=== PATIENT | male | born 1935 | race Caucasian/White ===

== ENCOUNTER → 2017-10-31 10:21 | Outpatient (CLI) | payer MEDICARE, OTHER | END | disposition home or self-care (01) | LOC: D.US 10-24 11:00 | DX: I87.2 Venous insufficiency (chronic) (peripheral) (principal) ==

== ENCOUNTER 2018-08-18 14:02 | Observation (INO) | payer MEDICARE, OTHER ==
[~2018-08-18] VITALS: Ht 177.8 cm; Wt 108.9 kg
[2018-08-18] MEDS ORDERED: ZOCOR20 MG PO (14:31)
[2018-08-18] MEDS ORDERED: ELAVIL25 MG PO (14:31)
[2018-08-18] MEDS ORDERED: PIOGLITAZONE15 MG PO (14:33)
[2018-08-18] MEDS ORDERED: METOPROLOL TART50 MG PO (14:34)
[2018-08-18] MEDS ORDERED: GLIPIZIDE10 MG PO (14:34)
[2018-08-18 14:56] LABS: BASOPHILS 0.2 % (0-2); EOSINOPHILS 0.5 % (0-7); HEMATOCRIT 41.9 % (42.0-54.0); HEMOGLOBIN 13.7 g/dL (13.5-17.5); IMMATURE GRANULOCYTES 0.6 % (0-5); MCH 31.8 pg (26.0-34.0); MCHC 32.7 g/dL (31.0-37.0); MCV 97.2 fL (80.0-100.0); MEAN PLATELET VOLUME 10.7 fL (7.4-10.4); NEUTROPHILS 87.7 % (40-80); PLATELET COUNT 133 10x3/uL (130-400); RBC 4.31 10x6/uL (4.20-6.10); RDW 13.8 % (11.5-14.5); WBC 9.3 10x3/uL (4.8-10.8)
[2018-08-18 15:05] LABS: APTT 26.8 SECONDS (22.8-39.4); INR 1.09 (0.85-1.17); PROTIME 13.6 SECONDS (11.6-15.0)
[2018-08-18 15:12] LABS: ALBUMIN 2.8 g/dL (3.4-5.0); ALKALINE PHOSPHATASE 41 U/L (46-116); ALT (SGPT) 17 U/L (10-68); BILIRUBIN - TOTAL 0.47 mg/dL (0.2-1.3); CALC OSMOLALITY 288 mosm/kg (275-300); CALCIUM 8.5 mg/dL (8.5-10.1); CARBON DIOXIDE 25.9 mmol/L (21.0-32.0); CHLORIDE - SERUM 105 mmol/L (98-107); CREATININE - SERUM 1.3 mg/dL (0.6-1.3); GLUCOSE 204 mg/dL (74-106); POTASSIUM - SERUM 4.2 mmol/L (3.5-5.1); PROTEIN - SERUM 6.5 g/dL (6.4-8.2); SODIUM 138 mmol/L (136-145); UREA NITROGEN 31 mg/dL (7-18); eGFR NON AFRICAN AMERICAN 56 mL/min (90-120)
[2018-08-18 15:23] LABS: CREATINE KINASE 186 UL (21-232); MAGNESIUM - SERUM 1.9 mg/dL (1.8-2.4); THYROID STIMULATING HORMONE 4.05 uIU/mL (0.36-3.74)
[2018-08-18 15:25] LABS: TROPONIN-I < 0.017 ng/mL (0.000-0.060)
[2018-08-18 17:01] VITALS: BP 160/84
[2018-08-18 17:58] VITALS: BP 152/94
[2018-08-18 22:39] VITALS: BP 161/77; BMI 34.5
[2018-08-18 23:48] LABS: CREATINE KINASE 437 UL (21-232); TROPONIN-I 0.017 ng/mL (0.000-0.060)
[2018-08-18 23:49] LABS: CKMB 2.5 U/L (0.0-3.6)
[2018-08-19 00:19] VITALS: BP 144/74
[2018-08-19 06:06] LABS: BASOPHILS 0.2 % (0-2); EOSINOPHILS 0.6 % (0-7); HEMOGLOBIN 13.3 g/dL (13.5-17.5); IMMATURE GRANULOCYTES 0.2 % (0-5); LYMPHOCYTES 13.5 % (15-50); MCHC 33.3 g/dL (31.0-37.0); MCV 96.4 fL (80.0-100.0); MEAN PLATELET VOLUME 10.7 fL (7.4-10.4); MONOCYTES 6.8 % (2-11); NEUTROPHILS 78.7 % (40-80); PLATELET COUNT 149 10x3/uL (130-400); RBC 4.15 10x6/uL (4.20-6.10); WBC 8.1 10x3/uL (4.8-10.8)
[2018-08-19 06:30] LABS: ANION GAP 11.8 mmol/L (8-16); CALCIUM 8.4 mg/dL (8.5-10.1); CARBON DIOXIDE 26.5 mmol/L (21.0-32.0); CREATININE - SERUM 1.2 mg/dL (0.6-1.3); POTASSIUM - SERUM 4.3 mmol/L (3.5-5.1)
[2018-08-19 08:47] VITALS: BP 128/60
[2018-08-19 13:02] VITALS: BP 144/68
[2018-08-19 13:11] VITALS: Ht 177.8 cm; Wt 108.9 kg
[2018-08-19 15:50] VITALS: BP 124/58
[2018-08-19 20:00] VITALS: BP 115/61
[2018-08-20] VITALS: BP 139/76
[2018-08-20 04:00] VITALS: BP 149/63
[2018-08-20 06:37] LABS: BASOPHILS 0.3 % (0-2); HEMATOCRIT 38.8 % (42.0-54.0); HEMOGLOBIN 12.8 g/dL (13.5-17.5); IMMATURE GRANULOCYTES 0.4 % (0-5); LYMPHOCYTES 12.4 % (15-50); MCH 31.8 pg (26.0-34.0); MCV 96.5 fL (80.0-100.0); MEAN PLATELET VOLUME 11.3 fL (7.4-10.4); MONOCYTES 9.3 % (2-11); NEUTROPHILS 76.6 % (40-80); PLATELET COUNT 153 10x3/uL (130-400); RBC 4.02 10x6/uL (4.20-6.10); RDW 14.2 % (11.5-14.5); WBC 7.1 10x3/uL (4.8-10.8)
[2018-08-20 06:53] LABS: ANION GAP 11.5 mmol/L (8-16); CALCIUM 8.6 mg/dL (8.5-10.1); CARBON DIOXIDE 25.3 mmol/L (21.0-32.0); CREATININE - SERUM 1.3 mg/dL (0.6-1.3); POTASSIUM - SERUM 3.8 mmol/L (3.5-5.1)
[2018-08-20 08:00] VITALS: BP 131/82
[2018-08-20 12:00] VITALS: BP 126/65
[2018-08-20 14:27] LABS: APPEARANCE CLEAR (CLEAR); BILIRUBIN NEGATIVE (NEGATIVE); COLOR YELLOW (YELLOW); GLUCOSE 500 mg/dL (NEGATIVE); KETONE SMALL mg/dL (NEGATIVE); NITRITE NEGATIVE (NEGATIVE); PROTEIN NEGATIVE (NEGATIVE); SPECIFIC GRAVITY 1.025 (1.005-1.020); UROBILINOGEN NORMAL (NORMAL)
--- NOTE | 2018-08-20 15:21 | MORECARE ---
CASE MANAGEMENT DISCHARGE SUMMARY PATIENT: CHRISTIAN GRAF UNIT: [id number] ADM DATE: 08/18/18 AGE: 82 : 33 SEX: M ROOM/BED: D.6248 AUTHOR: ASHELY MARIE PHYSICIAN: REFERRING PHYSICIAN: ROSEANNE BALDERAS MD DATE OF SERVICE: 08/20/18 Discharge Plan Patient Name: CHRISTIAN GRAF [facility] [facility] 1935 Planned Disposition: Inpatient Rehab Anticipated Discharge Date: 08/20/18 Discharge Date: Expected LOS: 2 Initial Reviewer: [email or web address] Initial Review Date: 08/20/2018 Generated: 08/20/18 4:21 pm Comments DCP- Discharge Planning Updated by [email or web address]: Monty Fried on 08/20/18 2:[address] Patient Name: CHRISTIAN GRAF Admission Status: ER Accout number: [id number] Admission Date: 08-18-2018 : 1935 Admission Diagnosis: Attending: ROSEANNE BALDERAS Current LOS: 2 Anticipated DC Date: 08-20-2018 Planned Disposition: Inpatient Rehab Primary Insurance: MEDICARE A & B PLANNED EXTERNAL PROVIDER: [facility] INPATIENT REHAB Discharge Planning Comments: CM RECEIVED ORDER FOR INPATIENT REHAB PRESCREENING. CM MET WITH PT AND SON IN ROOM TO DISCUSS DISCHARGE PLANNING AND NEEDS. CHRISTIAN GRAF provided verbal consent to discuss current and ongoing needs with/in the presence of: HIS SON. PT REPORTS LIVING AT HOME DEPENDENTLY WITH SPOUSE WHO ASSISTS PT WITH DRESSING. PT HAS SEVERAL OLD WALKER WITH NO MEDICAL EQUIPMENT PROVIDER PREFERENCE. PT HAS NO OUTSIDE SERVICES ASSISTING IN THE HOME. CM DISCUSSED AVAILABILITY OF HOME HEALTH, REHAB SERVICES AND MEDICAL EQUIPMENT. CM DISCUSSED INPATIENT REHAB PROVIDERS, LOCATIONS, PROVIDERS AND SERVICES. PT INITIALLY STATES HE WOULD RATHER GO HOME. PT'S SON DISCUSSED REHAB WITH PT AND EXPLAINED THAT PT IS NOT ABLE TO CURRENTLY GET OUT OF BED INDEPENDENTLY NOR IS HE ABLE TO STAND FROM A CHAIR WITHOUT ASSITANCE. CM DISCUSSED SAFE DISCHARGE PLAN. PT AGREES TO CONSIDER INPATIENT REHAB AT [place] RECOMMENDED BY DR. BALDERAS. PT REPORTS HIS SON WILL PICK HIM UP FOR DISCHARGE HOME FROM REHAB. CM NOTIFIED ROSELINE OF INPATIENT REHAB WHO INFORMED CM THAT THERE IS STILL PENDING CONSULT FOR DR. HERNANDEZ. CM WAITING CONSULT FROM DR. HERNANDEZ AND ADMISSION DETERMINATION FROM [facility] RE[facility]. Pediatrics Physician: Monty Fried DCPIA - Discharge Planning Initial Assessment Updated by [email or web address]: Monty Fried on 08/20/18 3:10 pm * Is the patient Alert and Oriented? Yes * How many steps to enter\exit or inside your home? * PCP DR. BALDERAS * Pharmacy [facility]. * Preadmission Environment Home with Family * ADLs Partial Dependent * Partial ADLs (Assistance needed) Dressing * Equipment Walker * Other Equipment NO MEDICAL EQUIPMENT PROVIDER PREFERENCE * List name and contact numbers for known caregivers / representatives who currently or will assist patient after discharge: MARLEY GRAF, SPOUSE, * Verbal permission to speak to the caregivers and representatives has been obtained from the patient. Yes * Community resources currently utilized None * Please name any agencies selected above. NONE * Additional services required to return to the preadmission environment? Yes * Can the patient safely return to the preadmission environment? Yes * Has this patient been hospitalized within the prior 30 days at any hospital? No Patient Name: CHRISTIAN GRAF Page 47546 at 1521 All edits/amendments must be made on the electronic document DICTATION DATE: 08/20/181520 INGOT STRIPPER: SANTY 08/20/181520 RPT#: [id number] DC DATE: STATUS: ADM IN [facility] [address] [place] [address] END OF REPORT
[2018-08-20 16:37] VITALS: BP 130/76
[2018-08-20 20:00] VITALS: BP 141/82
[2018-08-21 00:18] VITALS: BP 144/68
[2018-08-21 04:34] VITALS: BP 145/94
[2018-08-21 06:50] LABS: BASOPHILS 0.1 % (0-2); EOSINOPHILS 0.8 % (0-7); HEMATOCRIT 36.6 % (42.0-54.0); HEMOGLOBIN 12.1 g/dL (13.5-17.5); IMMATURE GRANULOCYTES 0.1 % (0-5); LYMPHOCYTES 8.6 % (15-50); MCH 31.5 pg (26.0-34.0); MCHC 33.1 g/dL (31.0-37.0); MCV 95.3 fL (80.0-100.0); MEAN PLATELET VOLUME 10.4 fL (7.4-10.4); MONOCYTES 7.8 % (2-11); NEUTROPHILS 82.6 % (40-80); PLATELET COUNT 133 10x3/uL (130-400); RBC 3.84 10x6/uL (4.20-6.10); WBC 7.1 10x3/uL (4.8-10.8)
[2018-08-21 07:19] LABS: ANION GAP 12.2 mmol/L (8-16); CALCIUM 8.5 mg/dL (8.5-10.1); CARBON DIOXIDE 23.7 mmol/L (21.0-32.0); CREATININE - SERUM 1.1 mg/dL (0.6-1.3); POTASSIUM - SERUM 3.9 mmol/L (3.5-5.1)
[2018-08-21 07:41] VITALS: BP 165/75
[2018-08-21 11:36] VITALS: BP 135/61
--- NOTE | 2018-08-21 11:56 | MORECARE ---
CASE MANAGEMENT DISCHARGE SUMMARY PATIENT: CHRISTIAN GRAF UNIT: [id number] ADM DATE: 08/18/18 AGE: 82 : 33 SEX: M ROOM/BED: D.[facility]5 AUTHOR: ASHELY MARIE PHYSICIAN: REFERRING PHYSICIAN: ROSEANNE BALDERAS MD DATE OF SERVICE: 08/21/18 Discharge Plan Patient Name: CHRISTIAN GRAF [facility] [facility] 1935 Planned Disposition: Inpatient Rehab Anticipated Discharge Date: 08/21/18 Discharge Date: Expected LOS: 3 Initial Reviewer: [email or web address] Initial Review Date: 08/20/2018 Generated: 08/21/18 12:55 pm Comments DCP- Discharge Planning Updated by [email or web address]: Monty Fried on 08/21/18 10:[address] Patient Name: CHRISTIAN GRAF Encounter No: [id number] : 1935 Primary Insurance: MEDICARE A & B Anticipated DC Date: 08-21-2018 Planned Disposition: Inpatient Rehab External Planned Provider: [facility] INPATIENT REHAB DCP follow-up note: CM RECEIVED MESSAGE FROM MAHNAZ OF INPATIENT REHAB, THEY PLAN TO ACCEPT PT TODAY FOR REHAB; HUAN OF INPATIENT REHAB ADVISED THEY WILL ACCEPT AFTER WOUND CARE LOOKS [facility]. PT NOTIFIED, IN AGREEMENT WITH DISCHARGE TO INPATIENT REHAB. CM NOTIFIED DR. BALDERAS'S NURSE SAADIA. NOTIFY INPATIENT REHAB ONCE DISCAHRGE ORDERS ARE RECEIVED. [facility] INPATIENT REHAB TO CONTACT MED 2 NURSE WITH ROOM NUMBER WHEN READY TO ACCEPT PT AND NURSE REPORT. DARRELL Arguello DCP- Discharge Planning Updated by [id number]: Monty Fried on 08/20/18 2:[address] Patient Name: CHRISTIAN GRAF Admission Status: ER Accout number: [id number] Admission Date: 08-18-2018 : 1935 Admission Diagnosis: Attending: ROSEANNE BALDERAS Current LOS: 2 Anticipated DC Date: 08-20-2018 Planned Disposition: Inpatient Rehab Primary Insurance: MEDICARE A & B PLANNED EXTERNAL PROVIDER: [facility] INPATIENT REHAB Discharge Planning Comments: CM RECEIVED ORDER FOR INPATIENT REHAB PRESCREENING. CM MET WITH PT AND SON IN ROOM TO DISCUSS DISCHARGE PLANNING AND NEEDS. CHRISTIAN GRAF provided verbal consent to discuss current and ongoing needs with/in the presence of: HIS SON. PT REPORTS LIVING AT HOME DEPENDENTLY WITH SPOUSE WHO ASSISTS PT WITH DRESSING. PT HAS SEVERAL OLD WALKER WITH NO MEDICAL EQUIPMENT PROVIDER PREFERENCE. PT HAS NO OUTSIDE SERVICES ASSISTING IN THE HOME. CM DISCUSSED AVAILABILITY OF HOME HEALTH, REHAB SERVICES AND MEDICAL EQUIPMENT. CM DISCUSSED INPATIENT REHAB PROVIDERS, LOCATIONS, PROVIDERS AND SERVICES. PT INITIALLY STATES HE WOULD RATHER GO HOME. PT'S SON DISCUSSED REHAB WITH PT AND EXPLAINED THAT PT IS NOT ABLE TO CURRENTLY GET OUT OF BED INDEPENDENTLY NOR IS HE ABLE TO STAND FROM A CHAIR WITHOUT ASSITANCE. CM DISCUSSED SAFE DISCHARGE PLAN. PT AGREES TO CONSIDER INPATIENT REHAB AT [place] RECOMMEND[place] BY DR. BALDERAS. PT REPORTS HIS SON WILL PICK HIM UP FOR DISCHARGE HOME FROM REHAB. CM NOTIFIED ROSELINE OF INPATIENT REHAB WHO INFORMED CM THAT THERE IS STILL PENDING CONSULT FOR DR. HERNANDEZ. CM WAITING CONSULT FROM DR. HERNANDEZ AND ADMISSION DETERMINATION FROM [facility] INPATIENT RE[facility]. Crushing Machine Operator: Monty Fried DCPIA - Discharge Planning Initial Assessment Updated by [email or web address]: Monty Fried on 08/20/18 3:10 pm * Is the patient Alert and Oriented? Yes * How many steps to enter\exit or inside your home? * PCP DR. BALDERAS * Pharmacy [facility]. * Preadmission Environment Home with Family * ADLs Partial Dependent * Partial ADLs (Assistance needed) Dressing * Equipment Walker * Other Equipment NO MEDICAL EQUIPMENT PROVIDER PREFERENCE * List name and contact numbers for known caregivers / representatives who currently or will assist patient after discharge: MARLEY GRAF, SPOUSE, * Verbal permission to speak to the caregivers and representatives has been obtained from the patient. Yes * Community resources currently utilized None * Please name any agencies selected above. NONE * Additional services required to return to the preadmission environment? Yes * Can the patient safely return to the preadmission environment? Yes * Has this patient been hospitalized within the prior 30 days at any hospital? No Last DP export: 08/20/18 2:21 p Patient Name: CHRISTIAN GRAF Page 74903 at 1156 All edits/amendments must be made on the electronic document DICTATION DATE: 08/21/181154 FURNACE OPERATOR OIL OR GAS: SANTY 08/21/181154 RPT#: [id number] DC DATE: STATUS: ADM IN [facility] [address] [place] [address] END OF REPORT
--- NOTE | 2018-08-21 12:11 | MORECARE ---
CASE MANAGEMENT DISCHARGE SUMMARY PATIENT: CHRISTIAN GRAF UNIT: [id number] ADM DATE: 08/18/18 AGE: 82 : 33 SEX: M ROOM/BED: D.[facility]5 AUTHOR: ASHELY MARIE PHYSICIAN: REFERRING PHYSICIAN: ROSEANNE BALDERAS MD DATE OF SERVICE: 08/21/18 Discharge Plan Patient Name: CHRISTIAN GRAF [facility] [facility] 1935 Planned Disposition: Inpatient Rehab Anticipated Discharge Date: 08/21/18 Discharge Date: Expected LOS: 3 Initial Reviewer: [email or web address] Initial Review Date: 08/20/2018 Generated: 08/21/18 1:11 pm Comments DCP- Discharge Planning Updated by [email or web address]: Monty Fried on 08/21/18 10:[address] Patient Name: CHRISTIAN GRAF Encounter No: [id number] : 1935 Primary Insurance: MEDICARE A & B Anticipated DC Date: 08-21-2018 Planned Disposition: Inpatient Rehab External Planned Provider: [facility] INPATIENT REH[facility] DCP follow-up note: CM RECEIVED MESSAGE FROM MAHNAZ OF INPATIENT REHAB, THEY PLAN TO ACCEPT PT TODAY FOR REHAB; HUAN OF INPATIENT REHAB ADVISED THEY WILL ACCEPT AFTER WOUND CARE LOOKS AT [facility]. PT NOTIFIED, IN AGREEMENT WITH DISCHARGE TO INPATIENT REHAB. CM NOTIFIED DR. BALDERAS'S NURSE SAADIA. NOTIFY INPATIENT REHAB ONCE DISCAHRGE ORDERS ARE RECEIVED. [facility] INPATIENT REHAB TO CONTACT MED 2 NURSE WITH ROOM NUMBER WHEN READY TO ACCEPT PT AND NURSE REPORT. DARRELL Arguello DCP- Discharge Planning Updated by [id number]: Monty Fried on 08/20/18 2:[address] Patient Name: CHRISTIAN GRAF Admission Status: ER Accout number: [id number] Admission Date: 08-18-2018 : 1935 Admission Diagnosis: Attending: ROSEANNE BALDERAS Current LOS: 2 Anticipated DC Date: 08-20-2018 Planned Disposition: Inpatient Rehab Primary Insurance: MEDICARE A & B PLANNED EXTERNAL PROVIDER: [facility] INPATIENT REH[facility] Discharge Planning Comments: CM RECEIVED ORDER FOR INPATIENT REHAB PRESCREENING. CM MET WITH PT AND SON IN ROOM TO DISCUSS DISCHARGE PLANNING AND NEEDS. CHRISTIAN GRAF provided verbal consent to discuss current and ongoing needs with/in the presence of: HIS SON. PT REPORTS LIVING AT HOME DEPENDENTLY WITH SPOUSE WHO ASSISTS PT WITH DRESSING. PT HAS SEVERAL OLD WALKER WITH NO MEDICAL EQUIPMENT PROVIDER PREFERENCE. PT HAS NO OUTSIDE SERVICES ASSISTING IN THE HOME. CM DISCUSSED AVAILABILITY OF HOME HEALTH, REHAB SERVICES AND MEDICAL EQUIPMENT. CM DISCUSSED INPATIENT REHAB PROVIDERS, LOCATIONS, PROVIDERS AND SERVICES. PT INITIALLY STATES HE WOULD RATHER GO HOME. PT'S SON DISCUSSED REHAB WITH PT AND EXPLAINED THAT PT IS NOT ABLE TO CURRENTLY GET OUT OF BED INDEPENDENTLY NOR IS HE ABLE TO STAND FROM A CHAIR WITHOUT ASSITANCE. CM DISCUSSED SAFE DISCHARGE PLAN. PT AGREES TO CONSIDER INPATIENT REHAB AT [place] RECOMMENDED BY DR. BALDERAS. PT REPORTS HIS SON WILL PICK HIM UP FOR DISCHARGE HOME FROM REHAB. CM NOTIFIED ROSELINE OF INPATIENT REHAB WHO INFORMED CM THAT THERE IS STILL PENDING CONSULT FOR DR. HERNANDEZ. CM WAITING CONSULT FROM DR. HERNANDEZ AND ADMISSION DETERMINATION FROM [facility] INPAT[facility] RE[facility]. Animal Keeper: Monty Fried DCPIA - Discharge Planning Initial Assessment Updated by [id number]: Monty Fried on 08/20/18 3:10 pm * Is the patient Alert and Oriented? Yes * How many steps to enter\exit or inside your home? * PCP DR. BALDERAS * Pharmacy [facility]. * Preadmission Environment Home with Family * ADLs Partial Dependent * Partial ADLs (Assistance needed) Dressing * Equipment Walker * Other Equipment NO MEDICAL EQUIPMENT PROVIDER PREFERENCE * List name and contact numbers for known caregivers / representatives who currently or will assist patient after discharge: MARLEY GRAF, SPOUSE, * Verbal permission to speak to the caregivers and representatives has been obtained from the patient. Yes * Community resources currently utilized None * Please name any agencies selected above. NONE * Additional services required to return to the preadmission environment? Yes * Can the patient safely return to the preadmission environment? Yes * Has this patient been hospitalized within the prior 30 days at any hospital? No Last DP export: 08/21/18 10:55 a Patient Name: CHRISTIAN GRAF Page [id number] Electronically Signed by ASHELY [facility] on 08/21/18 at 1211 All edits/amendments must be made on the electronic document DICTATION DATE: 08/21/181210 CLUB LOUNGE ATTENDANT: SANTY 08/21/181210 RPT#: [id number] DC DATE: STATUS: ADM IN [facility] [address] [place] [address] END OF REPORT
[2018-08-21 15:28] VITALS: BP 149/64
[2018-08-21] MEDS ORDERED: ULTRAM50 MG PO (16:34)
== END 2018-08-21 17:45 ==
LOC: D.ER 14:02 → D.EDHOLD 17:51 → D.M2 17:51 → OBSVTIME 17:54 → D.M2 17:58
PROVIDERS: Emergency Medicine; Family Medicine; ADMIT Family Medicine; ATTEND Family Medicine
DX: R55 Syncope and collapse (principal); I44.30 Unspecified atrioventricular block; E11.9 Type 2 diabetes mellitus without complications; M51.36 Other intervertebral disc degeneration, lumbar region; M47.816 Spondylosis without myelopathy or radiculopathy, lumbar region; S32.009A Unspecified fracture of unspecified lumbar vertebra, initial encounter for closed fracture; W18.30XA Fall on same level, unspecified, initial encounter; I10 Essential (primary) hypertension; E78.5 Hyperlipidemia, unspecified

== ENCOUNTER 2018-08-21 18:00 | Inpatient (IN) | payer MEDICARE, OTHER ==
[~2018-08-21] VITALS: Ht 177.8 cm; Wt 106.6 kg
--- NOTE | ~2018-08-21 | RHP ---
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 HISTORY OF PRESENT ILLNESS: The patient is an 82-year-old gentleman who presents secondary to AV block, syncope, and collapse. He presented to ED on 08/18/2018, becoming dizzy, diaphoretic and palpitations. He had a syncopal episode prior to coming in. He says he was at [employer], seated in the social [employer] dining room and it seemed to come out of nowhere. He had no positional changes. No nausea, no chest pain. He was alert and oriented times 3 when he presented. EKG showed a sinus rhythm with first degree AV block and PACs, right bundle branch block, left anterior fascicular block. Labs showed BUN and creatinine ratio, which was elevated and a random blood sugar. The patient did look somewhat dehydrated. CT of his spine showed acute mildly displaced spinous fracture of L5. He was admitted with cardiology consultation for evaluation of his syncope and heart block. Telemetry. Sliding scale for diabetes. Dr. Ken was consulted. No brace or surgical intervention was recommended. Previously, the patient was independent with a rolling walker for ADLs and mobility. He still drives. He is very active. Currently, he is mod to max assist for ADLs and mobility. He had been immobilized, which affects his tolerance to PT. He is weak, especially in his lower extremities. He has got fair balance. He is mod assist for sit to stand and bed to chair. He has ambulated 6 feet with PT using a rolling walker, gait belt, and 35% assistance. He and his are motivated for him to regain his strength and return back home. Barriers to his discharge are continued telemetry for arrhythmia, weakness, only ambulating 6 feet, and back pain of 8/10 requiring a regular dosages of pain medicine. COMORBIDITIES: In this patient include heart block, syncope and collapse, back pain, weakness, falls, dehydration, bifascicular block, hypertension, palpitations, severe spinal stenosis and severe bilateral neural foraminal narrowing in his back. PAST MEDICAL HISTORY: Significant for diabetes, hypertension, hernia, chronic back pain. PAST SURGICAL HISTORY: None. ALLERGIES: No known drug allergies. CURRENT MEDICATIONS: Include Actos 30 mg daily, metoprolol 50 mg daily. He is on Glucotrol 5 mg b.i.d. with meals. He is on tramadol 100 mg q.6 hours p.r.n. pain, simvastatin 20 mg at bedtime, and Elavil 25 mg at bedtime. HABITS: No current alcohol or tobacco use. FAMILY HISTORY: Noncontributory. SOCIAL HISTORY: The patient hopes to return back home and get back to his prior level of functioning. REVIEW OF SYSTEMS: HISTORY AND PHYSICAL [id number] CHRISTIAN GRAF GENERAL: Does complain of little bit of weakness and fatigue. HEENT: Denies cold, cough, or congestion. CARDIOVASCULAR: Denies chest pain. PHYSICAL EXAMINATION: VITAL SIGNS: Stable, afebrile. GENERAL: A somewhat obese gentleman, in no acute distress, alert upon exam. HEENT: Normocephalic and atraumatic. Mucosa moist. NECK: Supple, with no lymphadenopathy. LUNGS: Clear at this time with no wheeze, rhonchi or rales. HEART: Regular rate and rhythm. No murmurs, rubs or gallops. ABDOMEN: Benign. EXTREMITIES: No clubbing, cyanosis or edema. NEUROLOGIC: Does have some noted weakness. LABORATORY DATA: His white count is 6.3, H&H 12 and 37, and platelet count was noted to be 136. His sodium is 137, potassium 4.4, BUN and creatinine of 40 and 1.0 and blood sugar is noted to be 179. ASSESSMENT: This is an 82-year-old gentleman admitted to the rehab with a working diagnosis of AV heart block. The patient has potential to make improvement. We instituted the following multidisciplinary therapies include, but not limited to physical, occupational, respiratory, speech, nutritional services, prosthetics and orthotics. Given his complex medical condition and risk for more complications, rehabilitation services cannot be provided at a low level of care such as skilled nurse facility. PLAN: 1. Admit to [facility] for intensive inpatient therapy to include the following disciplines: A. Physical therapy to improve gait, all transfer skills and bed mobility to a modified independent level. B. Occupational therapy to a modified independent level. C. Case management to assist with discharge planning and placement options. D. Nutrition to assist with nutritional needs. E. Rehabilitation nursing to assist in monitoring the patient's underlying medical conditions and to assist with any type of bowel or bladder management. 2. The patient's current medication and medical care will be continued. 3. We will discuss this patient during care team staff meeting this week. 4. I will see again in the a.m. TRANSINT:[id number] Voice Confirmation ID: [id number] DOCUMENT ID: [id number] JOSE notes whether there has been none or any medical/functional change since admission: - No change since prescreen. JOSE attests patient continues to be appropriate for IRF: - Continues to be appropriate. HISTORY AND PHYSICAL [id number] CHRISTIAN GRAF JOHN SCOTT MD CC: [id number] DICTATION DATE: 08/22/18 1038 ASSOCIATE PRINCIPAL: 08/22/18 1249 ADM IN [place] [id number] [place] [id number]
[~2018-08-21 18:00] MED LIST: ELAVIL25 MG PO; GLIPIZIDE10 MG PO; METOPROLOL TART50 MG PO; PIOGLITAZONE15 MG PO; ULTRAM50 MG PO; ZOCOR20 MG PO
[2018-08-21 19:00] VITALS: BP 166/76
--- NOTE | 2018-08-21 20:20 | NUR ---
GREETED PATIENT AND INTRODUCED MYSELF. HAD PATIENT SIGN ADMISSION PAPERWORK. PATIENT IS LAYING IN SUPINE POSITION. HOB AT 35 DEGREES. DENIES ANY FURTHER NEEDS AT THIS TIME. CALL LIGHT IN REACH.
[2018-08-21 23:03] VITALS: BP 166/76; BMI 33.7
--- NOTE | 2018-08-22 01:06 | NUR ---
PATIENT LAYING IN BED AND VERY CONFUSED OF HIS SURROUNDINGS. KEEPS TRYING TO GET UP. BED ALARM IS ON AN ACTIVE. CALL LIGHT IN REACH.
--- NOTE | 2018-08-22 05:38 | NUR ---
PATIENT AWAKE AND CONFUSED. CLEANED OF INCONTINENT URINE. COMPLETE LINEN CHANGE. PATIENT REPOSITIONED IN BED FOR COMFORT. CALL LIGHT IN REACH.
[2018-08-22 07:14] LABS: BASOPHILS 0.2 % (0-2); EOSINOPHILS 1.9 % (0-7); HEMATOCRIT 37.1 % (42.0-54.0); HEMOGLOBIN 12.1 g/dL (13.5-17.5); IMMATURE GRANULOCYTES 0.5 % (0-5); LYMPHOCYTES 11.4 % (15-50); MCH 31.3 pg (26.0-34.0); MCHC 32.6 g/dL (31.0-37.0); MCV 96.1 fL (80.0-100.0); MEAN PLATELET VOLUME 10.3 fL (7.4-10.4); MONOCYTES 7.6 % (2-11); NEUTROPHILS 78.4 % (40-80); PLATELET COUNT 136 10x3/uL (130-400); RBC 3.86 10x6/uL (4.20-6.10); RDW 14.1 % (11.5-14.5); WBC 6.3 10x3/uL (4.8-10.8)
[2018-08-22 07:22] LABS: CALC OSMOLALITY 287 mosm/kg (275-300); CALCIUM 8.7 mg/dL (8.5-10.1); CARBON DIOXIDE 27.3 mmol/L (21.0-32.0); CHLORIDE - SERUM 103 mmol/L (98-107); GLUCOSE 179 mg/dL (74-106); POTASSIUM - SERUM 4.4 mmol/L (3.5-5.1); SODIUM 137 mmol/L (136-145); UREA NITROGEN 40 mg/dL (7-18); eGFR NON AFRICAN AMERICAN 76 mL/min (90-120)
[2018-08-22 08:00] VITALS: BP 165/78
[2018-08-22 09:33] VITALS: Ht 177.8 cm; Wt 106.6 kg
--- NOTE | 2018-08-22 12:32 | NUR ---
SITTING IN WC IN ROOM EATING LUNCH AND VISITING WITH FAMILY. DENIES NEEDS OR C/O. CALL LIGHT IN REACH
[2018-08-22 19:00] VITALS: BP 144/61
--- NOTE | 2018-08-22 19:30 | NUR ---
GREETED PATIENT AND INTRODUCED MYSELF. PATIENT IS SITTING IN WHEELCHAIR AND DENIES ANY NEEDS AT THIS TIME. CALL LIGHT IN REACH.
--- NOTE | 2018-08-23 01:19 | NUR ---
PATIENT RESTING QUIETLY WITH EYES CLOSED. HOB AT 30 DEGREES. SR UP X 2. BED IN LOWEST POSITION. ALARM ON AND WORKING PROPERLY. RESPIRATIONS EVEN. NO S/S OF DISTRESS. CALL LIGHT IN REACH.
--- NOTE | 2018-08-23 01:45 | NUR ---
PATIENT AWAKE AND SCREAMING. PATIENT IS CONFUSED TO WHERE HE IS AND CANT UNDERSTAND WHY HIS IS NOT LAYING NEXT TO TIME. REORIENTATED PATIENT TO SURROUNDINGS. CALL LIGHT IN REACH.
[2018-08-23 07:55] LABS: BASOPHILS 0.2 % (0-2); EOSINOPHILS 1.7 % (0-7); HEMATOCRIT 36.9 % (42.0-54.0); HEMOGLOBIN 12.2 g/dL (13.5-17.5); IMMATURE GRANULOCYTES 0.3 % (0-5); LYMPHOCYTES 9.4 % (15-50); MCH 31.5 pg (26.0-34.0); MCHC 33.1 g/dL (31.0-37.0); MCV 95.3 fL (80.0-100.0); MEAN PLATELET VOLUME 10.1 fL (7.4-10.4); MONOCYTES 7.1 % (2-11); NEUTROPHILS 81.3 % (40-80); PLATELET COUNT 141 10x3/uL (130-400); RBC 3.87 10x6/uL (4.20-6.10); RDW 13.9 % (11.5-14.5); WBC 6.1 10x3/uL (4.8-10.8)
[2018-08-23 08:02] VITALS: BP 178/96
[2018-08-23 08:08] LABS: CALC OSMOLALITY 281 mosm/kg (275-300); CALCIUM 8.4 mg/dL (8.5-10.1); CARBON DIOXIDE 24.7 mmol/L (21.0-32.0); CHLORIDE - SERUM 102 mmol/L (98-107); CREATININE - SERUM 0.9 mg/dL (0.6-1.3); GLUCOSE 176 mg/dL (74-106); POTASSIUM - SERUM 3.9 mmol/L (3.5-5.1); SODIUM 135 mmol/L (136-145); UREA NITROGEN 36 mg/dL (7-18); eGFR NON AFRICAN AMERICAN 85 mL/min (90-120)
--- NOTE | 2018-08-23 16:00 | NUR ---
SITTING UP IN WC IN ROOM. DENIES NEEDS OR C/O. CALL LIGHT IN REACH
--- NOTE | 2018-08-23 19:45 | NUR ---
PT IS RESTING IN BED WITH EYES OPEN. ALERT AND ORIENTED X 3. VOICED COMPLAINT OF JOSE LEG PAIN LEVEL OF 7. MEDICATED PER MAR. SPOUSE IS AT BEDSIDE. JOSE LEGS ELEVATED UP ON PILLOW. SR'S ARE UP X 3 IN BED. CALL LIGHT AND BEDSIDE TABLE ARE WITHIN EASY REACH.
[2018-08-23 20:06] VITALS: BP 168/96
--- NOTE | 2018-08-23 21:44 | NUR ---
PT RESTING IN BED WATCHING TV. NO NEEDS VOICED.
--- NOTE | 2018-08-24 00:01 | NUR ---
PT RESTING IN BED WITH EYES OPEN. PT IS VERY CONFUSED. STATES HE JUST WRECKED HIS JEEP, AND DOESNT KNOW WHAT TO DO. I ATTEMPTED TO REORIENT PT WITHOUT SUCCESS. HE DID CALM DOWN.
--- NOTE | 2018-08-24 01:29 | NUR ---
RESTING IN BED WITH RESPIRATIONS UNLABORED. CALLS OUT PERIODICALLY FOR ASSISTANCE. NO ACUTE DISTRESS NOTED. CALL LIGHT IN REACH.
--- NOTE | 2018-08-24 05:12 | NUR ---
PT RESTING IN BED WITH EYES CLOSED. NO ACUTE DISTRESS NOTED.
--- NOTE | 2018-08-24 15:38 | NUR ---
LAYING IN BED RESTING QUIETLY WITH EYES CLOSED. HAD PAIN MEDICATION RECENTLY AND VISITED WITH FAMILY WHO CAME TO SEE HIM. LEXII ASST WITH ALL ADL'S. UNABLE TO STAND BY SELF. CALL LIGHT IN REACH
--- NOTE | 2018-08-24 16:28 | NUR ---
PT C/O "SEEING BUGS" ON TV AND SINK. HE THINKS HIS MEDICATION MAY BE THE CAUSE. DR CUNNINGHAM NOTIFIED.
--- NOTE | 2018-08-24 17:57 | NUR ---
STILL CONFUSED. IS STILL SEEING THINGS IN ROOM BUT IS NOW TELLING HIS ROOM MATE "THIS NURSE HAS HER HANDS FULL WITH TWO PATIENTS, ONE IS HAVING TROUBLE WITH HIS BOWELS AND THE OTHER ONE KEEPS SEEING BUGS ON THE TV AND SINK." (TALKING ABOUT HIMSELF AND HIS ROOM MATE). CALL LIGHT IN REACH
[2018-08-24 20:00] VITALS: BP 131/63
--- NOTE | 2018-08-24 21:41 | NUR ---
THE PATIENT APPEARED TO BE SLEEPING BUT EASILY AWOKE WHEN STAFF ENTERED HIS ROOM. BED IS IN THE LOW POSITION WITH SIDERAILS X2 AND CALL LIGHT WITHIN REACH. THE PATIENT DEMONSTRATES APPROPRIATE USE OF A CALL LIGHT. THE PATIENT APPEARS COMFORTABLE WITH NO QUESTIONS OR CONCERNS AT THIS TIME.
--- NOTE | 2018-08-25 02:34 | NUR ---
THE PATIENT APPEARS TO BE SLEEPING COMFORTABLY. BED IS IN THE LOW POSITION WITH SIDERAILS X2 AND CALL LIGHT IN REACH.
--- NOTE | 2018-08-25 10:32 | NUR ---
PATIENT AWAKE AND SLIGHTLY CONFUSED. STATES THAT HIS BACK HURTS BUT DOES NOT WANT TO TAKE ANY PAIN MEDICATION. ATE 50% OF BREAKFAST. SLEEPING OFF AND ON THIS MORNING. WILL CONTINUE TO MONITOR. CALL LIGHT WITHIN REACH.
[2018-08-25 12:19] VITALS: BP 187/96
--- NOTE | 2018-08-25 14:01 | NUR ---
HERE VISITING. THINKS THAT PATIENT COULD HAVE A UTI BECAUSE OF ALL HIS CONFUSION THAT HE IS HAVING. TOLD HER THAT WE WOULD LET THE DOCTOR KNOW AND SEE IF A UA COULD BE ORDERED. EXPLAINED TO THE THAT HIS WBC'S ARE NORMAL AND TEMPERATURE IS ALSO IN A NORMAL RANGE AND THAT CONFUSION COULD BE FROM BEING IN A NEW ENVIRONMENT AND CURRENT ILLNESS BUT WE WOULD STILL LET DR. CUNNINGHAM KNOW. STATED THAT WHAT-EVER WE THOUGHT WAS BEST IS FINE.
--- NOTE | 2018-08-25 19:50 | NUR ---
PT IS RESTING IN WC WITH EYES OPEN. ALERT TO SELF ONLY. CONFUSED TO TIME, PLACE AND SITUATION. UNABLE TO RE ORIENT PT AT THIS TIME. PT ASSISTED WITH INC. CARE WITH TOTAL ASSIST, AND TRANSFERRED INTO BED WITH 2 PERSON MAX ASSIST. BLE NOTED WITH 4= EDEMA. RIGHT LEG IS WEEPING A BIT. SR'S ARE UP X 3 IN BED. CALL LIGHT AND BEDSIDE TABLE ARE WITHIN EASY REACH.
[2018-08-25 20:00] VITALS: BP 140/70
[2018-08-25 21:37] VITALS: BP 140/70
--- NOTE | 2018-08-25 22:47 | NUR ---
PT RESTING IN BED WITH EYES CLOSED.
--- NOTE | 2018-08-26 00:38 | NUR ---
RESTING IN BED WITH EYES CLOSED AND RESPIRATIONS UNLABORED. NO DISTRESS NOTED. CALL LIGHT IN REACH.
--- NOTE | 2018-08-26 06:21 | NUR ---
PT IS RESTING IN BED WITH EYES OPEN. NO NEEDS VOCIED.
[2018-08-26 07:06] LABS: BASOPHILS 0.1 % (0-2); EOSINOPHILS 0.6 % (0-7); HEMOGLOBIN 13.2 g/dL (13.5-17.5); IMMATURE GRANULOCYTES 0.8 % (0-5); LYMPHOCYTES 7.4 % (15-50); MCH 31.7 pg (26.0-34.0); MCHC 33.8 g/dL (31.0-37.0); MCV 93.8 fL (80.0-100.0); MEAN PLATELET VOLUME 10.4 fL (7.4-10.4); MONOCYTES 6.3 % (2-11); NEUTROPHILS 84.8 % (40-80); RBC 4.16 10x6/uL (4.20-6.10); RDW 13.7 % (11.5-14.5); WBC 7.8 10x3/uL (4.8-10.8)
[2018-08-26 07:08] LABS: CALC OSMOLALITY 283 mosm/kg (275-300); CALCIUM 8.8 mg/dL (8.5-10.1); CARBON DIOXIDE 23.4 mmol/L (21.0-32.0); CHLORIDE - SERUM 102 mmol/L (98-107); GLUCOSE 184 mg/dL (74-106); POTASSIUM - SERUM 3.5 mmol/L (3.5-5.1); SODIUM 136 mmol/L (136-145); UREA NITROGEN 31 mg/dL (7-18); eGFR NON AFRICAN AMERICAN 75 mL/min (90-120)
[2018-08-26 07:09] LABS: PLATELET COUNT 197 10x3/uL (130-400)
--- NOTE | 2018-08-26 08:00 | NUR ---
PATIENT VERY CONFUSED THIS MORNING. ASSISTED UP IN WHEELCHAIR TO EAT BRAKFAST BUT DID NOT EAT VERY MUCH BREAKFAST. MESSAGE LEFT FOR DR. CUNNINGHAM ABOUT GETTING A UA FOR POSSIBLE UTI DUE TO CONFUSION AND FOUL SMELLING URINE. WILL CONTINUE TO MONITOR.
[2018-08-26 08:06] VITALS: BP 181/83
--- NOTE | 2018-08-26 11:00 | NUR ---
ASYA RT STATED THAT PATIENT WAS C/O PAIN IN LEFT KNEE. REQUESTED THAT WE GET AN XRAY. XRAY ORDERED.
--- NOTE | 2018-08-26 11:20 | NUR ---
RADIOLOGY HERE TO DO XRAY.
--- NOTE | 2018-08-26 12:15 | NUR ---
XRAY RESULTS FAXED TO DR. CABA OFFICE.
--- NOTE | 2018-08-26 12:30 | NUR ---
DR. CUNNINGHAM HERE. ORDERED CONSULT FOR KNEE WITH DR. RAPHAEL.
--- NOTE | 2018-08-26 12:34 | NUR ---
PATIENT SITTING UP IN WHEELCHAIR EATING LUNCH. WAS UP FOR THERAPY BUT DIDN'T DO MUCH DUE TO PAIN. STILL HAVING SOME CONFUSION BUT NOT BAD IT WAS THIS MORNING.
--- NOTE | 2018-08-26 13:37 | NUR ---
'S OFFICE CALLED AND INFORMED OF CONSULT FOR PATIENT. DR. ESQUEDA IS POLICE RADIO DISPATCHER THIS WEEK. OFFICE STATED THAT THEY WILL LET [facility] KNOW. IS HERE AND INFORMED HER OF XRAY AND RESULTS. DR. CUNNINGHAM ALSO GAVE ORDERS FOR A UA.
--- NOTE | 2018-08-26 13:41 | NUR ---
ASSISTED PATIENT TO THE BATHROOM. VERY HARD FOR PATIENT TO STAND. C/O PAIN TO HIP AND LEG. MEDICATED WITH PRN ULTRAM. WILL CONTINUE TO MONITOR.
--- NOTE | 2018-08-26 16:00 | NUR ---
UA COLLECTED USING ASEPTIC TECHNIQUE. SMALL BLOOD CLOT OBTAINED WITH URINE. URINE SENT TO LAB. DR. ESQUEDA'S NURSE CAME BY TO SEE PATIENT. WILL ORDER A MRI
[2018-08-26 16:52] LABS: APPEARANCE TURBID (CLEAR); BILIRUBIN NEGATIVE (NEGATIVE); COLOR RED (YELLOW); GLUCOSE NEGATIVE (NEGATIVE); KETONE NEGATIVE (NEGATIVE); NITRITE NEGATIVE (NEGATIVE); PROTEIN TRACE mg/dL (NEGATIVE); UROBILINOGEN NORMAL (NORMAL)
[2018-08-26 16:53] LABS: BACTERIA FEW /hpf (NONE SEEN); RED CELLS - URINE >50 /hpf (0-5); WHITE CELLS - URINE 0-5 /hpf (0-5)
[2018-08-26 19:00] VITALS: BP 155/77
--- NOTE | 2018-08-26 19:44 | NUR ---
PT RESTING IN BED WITH EYES OPEN. HE IS SOMNELENT, AND NOT SPEAKING TO ME. VSS. NO ACUTE DISTRESS NOTED. JOSE FEET ELEVATED UP ON 2 PILLOWS TO PROMOTE REDUCTION OF 4+ EDEMA. SR'S ARE UP X 3 IN BED. CALL LIGHT AND BEDSIDE TABLE ARE WITHIN EASY REACH. BED ALARM IS ON.
--- NOTE | 2018-08-26 20:14 | NUR ---
BLADDER SCAN DONE TO CHECK FOR RETAINMENT. ZERO SHOWED FOR RESULTS X 5 SCANS.
--- NOTE | 2018-08-26 20:16 | NUR ---
PT IS STEADILY TALKING TO THE AIR ON HIS LEFT SIDE. HE DID NOT EVER ACKNOWLEDGE THAT I WAS IN THE ROOM DOING THE BLADDER SCAN. HE TALKED THE ENTIRE TIME IF HAVING A CONVERSATION WITH SOMEBODY.
--- NOTE | 2018-08-26 21:17 | NUR ---
PT RESTING IN BED WITH HEAD PULLED OVER INTO THE LEFT SIDE RAIL. HE IS STEADILY LOOKING AT THE WALL TO HIS LEFT AND TALKING. PT REPOSITIONED WITH 2 PERSON MAX ASSIST. HE VOICED COMPLAINT OF BACK PAIN WHILE TURNING, AND VOIDED INC. AT THIS TIME. LINDA CARE DONE. PT WOULD ANSWER QUESTIONS AT THIS TIME, BUT NOT WITH APPROPRIATE ANSWERS. PILLOWS USED TO POSITION PT, AND ELEVATE FEET UP OFF BED. CALL LIGHT AND BEDSIDE TABLE ARE WITHIN EASY REACH.
--- NOTE | 2018-08-27 00:10 | NUR ---
PT INC. OF URINE. LINDA CARE AND PAD CHANGE DONE. PT REPOSITIONED IN BED.
--- NOTE | 2018-08-27 00:25 | NUR ---
IN BED WITH RESPIRATIONS UNLABORED. REMAINS CONFUSED AND SOMEWHAT RESTLESS. INCONTINENCE CARE GIVEN. SAFETY MEASURES IN PLACE. WILL CONTINUE TO MONITOR.
--- NOTE | 2018-08-27 03:00 | NUR ---
PT IS RESTING QUIETLY IN BED WITH EYES CLOSED. RESPS ARE EVEN AND UNLABORED. NO ACUTE DISTRESS NOTED.
--- NOTE | 2018-08-27 05:57 | NUR ---
PT RESTING IN BED WITH EYES CLOSED. AWOKE EASILY TO VERBAL STIMULI. PT STATES HE HAD A GOOD NIGHTS SLEEP, AND IS FEELING MUCH BETTER THIS MORNING.
[2018-08-27 08:00] VITALS: BP 176/78
--- NOTE | 2018-08-27 09:55 | NUR ---
LAYING ON BACK RESTING QUIETLY IN BED. WILL AROUSE TO LIGHT TACTILE STEMULI. IS CONFUSED BUT PLEASANT. CALL LIGHT IN REACH
--- NOTE | 2018-08-27 10:29 | NUR ---
Nutrition follow up: Regular diet ordered with no concentrated sweets Pt has less than optimal po intake past 2 days, however was eating good prior to this. Pt is drinking some Boost to supplement Pt is sleeping now. Spoke with nursing Will continue to monitor and follow up
--- NOTE | 2018-08-27 14:39 | NUR ---
MAX ASST TO TRANSFER TO BED THEN TO COT FOR MRI. WAS HAVING INCREASED PAIN TO LEFT HIP AND KNEE WITH TRANSFER. STILL CONFUSED.
--- NOTE | 2018-08-27 15:23 | NUR ---
PATIENT ADMITTED TO REHAB FROM ACUTE FLOOR. DR. BALDERAS IS HIS PCP. DME AT HOME IS A WALKER. DISCHARGE PLANS ARE FOR PATIENT O RETURN HOME AT [facility]. WILL CONTINUE TO FOLLOW WITH PATIENT.
[2018-08-27 19:01] VITALS: BP 158/68
--- NOTE | 2018-08-27 19:29 | NUR ---
PT IN BED LOW POSITION, FAMILY AT BEDSIDE, EYES CLOSED, AROUSED EASILY TO VOICE, BREATHING EVEN AND UNLABORED, NO IMMEDIATE NEEDS NOTED, ORIENTED X'S 4, FLUIDS AND CALL LIGHT WITHIN REACH
--- NOTE | 2018-08-28 03:51 | NUR ---
PT IN BED LOWEST POSITION, EYES CLOSED AROUSES EASILY TO VOICE, NO NEEDS NOTED, FLUIDS AND CALL LIGHT WITHIN REACH
[2018-08-28 07:45] VITALS: BP 152/65
--- NOTE | 2018-08-28 08:00 | NUR ---
SHIFT ASSMT COMPLETED.CL IN REACH.BREAKFAST GIVEN
--- NOTE | 2018-08-28 12:00 | NUR ---
SITTING UP IN WC.LINCH GIVEN.
--- NOTE | 2018-08-28 13:58 | NUR ---
PATIENT IN REHAB ROOM. WORKING WITH PHYSICAL THERAPIST. DENIES ANY PAIN/DISC
--- NOTE | 2018-08-28 15:31 | NUR ---
CARE TEAM MEETING: PATIENT SPOUSE ATTENDED MEETING. RECOMMENDATION WERE FOR PATIENT TO BE REFERRED TO A SNF . SHE WILL GO VISIT [facility] FOR POSSIBLE ADMISSION. WILL CONTINUE TO FOLLOW WITH PATIENT. TENATIVE DSICHARGE DATE IS 09/03/18.
[2018-08-28 19:00] VITALS: BP 138/66
--- NOTE | 2018-08-28 22:45 | NUR ---
PT IN BED LOWEST POSITION, EYES OPEN, A&O, BREATHING EVEN AND UNLABORED, NO NEEDS NOTED, FLUIDS AND CALL LIGHT WITHIN REACH
--- NOTE | 2018-08-29 08:00 | NUR ---
SHIFT ASSMT COMPLETED
[2018-08-29 08:21] VITALS: BP 125/76
[2018-08-29 19:00] VITALS: BP 170/84
--- NOTE | 2018-08-29 19:40 | NUR ---
PT SITTING UP IN BED, LOWEST POSITION,EYES CLOSED, AROUSES EASILY TO VOICE, BREATING SHALLOW EVEN AND UNLABORED, FLUIDS AND CALL LIGHT WITHIN REACH
[2018-08-30 08:00] VITALS: BP 146/92
--- NOTE | 2018-08-30 08:08 | NUR ---
SITTING UP IN BED FOR BREAKFAST. TENDS TO LEAN TO THE LEFT IN BED AND IN A CHAIR. IS CONFUSED. DOES NOT KNOW WHERE HE IS. HE STATED HE WAS CONFUSED THIS MORNING. CALL LIGHT IN REACH
--- NOTE | 2018-08-30 11:06 | NUR ---
PER PATIENT AND REQUEST A REFERAL TO [facility] HAS BEEN MADE FOR POSSIBLE ADMISSION ON 09/03/18. WILL CONTINUE TO FOLLOW WITH PATIENT.
--- NOTE | 2018-08-30 12:32 | NUR ---
SITTING UP IN WC IN ROOM EATING LUNCH. STATES HE FEELS BETTER AFTER IMPACTION REMOVED. ENCOURAGED HIM TO DRINK MORE WATER. CALL LIGHT IN REACH
--- NOTE | 2018-08-30 14:56 | NUR ---
PT C/O INCREASED PAIN TO LOW BACK AND LEGS. LAWRENCE PAYNE (DR ORTIZ'S NURSE) NOTIFIED AND SHE ADDED NORCO. MED GIVEN TO PT AND HE STATED EVEN IF IT MADE HIM MORE CONFUSED HE WAS OK WITH THAT BECAUSE HE HURT SO BAD. NURSE HAD SPOKEN TO HIS EARLIER ABOUT POSSIBILITY OF BACK BRACE, DIFFERENT PAIN MED AND WARM PACKS TO BACK FOR PAIN RELIEF. SHE WAS WORRIED ABOUT INCREASED CONFUSION WITH MORE OR DIFFERENT PAIN MEDS ASKED TO HOLD OFF FOR NOW ON THAT. HIS CONFUSION IS IMPROVING AT PRESENT. PT HAS CALL LIGHT IN REACH. HE WAS PLACED BACK IN BED BY THERAPY AND MADE COMFORTABLE POSSIBLE.
[2018-08-30 19:00] VITALS: BP 143/69
--- NOTE | 2018-08-30 19:27 | NUR ---
PT RESTING IN BED WITH EYES OPEN. ALERT AND ORIENTED X 3. PT VOICED COMPLAINT OF LEFT KNEE ACHING. HE STATED HE THOUGHT THE WEDGE UNDER HIS FEET WAS CAUSING IT. I REMOVED THE WEDGE, AND ELEVATED FEET OFF BE WITH A PILLOW. PT VOICED TOTAL RELIEF. 3+ EMEMA NOTED IN BOTH FEET. SR'S ARE UP X 3 IN BED. CALL LIGHT AND BEDSIDE TABLE ARE WITHIN EASY REACH. BED ALARM IS ON.
--- NOTE | 2018-08-30 22:53 | NUR ---
RESTING IN BED WITH EYES CLOSED.
--- NOTE | 2018-08-31 00:43 | NUR ---
RESTING IN BED WITH EYES CLOSED.
--- NOTE | 2018-08-31 01:24 | NUR ---
I have reviewed this patient and I concur with the Shift Assessment completed by the Licensed Practical Nurse today this shift.
--- NOTE | 2018-08-31 06:02 | NUR ---
PT RESTING IN BED WITH EYES OPEN. PT STATES HE FEELS MUCH BETTER THIS MORNING, BUT STILL HAS A PAIN LEVEL OF 6 IN HIS BACK. MEDICATED PER JUN. NO FURTHER NEEDS VOICED.
[2018-08-31 07:30] VITALS: BP 169/77
--- NOTE | 2018-08-31 10:11 | NUR ---
RESTING QUIETLY IN BED WITH EYES CLOSED. RESP EFFORT NON LABORED. HEAD OF BED ELEVATED 70 DEGREES. CALL LIGHT IN REACH
--- NOTE | 2018-08-31 16:06 | NUR ---
AWAKE AND WATCHING TV WHILE LAYING IN BED. IN ROOM VISITING WITH PT.
--- NOTE | 2018-08-31 19:04 | NUR ---
PT IS RESTING IN BED WITH EYES OPEN. ALERT TO SELF AND PLACE. CONFUSED TO TIME AND SITUATION. PLEASANT AND COOPERATIVE WITH STAFF. PT STATES HE FEELS BETTER TONIGHT. HE IS AGUA CALIENTE. 2+ EDEMA NOTED IN BLE. FEET ELEVATED UP ON A PILLOW WITH HEELS OFF BED. SR'S ARE UP X 2 IN BED. CALL LIGHT AND BEDSIDE TABLE ARE WITHIN EASY REACH.
[2018-08-31 20:24] VITALS: BP 122/74
--- NOTE | 2018-08-31 21:37 | NUR ---
PT RESTING IN BED WATCHING TV. NO NEEDS VOICED.
--- NOTE | 2018-09-01 00:40 | NUR ---
PT VOICED COMPLAINT OF BACK PAIN LEVEL OF 8. MEDICATED PER JUN.
--- NOTE | 2018-09-01 00:59 | NUR ---
I have reviewed this patient and I concur with the Shift Assessment completed by the Licensed Practical Nurse today this shift.
--- NOTE | 2018-09-01 04:16 | NUR ---
PT INC. OF A VERY LARGE AMOUNT OF URINE WITH A VERY STRONG AMMONIA SMELL. BED PADS CHANGED, AND LINDA CARE GIVEN. PT REPOSITIONED IN BED. URINAL PLACED BETWEEN LEGS.
--- NOTE | 2018-09-01 06:03 | NUR ---
RESTING IN BED WITH EYES OPEN. VOICED COMPLAINT OF BACK PAIN LEVEL OF 8. MEDICATED PER JUN.
[2018-09-01 07:30] VITALS: BP 198/97
--- NOTE | 2018-09-01 07:50 | NUR ---
SITTING UP IN BED RESTING QUIETLY. NO S/S DISTRESS. CALL LIGHT IN REACH
--- NOTE | 2018-09-01 08:10 | NUR ---
I have reviewed this patient and I concur with the Shift Assessment completed by the Licensed Practical Nurse today this shift.
--- NOTE | 2018-09-01 10:54 | NUR ---
RESTING QUIETLY IN BED. VISITED THIS AM AND HAS NOW GONE HOME. HE USES URINAL IN BED SOME STRESS INCONTINENCE NOTED. CALL LIGHT IN REACH
--- NOTE | 2018-09-01 15:51 | NUR ---
LAYING IN BED TALKING TO VISITORS. C/O PAIN TO LOW BACK. PAIN MEDS GIVEN ORDERED. CALL LIGHT IN REACH
--- NOTE | 2018-09-01 19:15 | NUR ---
PT IS RESTING IN BED WITH EYES OPEN. ALERT TO SELF AND PLACE. CONFUSED TO TIME AND SITUATION. PT STATES: "AM I EVER GOING TO GET BETTER AND GET OUT OF THIS PLACE." JOSE FEET ELEVATED UP ON PILLOWS TO REDUCE 2+ EDEMA. NO WEEPING NOTED. PT INC. OF URINE. LINDA CARE AND PAD CHANGE DONE. SR'S ARE UP X 2 IN BED. CALL LIGHT AND BEDSIDE TABLE ARE WITHIN EASY REACH.
[2018-09-01 19:25] VITALS: BP 182/84
--- NOTE | 2018-09-01 21:27 | NUR ---
PATIENT SLEEPING. WILL CONTINUE TO MONITOR. CALL LIGHT WITHIN REACH.
--- NOTE | 2018-09-02 01:22 | NUR ---
INC. CARE GIVEN. AND BED LINENS CHANGED. BED BATH GIVEN. PT ENCOURAGED TO USE URINAL/AND OR CALL THE NURSE WHEN HE VOIDS.
--- NOTE | 2018-09-02 04:53 | NUR ---
PT RESTING IN BED WITH EYES OPEN. INC. CARE GIVEN.
[2018-09-02 07:00] LABS: BASOPHILS 0.1 % (0-2); EOSINOPHILS 0.5 % (0-7); HEMATOCRIT 40.9 % (42.0-54.0); HEMOGLOBIN 13.8 g/dL (13.5-17.5); IMMATURE GRANULOCYTES 1.1 % (0-5); LYMPHOCYTES 8.3 % (15-50); MCH 31.7 pg (26.0-34.0); MCHC 33.7 g/dL (31.0-37.0); MCV 93.8 fL (80.0-100.0); MEAN PLATELET VOLUME 10.2 fL (7.4-10.4); MONOCYTES 8.6 % (2-11); NEUTROPHILS 81.4 % (40-80); PLATELET COUNT 205 10x3/uL (130-400); RBC 4.36 10x6/uL (4.20-6.10); RDW 13.8 % (11.5-14.5); WBC 11.1 10x3/uL (4.8-10.8)
[2018-09-02 07:33] LABS: ANION GAP 13.4 mmol/L (8-16); CALCIUM 8.7 mg/dL (8.5-10.1); CARBON DIOXIDE 25.9 mmol/L (21.0-32.0); CREATININE - SERUM 1.2 mg/dL (0.6-1.3); POTASSIUM - SERUM 4.3 mmol/L (3.5-5.1)
[2018-09-02 08:00] VITALS: BP 163/55
--- NOTE | 2018-09-02 08:00 | NUR ---
PT RESTING IN BED WITH EYES OPEN CALL LIGHT IN REACH NO PROBLEMS WILL MONITER
--- NOTE | 2018-09-02 15:58 | NUR ---
PT RESTING IN BED WITH EYES OPEN CALL LIGHT IN REACH WILL MONITER
--- NOTE | 2018-09-02 16:29 | NUR ---
I have reviewed this patient and I concur with the Shift Assessment completed by the Licensed Practical Nurse today this shift.
[2018-09-02 19:00] VITALS: BP 163/72
--- NOTE | 2018-09-02 19:35 | NUR ---
PT LYING IN BED WATCHING TV. CALL LIGHT IN REACH. DENIES NEEDS AT THIS TIME. BED IN LOW SIDE RAILS X2. RESP EVEN WITH WHEEZES ON EXPIRATORY. PT IS INCONT X2. BED IS CLEAN. A/O X2. TOTAL ASSIST. WILL CONTINUE TO MONITOR.
--- NOTE | 2018-09-02 22:27 | NUR ---
PT RESTING QUIETLY. CALL LIGHT IN REACH. NO SIGNS OF DISTRESS OR PAIN. LUNGS WHEEZES. BOWEL ACTIVE X4. RESP EVEN. PAIN PILL GIVEN EARLIER WITH NIGHT MEDS. NO COMPLAINTS OF PAIN SINCE MED WAS GIVEN. WCTM
--- NOTE | 2018-09-03 02:13 | NUR ---
RESTING IN BED WITH EYES CLOSED AND RESPIRATIONS UNLABORED. HAD SOME CONFUSION EARLIER IN SHIFT. NO DISTRESS NOTED AT THIS TIME. CALL LIGHT IN REACH.
--- NOTE | 2018-09-03 02:15 | NUR ---
RESTING IN BED EYES CLOSED AND WITH RESPIRATIONS UNLABORED. NO DISTRESS NOTED. CALL LIGHT IN REACH.
--- NOTE | 2018-09-03 03:00 | NUR ---
PT RESTING QUIETLY. CALL LIGHT IN REACH. NO SIGNS OF DISTRESS OR PAIN. RESP EVEN AND UNLABORED. [facility] BED ALARM ON.
--- NOTE | 2018-09-03 06:32 | NUR ---
FSBS 156
--- NOTE | 2018-09-03 07:27 | NUR ---
RESTING WO DISTRESS. NO C/O PAIN AT THIS TIME.
--- NOTE | 2018-09-03 07:37 | NUR ---
PT RESTING IN BED WITH EYES OPEN CALL LIGHT IN REACH NO PROBLEMS WILL MONITER
[2018-09-03 08:00] VITALS: BP 164/72
[2018-09-03] MEDS ORDERED: HYDROCODON-ACE1 EAC7 PO (09:26)
--- NOTE | 2018-09-03 10:19 | NUR ---
I have reviewed this patient and I concur with the Shift Assessment completed by the Licensed Practical Nurse today this shift.
--- NOTE | 2018-09-03 10:33 | NUR ---
PATIENT DISCHARGING TO [facility] VIA FACILITY VAN TODAY. NO HOME HEALTH OR DME NEEDED AT THIS TIME. AN APPOINTMENT WITH DR. BALDERAS WILL BE MADE AT TIME OF DISCHARGE FROM FACILTIY. DR. HERNANDEZ OFFICE WILL CALL SPOUSE WITH AN APPOINTMENT. PATIENT CHOICE FORM AND IMFM FORMS SIGNED, COPY GIVEN TO PATIENT AND FILED IN CHART. DISCHARGE INSTRUCTIONS WITH FIM DATA FAXED TO PCP, SNF AND REVIEWED WITH PATIENT.
--- NOTE | 2018-09-03 14:00 | NUR ---
PT DISCHARGED TO [facility]. PT LEFT VIA WHEELCHAIR.REPORT CALLED TO [facility].DISCHARGE SUMMARY AND MEDS SENT WITH SECRETARIAL STENOGRAPHER PT TOLERATED WELL
== END 2018-09-03 16:26 | DRG 310 ==
LOC: D.REHAB 18:00
PROVIDERS: ADMIT Emergency Medicine; ATTEND Emergency Medicine
DX: I44.0 Atrioventricular block, first degree (principal); R55 Syncope and collapse; M54.9 Dorsalgia, unspecified; R53.1 Weakness; E86.0 Dehydration; Z91.81 History of falling; I10 Essential (primary) hypertension; R00.2 Palpitations; M48.00 Spinal stenosis, site unspecified; E11.9 Type 2 diabetes mellitus without complications; S32.059D Unspecified fracture of fifth lumbar vertebra, subsequent encounter for fracture with routine healing; R41.82 Altered mental status, unspecified; M54.5 Low back pain; S83.242D Other tear of medial meniscus, current injury, left knee, subsequent encounter; M70.62 Trochanteric bursitis, left hip

== ENCOUNTER 2018-09-20 07:25 | Inpatient (IN) | payer MEDICARE, OTHER ==
[~2018-09-20] VITALS: Ht 177.8 cm; Wt 107.7 kg
--- NOTE | ~2018-09-20 | HEMODYNAMI ---
PATIENT:CHRISTIAN GRAF MEDICAL RECORD: [id number] : 31 LOCATION:[place] [address] ADMISSION DATE: 09/20/18 Generatedon:09/23/201816:26 Patient name: CHRISTIAN GRAF Patient #: [id number] SSN: DO B: 1935 Date of study: 09/23/2018 Page: Of Hemodynamic Procedure Report Patient Data Patient Demographics Procedure consent was obtained First Name: CHRISTIAN Gender: Male Last Name: LESIA : 1935 Patient #: [id number] Age: 83 year(s) Race: Unknown Additional ID: [id number] Contact details [address]: [address] [place] [address] State: [place] City: [place] Zip code: [address] Past Medical History Allergies: No known allergies Admission Admission Data Admission Date: 09/20/2018 Admission Time: 12:15 Room #: [facility] Height (in.): 70 BSA: 2.24 (m2) Height (cm.): 177.8 BMI: 33.72 (kg/m2) Weight (lbs.): 235 Weight (kg.): 106.59 Procedure Procedure Types Cath Procedure Peripheral Cath Diagnostic Procedure Supervisor Chassis Assembly Peripheral Procedures Venography IVC/SVC Inferior Venacava Filter Procedure Description Procedure Date Procedure Date: 09/23/2018 Procedure Start Time: 16:15 Procedure Staff Name Function Doug De La Cruz MD Performing Physician Bridget Dwyer RT Dry Chain Puller Monik Douglass RN Nurse Julianne Pastor RN Nurse Sahara Tristan RT Scrub Procedure Data Cath Procedure Fluoroscopy Diagnostic fluoroscopy Total fluoroscopy Time: 1.1 time: 1.1 min min Diagnostic fluoroscopy Total fluoroscopy dose: 412 dose: 412 mGy mGy Diagnostic catheters Device Type Used For End Catheter Placement Merit ULTRA BOLUS FLUSH 5Fr 65CM catheter ([id number]) Cook CHG-B 5FR 65CM catheter ([id number]) Procedure Medications Medication Administration Route Dosage Lidocaine 1% added to field 20 Heparin Flush Bag added to field 2 bags (1000units/500ml NS) Fentanyl I.V. 50 mcg Hemodynamics Rest BSA: 2.24 (m2) O2 Consumption: Estimated: 256.63 (ml/min) O2 Consumption indexed : Estimated:114.57 (ml/min/m) Heart Rate: 73 (bpm) Snapshots Pre Cath Intra NCS Post Cath Vital Signs Time Heart Resp SPO2 etCO2 NIBP (mmHg) Rhythm Pain Sedation Rate (ipm) (%) (mmHg) Status Level (bpm) 15:55:21 72 17 95 26.9 142/64(117) NSR 0 (11) 10(A) , No pain 15:59:39 73 22 98 26.1 143/68(111) NSR 0 (11) 10(A) , No pain 16:04:00 70 16 94 21.6 129/61(105) NSR 0 (11) 9(A) , No pain 16:08:59 70 17 97 19.4 Measuring NSR 0 (11) 9(A) , No pain 16:09:11 72 16 96 20.2 130/64(99) NSR 0 (11) 9(A) , No pain 16:12:23 73 23 91 0.7 134/65(102) NSR 0 (11) 10(A) , No pain 16:16:39 76 24 90 29.1 137/64(108) NSR 0 (11) 10(A) , No pain 16:20:49 73 18 89 33.6 145/75(112) NSR 0 (11) 10(A) , No pain 16:25:07 62 17 88 27.6 135/71(106) NSR 0 (11) 10(A) , No pain Medications Time Medication Route Dose Verified Delivered Reason Notes Effec tiveness by by 16:08:55 Lidocaine 1% added 20ml Doug Camacho used for to vial De La Cruz De La Cruz procedure field MD LOGAN 16:09:08 Heparin Flush added 2 Doug Camacho used for Bag to bags De La Cruz De La Cruz procedure (1000units/500ml field MD LOGAN NS) 16:09:25 Fentanyl I.V. 50 Doug Whitaker for back mcg De La Cruz Dawit PERSAUD pain MD Procedure Log Time Note 15:18:46 Patient Height : 70 inches 15:18:50 Patient Weight : 235 lbs 15:25:38 Use device set IR Diagnostic 15:26:17 PERCUTANEOUS ENTRY 19GA needle opened to sterile field. 15:26:18 TUBING Contrast Injection High Pressure ([id number]) opened to sterile field. 15:26:19 SHEATH 5FR [place] ([id number]) opened to sterile field. 15:26:20 Tegaderm 4 x 4 (1626W) opened to sterile field. 15:26:21 Sterile Angiographic Pack opened to sterile field. 15:26:22 Bag Decanter (2002S) opened to sterile field. 15:26:22 ACIST Manifold (89131) opened to sterile field. 15:26:23 ACIST Hand Control (95933) opened to sterile field. 15:26:24 ACIST Syringe (73973) opened to sterile field. 15:43:34 Time tracking: Regular hours (M-F 7:00 - 5:00) 15:43:56 Plan of Care:Hemodynamics will remain stable., Cardiac rhythm will remain stable., Comfort level will be maintained., Respiratory function will remain adequate., Patient/ family verbilizes understanding of procedure., Procedure tolerated without complication., Recovers from procedure without complications.. 15:44:04 Patient received from [employer] to IR Alert and oriented. Tansferred to table in Supine position. 15:44:11 Signed procedure consent form obtained from patient. 15:44:26 H&P Date Dictated: 09/23/2018 Within 30 days and on chart.. 15:44:30 Pre-procedure instructions explained to patient. 15:44:31 Pre-op teaching completed and patient verbalized understanding. 15:44:33 Family in waiting room. 15:44:38 Patient NPO since Lunch. 15:44:56 Patient allergic to No known allergies 15:45:14 Is the patient allergic to Iodine/contrast media? No. 15:45:19 Is patient on blood thinner?Yes 15:45:25 ACC The patient was administered the following blood thiners within the last 24 hours: ACCLovenox 15:45:29 Patient diabetic? Yes. 15:45:31 If diabetic: On Metformin? No 15:45:33 - 15:45:36 ----Pre-sedation anethsthesia assessment.---- 15:45:39 Previous problem with sedation/anesthesia? No ? 15:45:41 Snore? Yes 15:45:44 Sleep apnea? No 15:45:47 Deviated septum? No 15:45:49 Opens mouth fully? Yes 15:45:51 Sticks out tongue? Yes 15:46:05 Airway obstruction? Yes ? 15:46:31 Dentures? No ? 15:46:39 IV patent on arrival in left forearm with D5/.45%NaCl at [facility]. 15:46:50 Right groin area was prepped with chlora-prep and draped in sterile fashion 15:46:53 - 15:54:07 Vital chart was started 15:59:00 - 15:59:04 ECG and BP/O2 sat monitors applied to patient. 15:59:06 Baseline sample Acquired. 15:59:07 Full Disclosure recording started 15:59:09 - 15:59:25 - 16:05:27 A [employer] ULTRA BOLUS FLUSH 5Fr 65CM catheter ([id number]) was advanced over the wire and used for . 16:06:32 --------ALL STOP TIME OUT------ 16:06:33 Final Timeout: patient, procedure, and site verified with staff and physician. All members of the team are in agreement. 16:07:30 Procedure started. 16:08:55 Lidocaine 1% 20ml vial added to field was administered by Doug De La Cruz MD; used for procedure; 16:09:08 Heparin Flush Bag (1000units/500ml NS) 2 bags added to field was administered by Doug De La Cruz MD; used for procedure; 16:09:25 Fentanyl 50 mcg I.V. was administered by Julianne Pastor RN; for back pain; 16:09:54 FILTER Tech LP Vena Cava ([id number]) opened to sterile field. 16:15:20 A [employer] CHG-B 5FR 65CM catheter ([id number]) was advanced over the wire and used for . 16:16:37 Venogram performed 16:19:37 Vena Tech LP IVC filter was placed below renal veins. 16:20:11 Procedure ended.(Physican Out) 16:21:30 Fluoroscopy time 01.10 minutes. 16:21:36 Fluoroscopy dose: 412 mGy 16:21:36 Flurop Dose total: 412 16:22:06 Procedure and supply charges have been captured, reviewed, submitted an d are correct. 16:22:51 Report given to [employer]. 16:26:11 Vital chart was stopped Device Usage Item Name Manufacture Quantity Catalog Number Hospital Part Current [facility] Lot# / Charge Number Stock Stock Serial# Code PERCUTANEOUS Cook Medical 1 [id number] 105587 [id number] 5 [id number] ENTRY 19GA needle TUBING Sky 1 [id number] 993304 570755 383007 5 Contrast Medical Injection High Pressure ([id number]) SHEATH 5FR Terumo 1 [id number] 058360 038099 030249 5 [place] (VCA678) Tegaderm 4 x 4 3M 1 1626W 649498 470892 508510 5 (1626W) Sterile Cardinal 1 [id number] 493724 050340 5 Angiographic Health Pack Bag Decanter Microtek 1 2001S 172001 35122 084627 5 (2001S) Medical Inc. ACIST Manifold Acist 1 88172 248438 341178 792111 5 (39675) Medical Systems Inc ACIST Hand Acist 1 07160 853938 879303 037064 5 Control Medical (94779) Systems Inc ACIST Syringe Acist 1 22496 204009 025040 566391 20 (50944) Medical Systems Inc Merit ULTRA Merit 1 [id number] 509326 628826 5 BOLUS FLUSH Medical 5Fr 65CM catheter ([id number]) FILTER Tech LP B. Sandoval 1 [id number] 992370 691331 988666 5 Vena Cava (0911770) Cook CHG-B 5FR Deline[employer] Medical 1 [id number] 496822 948280 005094 5 65CM catheter (U52199) Signature Audit [facility] Stage Time Signature Unsigned Intra-Procedure 09/23/2018 Bridget Dwyer 4:26:08 PM RT(R) [facility] [address] [place] [address]
[~2018-09-20 07:25] MED LIST changes: +HYDROCODON-ACE1 EAC7 PO
--- NOTE | 2018-09-20 07:51 | NUR ---
BEDSIDE REPORT HANDED OFF TO [facility], VIA SBAR. EDP AT BEDSIDE AT THIS TIME.
[2018-09-20 08:09] LABS: BASOPHILS 0.1 % (0-2); EOSINOPHILS 0.7 % (0-7); HEMATOCRIT 38.3 % (42.0-54.0); HEMOGLOBIN 12.5 g/dL (13.5-17.5); IMMATURE GRANULOCYTES 0.4 % (0-5); LYMPHOCYTES 7.1 % (15-50); MCH 30.9 pg (26.0-34.0); MCHC 32.6 g/dL (31.0-37.0); MCV 94.8 fL (80.0-100.0); MONOCYTES 4.4 % (2-11); NEUTROPHILS 87.3 % (40-80); PLATELET COUNT 198 10x3/uL (130-400); RBC 4.04 10x6/uL (4.20-6.10); RDW 13.7 % (11.5-14.5); WBC 10.7 10x3/uL (4.8-10.8)
--- NOTE | 2018-09-20 08:10 | NUR ---
INCONT OF LARGE AMT HEMATURIA AND SOFT FORMED STOOL. PT TOTAL CARE WITH ASSIST OF 2 NURSES. CLEASNSED AND REPOSITIONED
[2018-09-20 08:16] LABS: APTT 44.7 SECONDS (22.8-39.4); INR 1.63 (0.85-1.17); PROTIME 18.7 SECONDS (11.6-15.0)
[2018-09-20 08:25] LABS: ALBUMIN 2.2 g/dL (3.4-5.0); ANION GAP 9.5 mmol/L (8-16); BILIRUBIN - TOTAL 0.4 mg/dL (0.2-1.3); CALCIUM 8.8 mg/dL (8.5-10.1); CARBON DIOXIDE 28.7 mmol/L (21.0-32.0); CREATININE - SERUM 1.6 mg/dL (0.6-1.3); POTASSIUM - SERUM 4.2 mmol/L (3.5-5.1); PROTEIN - SERUM 5.8 g/dL (6.4-8.2)
[2018-09-20 08:48] LABS: APPEARANCE TURBID (CLEAR); COLOR RED (YELLOW); SPECIFIC GRAVITY 1.015 (1.005-1.020)
[2018-09-20 08:49] LABS: BACTERIA FEW /hpf (NONE SEEN); BILIRUBIN NEGATIVE (NEGATIVE); EPITHELIAL CELLS OCC /hpf (0-5); GLUCOSE 100 mg/dL (NEGATIVE); KETONE NEGATIVE (NEGATIVE); MUCUS <1+ /lpf (NONE SEEN); NITRITE NEGATIVE (NEGATIVE); PROTEIN 2+ mg/dL (NEGATIVE); RED CELLS - URINE >50 /hpf (0-5); UROBILINOGEN NORMAL (NORMAL); WHITE CELLS - URINE 0-5 /hpf (0-5)
[2018-09-20 10:01] VITALS: BP 175/96
[2018-09-20 11:16] VITALS: BP 146/78
--- NOTE | 2018-09-20 11:27 | NUR ---
FC EMPTIED OF 2000ML GROSS HEMATURIA,
--- NOTE | 2018-09-20 12:25 | NUR ---
FSBS= 117 MG/DL
--- NOTE | 2018-09-20 12:30 | NUR ---
ATTEMPTED TO CALL REPORT, RN UNAVAILABLE
--- NOTE | 2018-09-20 12:32 | NUR ---
CONTINUE TO IRRIGATE FC WITH COPIOUS AMTS SALINE SLN CLEARED TO PINK TINGED URINE. PT DOMITILA WELL
[2018-09-20 13:00] VITALS: BP 165/71
--- NOTE | 2018-09-20 13:00 | NUR ---
REPORT CALLED TO [facility] BY SBAR FORMAT
--- NOTE | 2018-09-20 13:04 | NUR ---
TRANSPORTED TO ROOM #[id number] STABLE. FC DRAINING PINK TINGED URINE TO BSB.
[2018-09-20 14:55] VITALS: BP 142/82; BMI 35.2
--- NOTE | 2018-09-20 15:00 | NUR ---
NEW PATIENT ADMIT FROM ER VIA STRATCHER AND HOSPITAL PERSONNEL. PATIENT IS ACCOMPANIED BY . PATIENT IS AWAKE, ALERT AND ORIENTED X 4. ASSESSMENT IS COMPLETED. RIGGINS INTACT DRAINING BLODDY URINE. STAT LOCK IN PLACE. PATIENT IS STABLE AND VSS. PATIENT DENIES ANY NEEDS OR PAIN. WILL CONTINUE WITH PLAN OF CARE. SR UP X 2 BED IN LOW POSITION AND CALL LIGHT IN REACH.
[2018-09-20] MEDS ORDERED: CALCIUM 500 +1 EAC3 (15:52)
[2018-09-20] MEDS ORDERED: TRAZODONE HCL150 MG PO (15:58)
[2018-09-20] MEDS ORDERED: XARELTO15 MG PO (15:59)
[2018-09-20] MEDS ORDERED: XARELTO20 MG PO (16:01)
[2018-09-20] MEDS ORDERED: HUMULIN R100 U/ML SC (16:10)
--- NOTE | 2018-09-20 16:16 | NUR ---
PATIENT COMPLAINS OF ABD AND NAUSEA. MEDICATED PER MAR WITH ZOFRAN 4MG IV. WILL CONTINUE TO MONITOR.
[2018-09-20 16:29] VITALS: BP 118/62
[2018-09-20 20:00] VITALS: BP 123/61
--- NOTE | 2018-09-20 20:00 | NUR ---
PATIENT RECEIVED SITTING UP IN BED WATCHING TV. PATIENT ASSESSMENT & VITAL SIGNS DONE. PATIENT RIGGINS HAS RED COLORED URINE. NO C/O PAIN OR DISTRESS AT THIS TIME. BED LOW. BEDSIDE TABLE & CALL LIGHT WITHIN REACH. WILL CONTINUE TO MONITOR.
--- NOTE | 2018-09-20 22:32 | NUR ---
PATIENT GIVEN NORCO 5/325 MG FOR PAIN LEVEL OF 7 TO PERIAREA. BED LOW. CALL LIGHT WITHIN REACH. WILL CONTINUE TO MONITOR.
--- NOTE | 2018-09-21 02:31 | NUR ---
PATIENT EYES CLOSED. RESPIRATIONS 18 & EVEN. BED LOW. CALL LIGHT WITHIN REACH. WILL CONTINUE TO MONITOR.
[2018-09-21 04:00] VITALS: BP 126/60
--- NOTE | 2018-09-21 04:36 | NUR ---
I have reviewed this patient and I concur with the Shift Assessment completed by the Licensed Practical Nurse today this shift.
--- NOTE | 2018-09-21 07:21 | NUR ---
PT AWAKE AND ORIENTED, LYING IN BED. QUESTIONS ABOUT MEDICATIONS ANSWERED TO THE BEST OF MY ABILITY. NO COMPLAINTS/CONCERNS VOICED AT THIS TIME. PT SHOWS NO SIGNS/SYMPTOMS OF DISTRESS. BREATHS EVEN/REGULAR/UNLABORED. CL IN REACH, SRX2.
[2018-09-21 08:33] VITALS: BP 120/64
--- NOTE | 2018-09-21 10:19 | NUR ---
I have reviewed this patient and I concur with the Shift Assessment completed by the Licensed Practical Nurse today this shift.
[2018-09-21 12:16] VITALS: BP 128/68
[2018-09-21 15:45] VITALS: BP 112/57
--- NOTE | 2018-09-21 19:54 | NUR ---
PT LAYING IN BED ALERT AND ORIENTED X4. RR EVEN AND UNLABORED. PT DENIES ANY PAIN OR NEEDS AT THIS TIME. BED LOW CALL LIGHT WITHIN REACH WILL CONTINUE TO MONITOR.
[2018-09-21 20:22] VITALS: BP 110/56
--- NOTE | 2018-09-21 22:02 | HP ---
PATIENT: CHRISTIAN GRAF MEDICAL RECORD: [id number] ACCOUNT: [id number] LOCATION:[facility] D.2108 : 33 ADMISSION DATE: 09/20/18 PCP: ROSEANNE BALDERAS MD HISTORY AND PHYSICAL EXAMINATION DATE OF ADMISSION: 09/20/2018. CHIEF COMPLAINT: Hematuria. HISTORY OF PRESENT ILLNESS: This is an 83-year-old white male who was admitted into this hospital a little over a month ago after a syncopal episode. He fell backwards. He was seen by cardiology and they recommended outpatient telemetry and adjusted his meds some. He also suffered an L5 transverse process fracture. He was seen by neurosurgery. No brace was recommended. No surgery recommended. It was recommended he go to rehab. He was discharged to rehab and was not able to continue therapy here and he was discharged from rehab to [facility] where he has been for the last couple of weeks. He started to get around a little bit better. He had some swelling to his left lower extremity and had a venous Doppler ultrasound there at [facility] on 09/17/2018. It came back as positive for DVT, left common femoral vein down to the infrapopliteal vein. The patient was started on Xarelto 15 mg twice a day home. On 09/20/2018, the patient woke up that morning and noticed blood in his urine. He was brought to the Emergency Department where his vital signs were stable. His creatinine was a little elevated at 1.6, which is about normal for him. His INR was 1.6. CBC was fine at 10.7, hemoglobin was 12.5. A cath urine showed red turbid urine with 2+ protein, 2+ blood, trace leukocyte esterase, greater than 50 red blood cells, 0-5 white blood cells, occasional epithelial cells, few bacteria were noted. Urine culture is ordered and he was admitted for further evaluation. Also, it should be noted that the patient has been having a cough now for the last 2-3 weeks. PAST MEDICAL AND SURGICAL HISTORY: Osteoarthritis, obesity, diabetes, hypertension, peripheral neuropathy, remote history of myasthenia gravis. He has had elevated PSA in the past. He has had cardiac arrhythmia, followed by Dr. Greenfield, and on 09/17/2018, was diagnosed with left lower extremity DVT. PAST SURGICAL HISTORY: Cholecystectomy. DRUG ALLERGIES: None. CURRENT MEDICATIONS: Actos 30 mg a day, glipizide 10 mg a day, Zocor or simvastatin 20 mg a day, amitriptyline 25 mg at bedtime, metoprolol tartrate 50 mg once a day, and just started on Xarelto 15 mg twice a day a couple of days ago. HABITS: He never smoked. No alcohol or drugs. SOCIAL HISTORY: He is . He is partially retired. 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 FAMILY HISTORY: Father at 83 of renal cell cancer. Mother at 89 of pneumonia. REVIEW OF SYSTEMS: GENERAL: No major weight changes. HISTORY AND PHYSICAL [id number] CHRISTIAN GRAF HEENT: No particular sinus or allergy problems. RESPIRATORY: No history of asthma or emphysema. He has had this cough for the last 2-3 weeks. CARDIAC: Has history of arrhythmias, followed by Dr. Greenfield. GASTROINTESTINAL: Occasional heartburn, but nothing significant. GENITOURINARY: She had elevated PSA. MUSCULOSKELETAL: He has arthritic aches and pains. ENDOCRINE: He has diabetes and peripheral neuropathy. NEUROLOGIC: No seizures. He has a remote history of myasthenia gravis diagnosis, but is not having any problems with it. PSYCHIATRIC: Denies depression or melancholia. PHYSICAL EXAMINATION: VITAL SIGNS: Temperature 97.9, pulse 66, respirations 20, blood pressure 118/62, O2 sat 94%. GENERAL: He is an obese white male in no acute distress, awake, and alert. SKIN: Warm and dry. HEENT: Grossly within normal limits. NECK: Supple. HEART: Regular rate and rhythm without murmur. LUNGS: Clear. ABDOMEN: Obese, soft, nontender. BACK: He has some generalized tenderness in the lower lumbar area in the midline where he has had subacute L5 transverse process fracture. EXTREMITIES: He has generalized swelling throughout the left lower extremity consistent with a recent diagnosis of DVT. LABORATORY DATA: CBC with a white count of 10,700, hemoglobin 12.5, hematocrit 38.3, platelets number 198,000. INR elevated at 1.63. Basic metabolic panel is all okay except BUN 39, creatinine 1.6, and glucose is 127. Liver enzymes were all normal. Albumin low at 2.2. Urinalysis red, turbid, 2+ protein, 2+ blood, trace leukocyte esterase, greater than 50 red blood cells, 0-5 white blood cells, occasional epithelial cells, few bacteria. ASSESSMENT: 1. Hematuria, which could be due to urinary tract infection could also be due to recent start of blood thinner for DVT. 2. Left lower extremity deep venous thrombosis, diagnosed on 09/17/2018 at [facility]. 3. Cough. 4. Diabetes. PLAN: Urine culture has been ordered. He started on antibiotics. We will change to Lovenox. We will get a CT of the chest with PE protocol and monitor sugar. Other tests or procedures as warranted. TRANSINT:[id number] Voice Confirmation ID: [id number] DOCUMENT ID: [id number] HISTORY AND PHYSICAL [id number] CHRISTIAN GRAF WILLIAM MD at 2202 CC: [id number] DICTATION DATE: 09/21/18 1459 HEAVY LINE TECHNICIAN: 09/21/18 1813 ADM IN [facility] [address] [id number]
[2018-09-21 23:57] VITALS: BP 113/55
--- NOTE | 2018-09-22 02:35 | NUR ---
PT RESTING COMFORTABLY IN BED RR EVEN AND UNLABORED. NO S/S OF DISTRESS AT THIS TIME. BED LOW CALL LIGHT WITHIN REACH. WILL CONTINUE TO MONITOR.
--- NOTE | 2018-09-22 03:16 | NUR ---
I have reviewed this patient and I concur with the Shift Assessment completed by the Licensed Practical Nurse today this shift.
--- NOTE | 2018-09-22 04:43 | NUR ---
PT COMPLAINS OF PAIN IN LLE. PRN PAIN MEDICATION GIVEN. RR EVEN AND UNLABORED. VITALS STABLE. WILL CONTINUE TO MONITOR.
[2018-09-22 05:04] LABS: BASOPHILS 0.3 % (0-2); EOSINOPHILS 5.3 % (0-7); HEMATOCRIT 35.3 % (42.0-54.0); HEMOGLOBIN 11.4 g/dL (13.5-17.5); IMMATURE GRANULOCYTES 0.5 % (0-5); LYMPHOCYTES 11.9 % (15-50); MCH 30.5 pg (26.0-34.0); MCHC 32.3 g/dL (31.0-37.0); MCV 94.4 fL (80.0-100.0); MONOCYTES 5.5 % (2-11); NEUTROPHILS 76.5 % (40-80); PLATELET COUNT 176 10x3/uL (130-400); RBC 3.74 10x6/uL (4.20-6.10); RDW 14.1 % (11.5-14.5)
[2018-09-22 05:06] LABS: WBC 7.4 10x3/uL (4.8-10.8)
[2018-09-22 05:27] LABS: ALBUMIN 1.9 g/dL (3.4-5.0); ANION GAP 11.7 mmol/L (8-16); BILIRUBIN - TOTAL 0.31 mg/dL (0.2-1.3); CALCIUM 8.2 mg/dL (8.5-10.1); CARBON DIOXIDE 26.4 mmol/L (21.0-32.0); POTASSIUM - SERUM 4.1 mmol/L (3.5-5.1); PROTEIN - SERUM 5.2 g/dL (6.4-8.2)
[2018-09-22 05:33] LABS: CREATININE - SERUM 1.1 mg/dL (0.6-1.3)
[2018-09-22 05:38] VITALS: BP 134/53
--- NOTE | 2018-09-22 06:14 | NUR ---
PT HAS HAD FREQUENT COUGH ALL NIGHT THAT IS PRODUCTIVE. WILL PASS ON TO ONCOMING SHIFT. WILL CONTINUE TO MONITOR.
--- NOTE | 2018-09-22 07:25 | NUR ---
PT AWAKE AND ORIENTED LYINGI N BED, PT IS CLEAN/DRY AT THIS TIME. STATES HE SLEPT WELL ALST NIGHT AND HAS NO COMPLAINTS THI SMORNING. HIS BACK IS A LITTLE SORE BUT HE UNDERSTANDS THATS TO BE EXPECTED. NO QUESTIONS/CONCERNS/COMMENTS THIS A.M. CL IN REACH, SRX2. CL IN WORKING ORDER
[2018-09-22 08:31] VITALS: BP 110/56
--- NOTE | 2018-09-22 10:38 | NUR ---
I have reviewed this patient and I concur with the Shift Assessment completed by the Licensed Practical Nurse today this shift.
[2018-09-22 12:06] VITALS: BP 115/59
[2018-09-22 15:04] VITALS: BP 106/56
[2018-09-22 20:00] VITALS: BP 117/49
--- NOTE | 2018-09-22 20:00 | NUR ---
PT RESTING IN BED ALERT AND ORIENTED X4. PT HAS A FREQUENT PRODUCTIVE COUGH. LLL SOUNDS DEMINISHED. PT RR EVEN AND UNLABORED. NO FURTHER COMPLAINTS OF PAIN OR NEEDS AT THIS TIME. BED LOW CALL LIGHT WITHIN REACH. WILL CONTINUE TO MONITOR.
--- NOTE | 2018-09-22 23:15 | NUR ---
ROUNDING IN PT'S ROOM PT WAS AWAKE AND CONFUSED. PT DID NOT KNOW WHERE HE WAS, TIME,DATE,OR SITUATION. PT KNEW HIS NAME. EYES PERRLA, DIRECTOR OF RETAIL EQUAL, TONGUE MIDLINE. VITALS ARE STABLE. BP-122/56 P-70 RR-16 T-98.3 O2-97% ROOM AIR. PT CALLED AND I SPOKE WITH HER ON THE PHONE, STATES THAT PT OFTEN GETS CONFUSED AT NIGHT THAT THIS BEHAVIOR WAS NORMAL FOR PT. PT CALMED DOWN ONCE HE SPOKE TO HIS . BED LOW CALL LIGHT WITHIN REACH WILL CONTINUE TO MONITOR.
[2018-09-23] VITALS (7 sets, daily range): BP systolic 118–153; BP diastolic 48–76
--- NOTE | 2018-09-23 00:50 | NUR ---
PT RESTING WITH EYES CLOSED RR EVEN AND UNLABORED. NO S/S OF DISTRESS. BED LOW CALL LIGHT WITHIN REACH. WILL CONTINUE TO MONITOR.
--- NOTE | 2018-09-23 03:22 | NUR ---
PT ALERT AND ORIENTED X4. RR EVEN AND UNLABORED. PT COMPLAINS OF 9/10 PAIN IN LLE. REPOSITIONED AND ELEVATED PT'S LEG. PRN PAIN MEDICATION GIVEN. PT VITALS STABLE NO S/S OF DISTRESS. BED LOW CALL LIGHT WITHIN REACH. WILL CONTINUE TO MONITOR.
--- NOTE | 2018-09-23 03:54 | NUR ---
I have reviewed this patient and I concur with the Shift Assessment completed by the Licensed Practical Nurse today this shift.
[2018-09-23 05:40] LABS: BASOPHILS 0.4 % (0-2); EOSINOPHILS 4.3 % (0-7); HEMATOCRIT 32.1 % (42.0-54.0); HEMOGLOBIN 10.7 g/dL (13.5-17.5); LYMPHOCYTES 10.7 % (15-50); MCH 31.2 pg (26.0-34.0); MCHC 33.3 g/dL (31.0-37.0); MCV 93.6 fL (80.0-100.0); MEAN PLATELET VOLUME 10.4 fL (7.4-10.4); MONOCYTES 6.4 % (2-11); NEUTROPHILS 77.2 % (40-80); PLATELET COUNT 181 10x3/uL (130-400); RBC 3.43 10x6/uL (4.20-6.10); RDW 13.9 % (11.5-14.5)
--- NOTE | 2018-09-23 06:02 | NUR ---
PT PUT OUT 600ML OF BRIGHT RED AND DARK BLOOD IN RIGGINS. PT IS CURRENTLY RESTING WITH EYES CLOSED RR EVEN AND UNLABORED. NO S/S OF DISTRESS. BED LOW CALL LIGHT WITHIN REACH WILL CONTINUE TO MONITOR.
[2018-09-23 06:23] LABS: ALBUMIN 1.8 g/dL (3.4-5.0); BILIRUBIN - TOTAL 0.21 mg/dL (0.2-1.3); CARBON DIOXIDE 25.9 mmol/L (21.0-32.0); CREATININE - SERUM 1.1 mg/dL (0.6-1.3); POTASSIUM - SERUM 3.9 mmol/L (3.5-5.1)
--- NOTE | 2018-09-23 07:37 | NUR ---
PT AWAKE AND ORIENTED LYING IN BED. PT STATES LAST NIGHT HE HAD DIFFICULTY REMEMBERING WHERE HE WAS AND WHAT TIME IT WAS VERY SCARY FOR HIM. NIGHT NURSE ASSISTED HIM IN CALLING HIS TO HELP REASURE AND CALM HIM DOWN. THIS MORNING HE HAS NO CONFUSION. PT IS A/OX4. NO OTHER COMPLAINTS/CONCERNS AT THIS TIME, CALL LIGHT IN REACH.
--- NOTE | 2018-09-23 10:16 | NUR ---
PT UP IN CHIAR BESIDE BED, CURRENTLY SITTING UNRECLINED, TOLD TO RECLINE ON REQUEST FROM PHYSICAL THERAPY, BUT TO LET HIM SIT UP THROUGH LUNCH AND LONG HE CAN TOLERATE.
--- NOTE | 2018-09-23 12:50 | NUR ---
I have reviewed this patient and I concur with the Shift Assessment completed by the Licensed Practical Nurse today this shift.
--- NOTE | 2018-09-23 14:39 | NUR ---
PT STARTED HAVING BLOOD AROUND HIS PENIS FROM THE CATHETER. SPOKE TO PROCESSING ASSOCIATE NURSE FRANCISCO JAVIER ABOUT IT AND SHE ASSISTED ME IN IRRIGATING THE CATHETER PER STERILE NURSING PROTOCOL. THERE IS LESS BLEEDING NOW, AND THE FLOW OF THE CATHETER IS BETTER. NEW STAT LOCK PLACED AND EVAN AREA CLEANED.
[2018-09-23 15:14] LABS: INR 1.23 (0.85-1.17); PROTIME 14.9 SECONDS (11.6-15.0)
[2018-09-23 15:15] LABS: APTT 41.9 SECONDS (22.8-39.4)
--- NOTE | 2018-09-23 15:40 | NUR ---
PT TAKEN TO HAVE FILTER PLACED.
--- NOTE | 2018-09-23 19:10 | NUR ---
awake and alert bed is low and locked and srx2 and call light in reach pt is orientated x4 skin is warm and dry. lcta becoming slightly deminished in lower bases and hernia noted near umbilicus LLE is edemitus and pitted puilses detcted hansen noted with bloody drainage reported to me as normal at this time.
--- NOTE | 2018-09-23 21:20 | NUR ---
UNABLE MTO GIVE PO MEDS PT CLINCHED MOUTH SHUT AND SPIT MULTIPLE TIMES SAYING YEA ILL DO IT OVER AND OVER....THEN SHOUTED NO GIVE THEM TO THE OTHER FELLOW. PT IS NOW TOTALLY DISORIENTED. IT WAS REPORTRD THAT PT GETS CONFUSED AT NIGHT VS WNL SKIN WARM AND DRY
[2018-09-24] VITALS (7 sets, daily range): BP systolic 91–176; BP diastolic 50–67
--- NOTE | 2018-09-24 01:01 | NUR ---
CONTINUES TO BE AWAKE AND CONFUSED PT IS ANGRY THAT I WILL NOT GET HIS SPECAIL PANTS READY FOR SURGERY PT IS UNAWARE OF TIME ...ABLE TO REDIRECT BRIEFLY. SR X2 AND BED LOW AND LOCKED
--- NOTE | 2018-09-24 01:43 | NUR ---
PT IS NOW DENING HE HAS SURGERY SCHEDUALED. STATING HE IS NOT IN THE HOSPITAL.
--- NOTE | 2018-09-24 04:11 | NUR ---
CO HEADACHE AND NARCO GIVEN PT IS UPSET BECAUSE HE "CANT GET UNDER THAT TRUCK"
--- NOTE | 2018-09-24 04:20 | NUR ---
I have reviewed this patient and I concur with the Shift Assessment completed by the Licensed Practical Nurse today this shift.
[2018-09-24 06:06] LABS: BASOPHILS 0.3 % (0-2); EOSINOPHILS 3.4 % (0-7); HEMATOCRIT 33.4 % (42.0-54.0); IMMATURE GRANULOCYTES 1.5 % (0-5); LYMPHOCYTES 9.9 % (15-50); MCH 30.9 pg (26.0-34.0); MCHC 32.9 g/dL (31.0-37.0); MCV 93.8 fL (80.0-100.0); MEAN PLATELET VOLUME 10.3 fL (7.4-10.4); MONOCYTES 7.5 % (2-11); NEUTROPHILS 77.4 % (40-80); PLATELET COUNT 207 10x3/uL (130-400); RBC 3.56 10x6/uL (4.20-6.10); RDW 13.9 % (11.5-14.5); WBC 6.2 10x3/uL (4.8-10.8)
[2018-09-24 06:42] LABS: ALKALINE PHOSPHATASE 47 U/L (46-116); ALT (SGPT) 26 U/L (10-68); BILIRUBIN - TOTAL 0.28 mg/dL (0.2-1.3); CALC OSMOLALITY 278 mosm/kg (275-300); CARBON DIOXIDE 27.7 mmol/L (21.0-32.0); CHLORIDE - SERUM 102 mmol/L (98-107); POTASSIUM - SERUM 3.9 mmol/L (3.5-5.1); PROTEIN - SERUM 5.3 g/dL (6.4-8.2); SODIUM 137 mmol/L (136-145); UREA NITROGEN 24 mg/dL (7-18); eGFR NON AFRICAN AMERICAN 75 mL/min (90-120)
[2018-09-24 06:44] LABS: GLUCOSE 122 mg/dL (74-106)
--- NOTE | 2018-09-24 07:53 | NUR ---
SIGNS CONSENTS FOR CYSTOSCOPY. WILL CONT. PLAN OF CARE.
--- NOTE | 2018-09-24 10:48 | NUR ---
EKG COMPLETED AND ON CHART.
--- NOTE | 2018-09-24 14:27 | NUR ---
UP SOB WITH PT ASSIST. PT ASSISTS WITH LINEN CHANGE. RIGGINS FLUSHED WITH 60CC NS. WILL CONT./ PLAN OF CARE.
[2018-09-24 17:08] LABS: FOLATE (FOLIC ACID) - SERUM 9.4 ng/mL (>3.0)
--- NOTE | 2018-09-24 18:00 | NUR ---
TO OR BY BED.
--- NOTE | 2018-09-24 19:31 | NUR ---
CONTINUES TO BE IN SURGERY AT THIS TIME
--- NOTE | 2018-09-24 20:15 | NUR ---
RETURNS FROM OR RECOVERY ALERT BUT STILL CONFUSED SKIN IS WARM AND DRY PT DENIES PAIN NO INSISION SITES RIGGINS PRESENT TO GRAVITY DRAINAGE CONTINUES TO BE BLOODY LCTA AND BOWEL SOUNDS X4 PT CO THIRSTY AND HUNGRY AND STARTED WITH SIPS OF WATER ABD SOFT PULSES INTACT AND MARKED IN FEET LEFT LEG CONTINUES TO BE EDEMITUS PITTING IV TO LEFT FA SL AT THIS TIME
--- NOTE | 2018-09-24 20:30 | NUR ---
VS STABLE 146/58 95% RA 77 18 979 AT THIS TIME
--- NOTE | 2018-09-24 21:39 | NUR ---
MONITORING VS Q15 HAVE REMAINED STABLE VS AT THIS TIME 98.2 124/52 95% 98 18
--- NOTE | 2018-09-24 22:27 | NUR ---
VS 97.6 130/62 95% 90 18 - VS HAVE REMAINED STABLE PT IS RESTING WITH NO CO OF PAIN
[2018-09-25] VITALS: BP 132/58
--- NOTE | 2018-09-25 02:33 | NUR ---
I have reviewed this patient and I concur with the Shift Assessment completed by the Licensed Practical Nurse today this shift.
[2018-09-25 04:00] VITALS: BP 133/64
[2018-09-25 06:39] LABS: BASOPHILS 0.7 % (0-2); EOSINOPHILS 2.6 % (0-7); HEMATOCRIT 31.7 % (42.0-54.0); HEMOGLOBIN 10.3 g/dL (13.5-17.5); IMMATURE GRANULOCYTES 1.7 % (0-5); LYMPHOCYTES 10.2 % (15-50); MCH 30.9 pg (26.0-34.0); MCHC 32.5 g/dL (31.0-37.0); MCV 95.2 fL (80.0-100.0); MEAN PLATELET VOLUME 10.2 fL (7.4-10.4); MONOCYTES 9.4 % (2-11); NEUTROPHILS 75.4 % (40-80); PLATELET COUNT 180 10x3/uL (130-400); RBC 3.33 10x6/uL (4.20-6.10); RDW 14.2 % (11.5-14.5); WBC 6.1 10x3/uL (4.8-10.8)
[2018-09-25 07:13] LABS: ANION GAP 10.9 mmol/L (8-16); BILIRUBIN - TOTAL 0.21 mg/dL (0.2-1.3); CALCIUM 8.3 mg/dL (8.5-10.1); CREATININE - SERUM 1.1 mg/dL (0.6-1.3); POTASSIUM - SERUM 3.9 mmol/L (3.5-5.1); PROTEIN - SERUM 5.3 g/dL (6.4-8.2)
--- NOTE | 2018-09-25 07:47 | OP ---
PATIENT NAME: CHRISTIAN GRAF MEDICAL RECORD: [id number] :31 LOCATION:D. D.2108 ADMISSION DATE:09/20/18 SURGEON: SYLVESTER SCHAEFER MD DATE OF OPERATION: 09/24/2018 SURGEON: Sylvester Schaefer MD ANESTHESIA: General anesthesia by Gurdeep Adrian CRNA. PREOPERATIVE DIAGNOSES: Gross hematuria, obstructive BPH, bladder stone. PROCEDURE: Cystoscopy, bladder clot evacuation, bladder stone removal SPECIMEN: Bladder stone. FINDINGS: Obstructive prostate with bilateral lateral lobe hyperplasia and a tall bladder neck. No significant median lobe. Prostatic bleeding is seen. Blood clots were seen in the bladder. There is a 1.5 cm long bladder stone seen. The bladder was heavily trabeculated with cellules. No bladder tumors were seen. ESTIMATED BLOOD LOSS: None. CLINICAL HISTORY: This is an 83-year-old male who has recurrent deep venous thrombosis and a previous history of pulmonary embolism. When he was diagnosed with deep venous thrombosis, he was started on Xarelto and immediately developed gross hematuria. He had an IVC filter placed yesterday. He comes today for cystoscopy and bladder clot evacuation to determine the cause of the gross hematuria. I also sent him for a CT scan of the abdomen and pelvis, which showed no renal stones and no renal tumors. There are some renal cysts. Significantly, the CT scan did not identify a stone in the bladder. He is not allergic to Ancef. He was given Ancef financial operations clerk to the OR. DESCRIPTION OF PROCEDURE: The patient was given induction of general anesthesia. He was then placed into lithotomy position. His indwelling Head catheter was removed. He was then prepped and draped. Cystoscopy was performed using a 21-Bermudian cystoscope with 30-degree lens. Blood clots were seen in the prostatic urethra and in the bladder. The Yun Yun evacuator was used to remove all of the blood clots. It then became quite evident that there was a large bladder stone sitting in the bladder. A 4-wire basket was placed around the stone and the stone was entirely removed. Further cystoscopy revealed no bladder tumors. The bladder is heavily trabeculated suggestive of bladder outlet obstruction. A Sensor wire was put into the bladder. A 16-Bermudian [place] tip Head catheter was then inserted over the wire into the bladder. The balloon was inflated with 10 cc of sterile water. The catheter was then put to bag drainage. The patient was awakened and brought back to the recovery room. TRANSINT:[id number] Voice Confirmation ID: [id number] DOCUMENT ID: [id number] OPERATIVE REPORT [id number] CHRISTIAN GRAF ROBERT S MD at 0747 CC: [id number] DICTATION DATE: 09/24/181942 SHELL TRIM TOOL SETTER: 09/24/181955 ADM IN [id number] [place] [id number]
[2018-09-25 09:23] VITALS: BP 135/58
--- NOTE | 2018-09-25 10:31 | NUR ---
PT AT BS. CONFUSION NOTED. RESP UL ON 02 2L NC. RIGGINS INTACT WITH BLOOD TINGED OP NOTED. CALL LIGHT IN REACH. WILL MONITOR NEEDS.
[2018-09-25 13:18] VITALS: BP 103/56
[2018-09-25 14:52] VITALS: Ht 177.8 cm; Wt 107.7 kg
[2018-09-25 18:58] VITALS: BP 108/44
--- NOTE | 2018-09-25 19:33 | NUR ---
ROUNDS COMPLETED VSS, AAOX3, WITH OCCASIONAL INAPPROPRIATE WORDS.BILAT ANTERIOR JOYNER APPEARS REDDENED, AND EDEMATOUS. RIGGINS DRAINING AND INTACT, URINE APPEARS BLODDY. ABD APPEARS DISTENDED. 02 @ 2L. NO S/S OF RESP DISTRESS. PT DENIES ANY FURTHER NEEDS AT THIS TIME. WILL CPOC. CL WITHIN REACH, BED IN LOW, SR UP X2.
[2018-09-25 20:00] VITALS: BP 123/54
[2018-09-26] VITALS (7 sets, daily range): BP systolic 121–153; BP diastolic 56–76
[2018-09-26 05:38] LABS: BASOPHILS 0.2 % (0-2); EOSINOPHILS 4.4 % (0-7); HEMATOCRIT 30.8 % (42.0-54.0); HEMOGLOBIN 10.1 g/dL (13.5-17.5); IMMATURE GRANULOCYTES 1.7 % (0-5); LYMPHOCYTES 11.8 % (15-50); MCH 30.9 pg (26.0-34.0); MCHC 32.8 g/dL (31.0-37.0); MCV 94.2 fL (80.0-100.0); MEAN PLATELET VOLUME 9.8 fL (7.4-10.4); NEUTROPHILS 71.9 % (40-80); PLATELET COUNT 178 10x3/uL (130-400); RBC 3.27 10x6/uL (4.20-6.10); RDW 14.1 % (11.5-14.5); WBC 5.9 10x3/uL (4.8-10.8)
[2018-09-26 05:49] LABS: ALBUMIN 1.9 g/dL (3.4-5.0); ANION GAP 7.4 mmol/L (8-16); BILIRUBIN - TOTAL 0.25 mg/dL (0.2-1.3); CALCIUM 8.1 mg/dL (8.5-10.1); CARBON DIOXIDE 29.6 mmol/L (21.0-32.0); CREATININE - SERUM 1.1 mg/dL (0.6-1.3); PROTEIN - SERUM 5.1 g/dL (6.4-8.2)
--- NOTE | 2018-09-26 15:48 | NUR ---
OT NOTE: PT COMPLETED BED MOB WITH LEXII Moran. PT COMPLETED BUE AROM EXS. THANK YOU, PETER DOS SANTOS
[2018-09-26 19:08] LABS: FACTOR II DNA ANALYSIS Negative (())
[2018-09-27 04:03] VITALS: BP 146/56
--- NOTE | 2018-09-27 07:25 | NUR ---
ROUNDING DONE WITH PATIENT SEEN WITH GLASSES ON, ON HEART MONITOR SHOWING SR, HR 98. ON ROOM AIR AT THIS TIME, DOES NOT WANT TO WEAR 2L PER NC ORDERED. LEFT HAND PIV SEEN WITH SALINE LOCK. RIGGINS CATH PATENT WITH BLOODY URINE SEEN. LEFT LOWER LEG SEEN WITH RED, PEELING SKIN (CELLULITITS ?). WILL MONITOR.
[2018-09-27 08:54] VITALS: BP 139/70
--- NOTE | 2018-09-27 10:10 | NUR ---
P.T. HERE TO PLACE PATIENT IN CHAIR.
--- NOTE | 2018-09-27 10:23 | NUR ---
COMPLAINTS OF PAIN 6/10 TO BUTT, NORCO GIVEN. IN CHAIR WITH QUOC MAT ALARM ON. AT [facility].
--- NOTE | 2018-09-27 10:32 | NUR ---
OT NOTE: PT DOING BETTER TODAY. BED MOB WITH MOD/MAX ASSIST; STATIC SITTING WITH GOOD BALANCE TODAY. YESTERDAY, PT UNABLE TO SIT UNSUPPORTED AND WAS LEANING HEAVY TO L SIDE; NO PROBLEMS TODAY. MOD ASSIST WITH SIT TO STAND ; MAX ASSIST WITH WALKER AND GAIT BELT FOR SEVERAL STEPS TO TRANSFER TO CHAIR. UE AROM ACT; SIMPLE GROOMING TASKS. PT REPORTED THAT HE HAD A BED BATH EARLY THIS AM. PT WANTING TO AMBULATE FURTHER, HOWEVER, HE IS NOT BEARING ANY WT THROUGH LLE, THEREFORE, UNABLE TO AMB GREATER THAN A FEW STEPS RAFIQ CRUZ, OTR/L
[2018-09-27 12:12] VITALS: BP 107/56
--- NOTE | 2018-09-27 12:52 | NUR ---
STILL IN CHAIR, I HAVE CALLED ROXY WITH THERAPHY AND HE DOES NOT COME BACK UNTIL 1300.
--- NOTE | 2018-09-27 13:17 | NUR ---
Nutrition Follow Up: Chart reviewed Diet: Regular PO Intake: 62% meal avg BM: 09/24/18 Meds and labs reviewed Rec continue current diet. RD following.
--- NOTE | 2018-09-27 15:06 | NUR ---
OT NOTE: PT COMPLETED SITTING BALANCE WITH MIN A. PT COMPLETED HYGIENE TASKS WITH MIN A. PT COMPLETED RUE LIMITED AROM AXS. PT COMPLETED LUE AROM EXS. THANK YOU, PETER DOS SANTOS
[2018-09-27 16:15] VITALS: BP 129/67
--- NOTE | 2018-09-27 18:06 | NUR ---
NO NEEDS VOICED, ENCOURAGED TO STILL DRINK PLENTY OF FLUIDS. BED ALARM IS ON AND SET.
--- NOTE | 2018-09-27 19:19 | NUR ---
RECIEVED PT FROM [facility]. PT SITTING UP IN BED ALERT AND ORIENTED X3 WITH SOME CONFUSION TO TIME. PT AT BEDSIDE AT THIS TIME. RR EVEN AND UNLABORED. NO S/S OF DISTRESS. BED LOW CALL LIGHT WITHIN REACH. WILL CONTINUE TO MONITOR.
[2018-09-27 20:21] VITALS: BP 111/53
--- NOTE | 2018-09-27 20:28 | NUR ---
REPOSITIONED PT TO RIGHT SIDE. WILL CONTINUE TO MONITOR.
--- NOTE | 2018-09-27 22:03 | NUR ---
PT RESTING IN BED WITH EYES CLOSED. RR EVEN AND UNLABORED. NO S/S OF DISTRESS. BED LOW CALL LIGHT WITHIN REACH. WILL CONTINUE TO MONITOR.
[2018-09-28 00:09] VITALS: BP 118/51
--- NOTE | 2018-09-28 02:15 | NUR ---
I have reviewed this patient and I concur with the Shift Assessment completed by the Licensed Practical Nurse today this shift.
--- NOTE | 2018-09-28 02:54 | NUR ---
PT RESTING IN BED WITH EYES CLOSED. RR EVEN AND UNLABORED. NO S/S OF DISTRESS. BED LOW CALL LIGHT WITHIN REACH. WILL CONTINUE TO MONITOR.
[2018-09-28 03:45] VITALS: BP 122/57
[2018-09-28 04:07] LABS: BASOPHILS 0.5 % (0-2); EOSINOPHILS 4.7 % (0-7); HEMATOCRIT 31.6 % (42.0-54.0); HEMOGLOBIN 10.5 g/dL (13.5-17.5); IMMATURE GRANULOCYTES 1.6 % (0-5); MCH 31.4 pg (26.0-34.0); MCHC 33.2 g/dL (31.0-37.0); MCV 94.6 fL (80.0-100.0); MONOCYTES 8.3 % (2-11); NEUTROPHILS 71.9 % (40-80); PLATELET COUNT 161 10x3/uL (130-400); RBC 3.34 10x6/uL (4.20-6.10); RDW 14.4 % (11.5-14.5); WBC 6.4 10x3/uL (4.8-10.8)
[2018-09-28 04:20] LABS: CALC OSMOLALITY 275 mosm/kg (275-300); CALCIUM 8.3 mg/dL (8.5-10.1); CARBON DIOXIDE 28.8 mmol/L (21.0-32.0); CHLORIDE - SERUM 103 mmol/L (98-107); CREATININE - SERUM 0.9 mg/dL (0.6-1.3); GLUCOSE 110 mg/dL (74-106); POTASSIUM - SERUM 3.8 mmol/L (3.5-5.1); SODIUM 136 mmol/L (136-145); UREA NITROGEN 21 mg/dL (7-18); eGFR NON AFRICAN AMERICAN 85 mL/min (90-120)
--- NOTE | 2018-09-28 07:30 | NUR ---
A/A/OX4. DENIES ANY PAIN AT PRESENT TIME AND NO REQUESTS VOICED. RIGGINS PATENT AND DRAINING PINK TO LIGHT WENDI COLORED URINE WITH NO BLOOD NOTED. ASSESSMENT COMPLETED AND WILL CONTINUE POC.
[2018-09-28 08:02] VITALS: BP 146/71
[2018-09-28] MEDS ORDERED: PRADAXA75 MG PO (08:51)
--- NOTE | 2018-09-28 10:30 | NUR ---
CATHETER REMOVED PER ORDER OF DR. BALDERAS. PT TOLERATED WELL. URINAL AT BEDSIDE.
[2018-09-28 11:49] VITALS: BP 136/64
--- NOTE | 2018-09-28 12:32 | NUR ---
I have reviewed this patient and I concur with the Shift Assessment completed by the Licensed Practical Nurse today this shift.
--- NOTE | 2018-09-28 15:55 | NUR ---
[facility] TO TRANSPORT PT TO [facility]. DISCHARGE INSTRUCTIONS REVIEWED WITH PT AND HIS WITH UNDERSTANDING VERBALIZED. REPORT CALLED TO NURSE AT [facility]. ALL PERSONAL BELONGINGS WITH PTS .
--- NOTE | 2018-09-30 09:06 | MORECARE ---
CASE MANAGEMENT DISCHARGE SUMMARY PATIENT: CHRISTIAN GRAF UNIT: [id number] ADM DATE: 09/20/18 AGE: 83 : 33 SEX: M ROOM/BED: D.2108 AUTHOR: ASHELY MARIE PHYSICIAN: REFERRING PHYSICIAN: ROSEANNE BALDERAS MD DATE OF SERVICE: 09/30/18 Discharge Plan Patient Name: CHRISTIAN GRAF Facility: [facility]:[place] : 1935 Planned Disposition: Home Anticipated Discharge Date: 09/28/18 Discharge Date: 09/28/2018 Expected LOS: 8 Initial Reviewer: [email or web address] Initial Review Date: 09/30/2018 Generated: 09/30/18 10:06 am Comments DCP- Discharge Planning Updated by ADALI: Kaylan Templeton on 09/28/18 9:[address] Patient Name: CHRISTIAN GRAF Admission Status: ER Accout number: [id number] Admission Date: 09-20-2018 : 1935 Admission Diagnosis:ACUTE EMBOLISM AND THOMBOS UNSP DEEP VEINS OF L LOW EXT Attending: ROSEANNE BALDERAS Current LOS: 8 Anticipated DC Date: Planned Disposition: Primary Insurance: MEDICARE A & B Discharge Planning Comments: pt lives at [facility] will return to ltc bed, facility states they have no transportation on weekend so pt is to be sent by ambulance Toeing Stockings: Kaylan Templeton Coverage Notice Reviewer: [id number] - Kaylan Templeton Notice Issued Date-Time: 09/28/2018 9:00 Notice Type: IM Discharge Notice Notice Delivered To: Patient Relationship to Patient: Self Section Crews Activities Clerk Name: Delivery Method: HAND - Hand Delivered Kary Days: Prior Verbal Notification: Recipient Understood Notice: Yes Recipient Signature: Yes Med Rec Note Co-signed by Attending: Coverage Notice Comment: Patient Name: CHRISTIAN GRAF Page [phone] at 0906 All edits/amendments must be made on the electronic document DICTATION DATE: 09/30/18905 OPTICAL INSTRUMENT ASSEMBLER: DM 09/30/18905 RPT#: [id number] DC DATE:09/28/18 STATUS: DIS IN [id number] [place] [address] END OF REPORT
== END 2018-09-28 16:04 | DRG 253 ==
LOC: D.ER 07:25 → D.M2 12:15
PROVIDERS: Emergency Medicine; Family Medicine; Internal Medicine Hematology & Oncology; Specialist; Urology; ADMIT Family Medicine; ATTEND Family Medicine
PROC: 06H03DZ Insertion of Intraluminal Device into Inferior Vena Cava, Percutaneous Approach (ICD-10-PCS; 2018-09-23)
PROC: 0TCB8ZZ Extirpation of Matter from Bladder, Via Natural or Artificial Opening Endoscopic (ICD-10-PCS; principal; 2018-09-24 12:00)
DX: I82.402 Acute embolism and thrombosis of unspecified deep veins of left lower extremity (principal); I27.82 Chronic pulmonary embolism; N39.0 Urinary tract infection, site not specified; N13.8 Other obstructive and reflux uropathy; E11.9 Type 2 diabetes mellitus without complications; I10 Essential (primary) hypertension; N40.1 Benign prostatic hyperplasia with lower urinary tract symptoms; N21.0 Calculus in bladder

== ENCOUNTER 2018-11-01 02:29 | Inpatient (IN) | payer MEDICARE, OTHER ==
--- NOTE | 2018-10-31 05:15 | NUR ---
DR. LITTLEJOHN CALLED FROM ER, ORDER REC'D TO PLACE NGT FOR POSSIBLE ILEUS, 16FR NGT PLACED TO RIGHT NARE WITHOUT DIFFICULTY, PLACEMENT VERIFIED VIA SM AIR BOLUS AUSCULTATED OVER EPIGASTRIM, 200 CC DARK BROWN RETURN NOTED FROM NGT.
[~2018-11-01] VITALS: Ht 177.8 cm; Wt 112.2 kg
[2018-11-01] VITALS (24 sets, daily range): BP systolic 93–162; BP diastolic 42–769; BMI 32.0; BMI 31.9
[~2018-11-01 02:29] MED LIST changes: +CALCIUM 500 +1 EAC3; +HUMULIN R100 U/ML SC; +PRADAXA75 MG PO; +TRAZODONE HCL150 MG PO; +XARELTO15 MG PO; +XARELTO20 MG PO
[2018-11-01] MEDS ORDERED: FUROSEMIDE20 MG PO (02:36)
[2018-11-01] MEDS ORDERED: PIOGLITAZONE15 MG PO (02:37)
[2018-11-01] MEDS ORDERED: K-DUR20 MEQ PO (02:37)
[2018-11-01] MEDS ORDERED: TRAZODONE HCL150 MG PO (02:37)
[2018-11-01] MEDS ORDERED: GLUCOTROL 5 MG T5 MG PO (02:37)
[2018-11-01] MEDS ORDERED: PRADAXA75 MG PO (02:38)
[2018-11-01 02:59] LABS: BASOPHILS 0 % (0-2); EOSINOPHILS 0 % (0-7); HEMATOCRIT 35.2 % (42.0-54.0); HEMOGLOBIN 11.7 g/dL (13.5-17.5); IMMATURE GRANULOCYTES 0.5 % (0-5); LYMPHOCYTES 2.7 % (15-50); MCH 31.5 pg (26.0-34.0); MCHC 33.2 g/dL (31.0-37.0); MCV 94.9 fL (80.0-100.0); MEAN PLATELET VOLUME 9.5 fL (7.4-10.4); MONOCYTES 0.6 % (2-11); NEUTROPHILS 96.2 % (40-80); PLATELET COUNT 185 10x3/uL (130-400); RBC 3.71 10x6/uL (4.20-6.10); RDW 14.6 % (11.5-14.5); WBC 10.2 10x3/uL (4.8-10.8)
[2018-11-01 03:03] LABS: APTT 38.4 SECONDS (22.8-39.4); INR 1.37 (0.85-1.17); PROTIME 16.3 SECONDS (11.6-15.0)
[2018-11-01 03:09] LABS: ALBUMIN 2.7 g/dL (3.4-5.0); ALKALINE PHOSPHATASE 73 U/L (46-116); ALT (SGPT) 17 U/L (10-68); BILIRUBIN - TOTAL 1.03 mg/dL (0.2-1.3); CALC OSMOLALITY 280 mosm/kg (275-300); CALCIUM 8.7 mg/dL (8.5-10.1); CARBON DIOXIDE 20.1 mmol/L (21.0-32.0); CHLORIDE - SERUM 98 mmol/L (98-107); CREATININE - SERUM 1.7 mg/dL (0.6-1.3); POTASSIUM - SERUM 4.3 mmol/L (3.5-5.1); PROTEIN - SERUM 6.6 g/dL (6.4-8.2); SODIUM 134 mmol/L (136-145); UREA NITROGEN 25 mg/dL (7-18); eGFR NON AFRICAN AMERICAN 41 mL/min (90-120)
[2018-11-01 03:11] LABS: GLUCOSE 261 mg/dL (74-106)
[2018-11-01 03:19] LABS: CREATINE KINASE 129 UL (21-232); TROPONIN-I 0.047 ng/mL (0.000-0.060)
[2018-11-01 03:33] LABS: APPEARANCE TURBID (CLEAR); COLOR RED (YELLOW); GLUCOSE 1000 mg/dL (NEGATIVE); NITRITE NEGATIVE (NEGATIVE); PROTEIN 2+ mg/dL (NEGATIVE)
[2018-11-01 03:34] LABS: BILIRUBIN NEGATIVE (NEGATIVE); KETONE MODERATE mg/dL (NEGATIVE); RED CELLS - URINE >50 /hpf (0-5); UROBILINOGEN NORMAL (NORMAL)
--- NOTE | 2018-11-01 03:40 | NUR ---
DIFFICULTY INSERTING RIGGINS. SMALL AMOUNT OF URINARY RETURN. PALAPABLE BLADDED. BLADDER SCANNED REVEALED 550 MLS OUTPUT. 3 ATTEMPTS EACH ENDING WITH RIGGINS FILLED WITH BLOOD CLOT. ATTEMPTED TO IRRIGATE RIGGINS WITH 30 ML NS. 0 RETURN. BLOOD CLOTS STILL IN RIGGINS
--- NOTE | 2018-11-01 04:30 | NUR ---
PT REC'D TO ROOM 2312 VIA STRETCHER FROM ER, PT CONFUSED TO TIME, PLACE, AND SITUATION, ACCOMPANIED BY ER STAFF AND , RIGHT A/C PIV WITH CARDIZEM @ 10MG/HR, PT WILL FOLLOW COMMANDS BUT AT TIMES SPEAKS WITH GARBLED SPEECH, RIGHT FOREARM PIV SALINE LOCKED, TEMP 100.9, BP 152/87, ABD DISTENDED BS ABSENT, BILAT TEDS FROM SHELTER REMOVED, LOWER EXT'S DISCOLORED WITH RED / PURPLE DISCOLORATION, SR UP X 2, CALL LIGHT IN REACH, VISIBLE TO NURSES STATION.
--- NOTE | 2018-11-01 05:15 | NUR ---
DR. LITTLEJOHN FROM ER CALLED AND ORDERED NGT PLACED, 16FR NGT PLACED TO LEFT NARE WITHOUT DIFFICULTY, PLACEMENT VERIFIED VIA SM AIR BOLUS AUSCULTATED OVER EPIGASTRIM, NGT PLACED TO LIWS WITH 200CC DARK BROWN RETURN.
--- NOTE | 2018-11-01 05:25 | NUR ---
Seth LOWRY APRN CALLED FOR STATUS UPDATE, NEW ORDERS REC'D AT THIS TIME.
--- NOTE | 2018-11-01 06:30 | NUR ---
AM MEDS GIVEN ORDERED, FSBS 223, 4 UNITS REGULAR INSULIN GIVEN SUBQ TO LEFT ARM, PT RESTING IN BED EYES CLOSED, RESP EVEN AND UNLABORED.
[2018-11-01 08:12] LABS: ANION GAP 18.5 mmol/L (8-16); POTASSIUM - SERUM 3.5 mmol/L (3.5-5.1)
--- NOTE | 2018-11-01 09:19 | NUR ---
0700 ASLEEP, AWAKENS EASILY. ASSESSMENT COMPLETE REMAINS AT BEDSIDE PT CONFUSED DOES FOLLOW COMMANDS HAND SQUEEZES AND FOOT PUSHES PRESENT TO RIGHT SIDE ONLY UNABLE TO PERFORM ON LEFT SIDE. LR AT 125 TO RIGHT FOREARM AND CARDIZEM AT 10ML TO RIGHT AC BOTH SITES SATISFACTORY PT ONLY GARBLES AND DOES NOT ANSWER QUESTIONS APPROPRIATELY
--- NOTE | 2018-11-01 09:23 | NUR ---
0920 NGT PLACEDMENT VERIFIED WITH 10CC AIR BOLUS APAP GIVEN FOR BACK PAIN AND TEMP 100.6
--- NOTE | 2018-11-01 09:23 | NUR ---
0900 REPOSITIONED IN BED TO LEFT SIDE ORAL CARE PROVIDED
--- NOTE | 2018-11-01 14:16 | NUR ---
[address] CHG BATH COMPLETE WITH TOTAL LINEN CHANGE
--- NOTE | 2018-11-01 14:17 | NUR ---
1300 PT BECOMING MORE ALERT SPEAKING COHERENTLY WITH DR BALDERAS. SPEECH IS GARBLED BUT APPROPRIATE ANSWERS NOTED
--- NOTE | 2018-11-01 16:52 | NUR ---
8907 DR SCHAEFER ROUNDING ON PATIENT ORDERS FOR CYSTOSCOPY SCHEDULED FOR [place] 11/02
--- NOTE | 2018-11-01 16:54 | NUR ---
1500 CONSENTS SIGNED BY SPOUSE RESTING QUIETLY
--- NOTE | 2018-11-01 17:06 | NUR ---
1700 OR TEAM AND ANESTHESIA ARRIVED TO ROOM TO TAKE PT TO OR FOR CYSTO AND RIGGINS
--- NOTE | 2018-11-01 18:52 | NUR ---
1745 PT RETURNED FROM OR INITIATED FREQUENT VITAL SIGNS
--- NOTE | 2018-11-01 19:29 | MORECARE ---
CASE MANAGEMENT DISCHARGE SUMMARY PATIENT: CHRISTIAN GRAF UNIT: [id number] ADM DATE: 11/01/18 AGE: 83 : 33 SEX: M ROOM/BED: D.2312 AUTHOR: ASHELY MARIE PHYSICIAN: REFERRING PHYSICIAN: ROSEANNE BALDERAS MD DATE OF SERVICE: 11/01/18 Discharge Plan Patient Name: CHRISTIAN GRAF [facility] [facility] 1935 Planned Disposition: Nursing Home Facility Anticipated Discharge Date: Discharge Date: Expected LOS: Initial Reviewer: [email or web address] Initial Review Date: 11/01/2018 Generated: 11/01/18 8:29 pm Patient Name: CHRISTIAN GRAF Page [id number] at 1928 All edits/amendments must be made on the electronic document DICTATION DATE: 11/01/181928 METAL NEUTRALIZER: SANTY 11/01/181928 RPT#: [id number] DC DATE: STATUS: ADM IN [facility] [address] [place] [address] END OF REPORT
--- NOTE | 2018-11-01 19:42 | MORECARE ---
CASE MANAGEMENT DISCHARGE SUMMARY PATIENT: CHRISTIAN GRAF UNIT: [id number] ADM DATE: 11/01/18 AGE: 83 : 33 SEX: M ROOM/BED: D.2312 AUTHOR: ASHELY MARIE PHYSICIAN: REFERRING PHYSICIAN: ROSEANNE BALDERAS MD DATE OF SERVICE: 11/01/18 Discharge Plan Patient Name: CHRISTIAN GRAF [facility] [facility] 1935 Planned Disposition: Halfway Facility Anticipated Discharge Date: Discharge Date: Expected LOS: Initial Reviewer: [email or web address] Initial Review Date: 11/01/2018 Generated: 11/01/18 8:42 pm Comments DCP- Discharge Planning Updated by [email or web address]: Una Wolf on 11/01/18 6:[address] Patient Name: CHRISTIAN GRAF Admission Status: ER Accout number: [id number] Admission Date: 11-01-2018 : 1935 Admission Diagnosis:SEPSIS, UNSPECIFIED ORGANISM Attending: ROSEANNE BALDERAS Current LOS: 1 Anticipated DC Date: Planned Disposition: Halfway Facility Primary Insurance: MEDICARE A & B Discharge Planning Comments: CM met with patient's spouse (MARLEY) at bedside after explaining CM role and obtaining verbal consent. Patient has been at [facility] for Rehab was suppose to discharge from there Nov 11. plans to return there upon discharge. CM discussed availability / needs of home health and medical equipment. Spouse is uncertain of discharge needs at this time. CM will continue to follow and assist as needed with discharge planning / needs. Timing Inspector: Una Wolf Last DP export: 11/01/18 6:29 p Patient Name: CHRISTIAN GRAF Page [id number] at 1942 All edits/amendments must be made on the electronic document DICTATION DATE: 11/01/181940 SEASONAL DELIVERY DRIVER: SANTY 11/01/181940 RPT#: [id number] DC DATE: STATUS: ADM IN [facility] [address] [place] [address] END OF REPORT
--- NOTE | 2018-11-01 20:10 | NUR ---
REPORT REC'D AND CARE ASSUMED, REC'D PT RESTING IN BED EYES CLOSED, O2 @ 2 LITERS, PT AWAKENS TO VERBAL STIMULI, SPEECH GARBLED, FOLLOWS SOME COMMANDS WITH CONTINUOUS STIMULATION, RIGHT A/C PIV WITH CARDIZEM @ 10MG/HR AND RIGHT FOREARM PIV WITH NS @ 125CC/HR, LEFT NARE NGT SECURED WITH DEL RIO, PLACEMENT VERIFIED VIA SM AIR BOLUS AUSCULTATED OVER EPIGASTRIM, NGT TO LIWS WITH BROWN DRAINAGE NOTED, ABD ROUND, SOFTER THAN EARLY THIS AM, RIGGINS PATENT DRAINING BLOOD TINGED URINE, BILAT LOWER EXT'S WITH REDDENED AREAS, SCABS/ SORES AND FLAKING SKIN, AT BS.
--- NOTE | 2018-11-01 21:00 | NUR ---
FSBS 153, 2 UNITS REGULAR INSULIN GIVEN TO RIGHT ARM, BP STABLE, PT RESTING EYES CLOSED, RESP EVEN AND UNLABORED, WILL MONITOR CLOSELY FOR CHANGES.
--- NOTE | 2018-11-01 23:34 | NUR ---
REASSESSMENT COMPLETED, ORAL CARE ATTEMPTED ON PATIENT, PT CLENCHED LIPS SHUT AND REFUSED SPONGE, LIP MOISTURIZER APPLIED TO LIPS, HOLLERS OUT IN WHAT SEEMS LIKE PAIN, BUT UNABLE TO TELL NURSE WHERE PAIN IS. 650MG TYLENOL GIVEN DOWN NGT AND 4MG ZOFRAN GIVEN SLOW IVP ATTEMPTING TO MAKE PT COMFORTABLE, PT REMAINS CONFUSED CALLING FOR PEOPLE NOT IN ROOM, REMAINS IN ROOM.
[2018-11-02] VITALS (24 sets, daily range): BP systolic 121–182; BP diastolic 67–110; Ht 177.8 cm; Wt 112.2 kg
--- NOTE | 2018-11-02 00:30 | NUR ---
RIGHT A/C PIV FOUND OUT IN BED WITH PATIENT, FOREARM PIV SWOLLEN, RED, AND TENDER. IV FLUIDS STOPPED, PIV ATTEMPTED X 5, 2O GAUGE PLACED TO LEFT FOREARM NS AND CARDIZEM RESUMED AT PREVIOUS RATES, PT REPOSITIONED FOR COMFORT, REMAINS AT BS, VSS, WILL CONT TO MONITOR CLOSELY FOR CHANGES.
--- NOTE | 2018-11-02 02:00 | NUR ---
UNABLE TO COMPLETE SUICIDE RISK SCREENING DUE TO CONFUSION
--- NOTE | 2018-11-02 03:30 | NUR ---
REASSESSMENT COMPLETED, PT RESTLESS AND DIAPHORETIC, EXCESS BLANKETS REMOVED, PT REPOSITIONED UP IN BED AND ONTO BACK, FACE WASHED, BP STABLE, CM-CAF, WILL CONT TO MONITOR FOR CHANGES.
[2018-11-02 04:36] LABS: BASOPHILS 0.1 % (0-2); EOSINOPHILS 0 % (0-7); HEMATOCRIT 35.6 % (42.0-54.0); HEMOGLOBIN 11.8 g/dL (13.5-17.5); IMMATURE GRANULOCYTES 0.9 % (0-5); LYMPHOCYTES 2.8 % (15-50); MCH 30.9 pg (26.0-34.0); MCHC 33.1 g/dL (31.0-37.0); MCV 93.2 fL (80.0-100.0); MONOCYTES 3.4 % (2-11); NEUTROPHILS 92.8 % (40-80); PLATELET COUNT 162 10x3/uL (130-400); RBC 3.82 10x6/uL (4.20-6.10); RDW 14.9 % (11.5-14.5)
[2018-11-02 04:40] LABS: WBC 19.9 10x3/uL (4.8-10.8)
[2018-11-02 04:48] LABS: ALBUMIN 2.1 g/dL (3.4-5.0); ANION GAP 15.8 mmol/L (8-16); BILIRUBIN - TOTAL 0.87 mg/dL (0.2-1.3); CALCIUM 8.2 mg/dL (8.5-10.1); CARBON DIOXIDE 23.7 mmol/L (21.0-32.0); POTASSIUM - SERUM 3.5 mmol/L (3.5-5.1)
[2018-11-02 04:50] LABS: CREATININE - SERUM 1.2 mg/dL (0.6-1.3)
--- NOTE | 2018-11-02 04:56 | NUR ---
PT PULLING AT IV POLE AND TUBING, GRUNTING AND HOLLERS OUT INTERMITTENTLY WHEN ASKED IF HURTING STATES "YEAH" WHEN ASKED WHERE STATES " I DON'T KNOW" INSTRUCTED PT NOT TO PULL AT IV POLE OR LINES SO NOT TO INJURE SELF, ASLEEP IN RECLINER, REMAINS VISIBLE TO NURSES STATION.
--- NOTE | 2018-11-02 07:12 | NUR ---
AWAKE ANSWERS SOME QUESTIONS. MOANING. INDICATED HE IS HURTING LEFT SIDE. SKIN WARM AND DRY. AT BEDSIDE. IV LEFT FOREARM WITHOUT REDNESS OR SWELLING INFUSING WITH NS AT 125 ML HOUR AND CARDIZEM AT 10 ML HOUR. RIGGINS CATH PATENT DRAINING CLEAR WENDI URINE. MONITOR ATRIAL FIB RATE 109. NG TO LOW INTERMITTENT SUCTION. DARK BROWN DRAINAGE NOTED.
--- NOTE | 2018-11-02 09:10 | NUR ---
IV RESTARTED LEFT HAND WITH 22 G X 1 STICK. PATIENT TOLERATED WELL. INFUSING WITH NS AT 125 ML HOUR AND CARDIZEM AT 10 MG HOUR.
--- NOTE | 2018-11-02 10:54 | OP ---
PATIENT NAME: CHRISTIAN GRAF MEDICAL RECORD: [id number] :[birth year] LOCATION:[facility] D.2312 ADMISSION DATE:11/01/18 SURGEON: SYLVESTER SCHAEFER MD DATE OF OPERATION: 11/01/2018 SURGEON: Sylvester Schaefer MD ANESTHESIA: TIVA by Gurdeep Adrian CRNA. DIAGNOSES: Urinary retention, sepsis, and pneumonia. PROCEDURE: Cystoscopy, bladder clot evacuation, Head catheter insertion over a guidewire. 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 Blood clots in the bladder. ESTIMATED BLOOD LOSS: None. CLINICAL HISTORY: This is an 83-year-old male, who is in the intensive care unit. About 1 month ago, he had gross hematuria and he was in urinary retention. He could not be catheterized for that. I had to bring him to the operating room for cystoscopy, bladder clot evacuation, and insertion of a Head catheter over a guidewire. Prior to his discharge from hospital, the Head catheter was removed. He comes back now in septic shock. He is in the intensive care unit. X-rays are suggestive of a pneumonia. He is again in urinary retention and the nurses have not been able to insert a Head catheter into him. I am bringing him to the OR for cystoscopy, bladder clot evacuation and insertion of a Head catheter over a guidewire. Since he has already been having IV antibiotics, we did not give any further antibiotics in the OR. DESCRIPTION OF PROCEDURE: The patient was given IV sedation. He was placed in lithotomy position and prepped and draped. A 21-Ecuadorean cystoscope with 30-degree lens was used for visualization. Bilateral lateral lobes are obstructive. He does not have a median lobe, but the bladder neck is tall. Going into the bladder, large blood clots were seen. An Ellik evacuator was used to get rid of these blood clots in the bladder. There is no actual site of bleeding. The bladder is highly inflamed consistent with cystitis. The sensor wire was then put through the scope into the bladder. The scope was then removed, leaving the Sensor wire in the bladder. Over the wire, we inserted a 16-Ecuadorean northern arapaho tip Head catheter. Once the catheter was in the bladder, the balloon was inflated with 10 cc of sterile water. The guidewire was then removed entirely. The catheter was put to bag drainage. The patient was brought back to the intensive care unit. TRANSINT:[id number] Voice Confirmation ID: [id number] DOCUMENT ID: [id number] OPERATIVE REPORT [id number] CHRISTIAN GRAF ROBERT S MD at 1054 CC: [id number] DICTATION DATE: 11/01/181744 HEARING CONSULTANT: 11/01/18 2243 ADM IN [place] [id number] [place] [address]
--- NOTE | 2018-11-02 11:00 | NUR ---
COMPLETE BED BATH GIVEN WITH RIGGINS CATH CARE. ORAL CARE DONE. COMPLETE LINEN CHANGE DONE.PATIENT TOLERATED WELL. DR. BALDERAS HERE UPDATE GIVEN.
--- NOTE | 2018-11-02 11:53 | HP ---
PATIENT: CHRISTIAN GRAF MEDICAL RECORD: [id number] ACCOUNT: [id number] LOCATION:[facility] D.2312 : [birth year] ADMISSION DATE: 11/01/18 PCP: ROSEANNE BALDERAS MD HISTORY AND PHYSICAL EXAMINATION DATE OF ADMISSION: 11/01/2018. CHIEF COMPLAINT: Fever, altered mental status. HISTORY OF PRESENT ILLNESS: This is an 83-year-old who [facility] His talked to him on the phone on 10/31/2018 and he was doing well, not having any problems. That evening, apparently, he spiked a temperature and became very confused. He was brought to the ER where he was found to have a temperature of 102.9. His heart rate was up to 144. Urine showed blood. His white count was actually normal, but his lactic acid was elevated at 7.6. He appeared septic. Chest x-ray did not show any acute problems. He was admitted to the ICU for care and evaluation. 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 He was diagnosed with left lower extremity DVT on 09/17/2018. He was admitted to this hospital in August after he had fallen. He was found to have a transverse process fracture in his lower spine. He was discharged from [facility] to [facility] for rehabilitation. He came back in last month for treatment of left lower extremity DVT and went back to [facility] where he has reportedly been doing better according to his . He was actually up and maybe walking a few steps until this started. PAST SURGICAL HISTORY: Cholecystectomy, cystoscopy with removal of 1.5 cm bladder stone. He has had IVC filter placement last month. DRUG ALLERGIES: None known. HOME MEDICATIONS: Simvastatin 20 mg a day, Actos 30 mg a day, glipizide 5 mg twice a day, metoprolol tartrate 50 mg once a day, calcium plus vitamin D daily, trazodone 50 mg at bedtime, Pradaxa 75 mg twice a day, hydrocodone p.r.n. 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 FAMILY HISTORY: Father at 83 of renal cell cancer. Mother at 89 of pneumonia. REVIEW OF SYSTEMS: GENERAL: No major weight changes. HEENT: No particular sinus or allergy problems. RESPIRATORY: No history of COPD or emphysema. CARDIAC: He has had arrhythmias. GASTROINTESTINAL: No significant problems there. GENITOURINARY: He has had bladder stone removed last month by Dr. Limon. MUSCULOSKELETAL: He has osteoarthritis. He is obese. NEUROLOGIC: No history of seizures, no diagnosis of dementia. PSYCHIATRIC: Denies depression or melancholia. PHYSICAL EXAMINATION: VITAL SIGNS: Temperature 102.9, heart rate 144, respirations 19, blood pressure HISTORY AND PHYSICAL [id number] CHRISTIAN GRAF 147/89. GENERAL: He is awake, he is confused. His words do not make sense at times. SKIN: Warm and dry. HEENT: Grossly within normal limits. NECK: Supple. HEART: Tachycardic without murmur. LUNGS: Fairly clear. ABDOMEN: Soft, flat, nontender. EXTREMITIES: He has 2 to 3+ pitting edema bilaterally. LABORATORY DATA: Urinalysis: Red turbid urine, 2+ protein, moderate ketones, greater than 50 red blood cells, glucose greater than 1000. CBC showed a white count of 10,200, hemoglobin 11.7, hematocrit 35.2, 96% neutrophils. Basic metabolic panel is okay except BUN 25, creatinine 1.7. His glucose is 261. Liver functions are normal. INR 1.37. Lactic acid 7.6. ABG: pH 7.481, pCO2 19, pO2 of 77. Troponin 0.047. Chest x-ray shows no acute process. CT abdomen and pelvis without contrast shows bilateral nonobstructing renal stones, otherwise unremarkable. CT of the head shows no acute problems. ASSESSMENT: 1. Sepsis. 2. Blood cultures, Gram stain shows gram-positive bacteremia. Blood culture growing gram-positive cocci. The patient is in the ICU. He has been seen by pulmonary/critical care. He is on vancomycin and Zosyn. He is on a Cardizem drip and given supportive care. Follow up results of cultures. Further recommendations as warranted. I spoke with family at bedside. TRANSINT:[id number] Voice Confirmation ID: [id number] DOCUMENT ID: [id number] ROSEANNE BALDERAS MD at 1153 CC: [id number] DICTATION DATE: 11/02/18 1023 FRAME AND SCRAP CRUSHER: 11/02/18 1103 ADM IN [id number] [place] [address]
--- NOTE | 2018-11-02 12:21 | NUR ---
Nutrition consult: Received verbal order to start Procalamine PPN 2/2 pt NPO with ileus. Order for ProcalAine PPN to start @ 75 ml/hr IVF to decrease to 50 ml/hr RDN following.
--- NOTE | 2018-11-02 12:30 | NUR ---
IV STARTED RIGHT FOREARM X 2 STICKS 20G INFUSING WITH PROCALAMINE AT 75 ML HOUR. PATIENT TOLERATED FAIR. HALDOL GIVEN HAS HELPED SOME. NOT RESTLESS. SON HERE UPDATE GIVEN
--- NOTE | 2018-11-02 13:30 | NUR ---
DR. HAAS HERE. TALKED WITH FAMILY. PATIENT RESTING BETTER AFTER HALDOL. NAPPING AT INTERVALS. NOT RESTLESS. IV INFUSING WITHOUT REDNESS OR SWELLING. RIGGINS CATH PATENT. HERE NO NEW ORDERS
--- NOTE | 2018-11-02 15:00 | NUR ---
NG TO LOW INTERMITTENT SUCTION DARK BROWN DRAININAGE. AWAKES EASILY TO VERBAL STIMULI STILL SOME CONFUSION. FAMILY AT BEDSIDE. LESS RESTLESS NAPPING AT INTERVALS. MONITOR ATRIAL FIB. RIGIGNS CATH PATENT. WENDI URINE. HEAD OF BED ELEVATED 30 DEGREES.
--- NOTE | 2018-11-02 16:15 | NUR ---
HERE UPDATE GIVEN. PATIENT STILL RESTING AT INTERVALS. WAKING UP MORE.
--- NOTE | 2018-11-02 19:00 | NUR ---
SHIFT ASSESSMENT COMPLETE. VS STABLE. NO VISUAL CUES OF DISTRESS NOTED. WILL MONITOR.
--- NOTE | 2018-11-02 21:00 | NUR ---
VS STABLE. NO VISUAL CUES OF DISTRESS NOTED. WILL MONITOR.
[2018-11-03] VITALS (23 sets, daily range): BP systolic 118–158; BP diastolic 55–105
[2018-11-03 06:40] LABS: BASOPHILS 0 % (0-2); EOSINOPHILS 0 % (0-7); HEMATOCRIT 33.4 % (42.0-54.0); HEMOGLOBIN 10.9 g/dL (13.5-17.5); IMMATURE GRANULOCYTES 0.6 % (0-5); LYMPHOCYTES 2.3 % (15-50); MCH 30.8 pg (26.0-34.0); MCHC 32.6 g/dL (31.0-37.0); MCV 94.4 fL (80.0-100.0); MEAN PLATELET VOLUME 10.5 fL (7.4-10.4); MONOCYTES 2.7 % (2-11); NEUTROPHILS 94.4 % (40-80); RBC 3.54 10x6/uL (4.20-6.10)
[2018-11-03 06:44] LABS: PLATELET COUNT 122 10x3/uL (130-400); WBC 13.9 10x3/uL (4.8-10.8)
[2018-11-03 07:01] LABS: ALBUMIN 1.8 g/dL (3.4-5.0); ALKALINE PHOSPHATASE 59 U/L (46-116); ALT (SGPT) 16 U/L (10-68); BILIRUBIN - TOTAL 0.51 mg/dL (0.2-1.3); CALC OSMOLALITY 290 mosm/kg (275-300); CALCIUM 8.2 mg/dL (8.5-10.1); CARBON DIOXIDE 25.9 mmol/L (21.0-32.0); CHLORIDE - SERUM 106 mmol/L (98-107); POTASSIUM - SERUM 3.6 mmol/L (3.5-5.1); PROTEIN - SERUM 5.8 g/dL (6.4-8.2); SODIUM 140 mmol/L (136-145); UREA NITROGEN 30 mg/dL (7-18); VANCOMYCIN - TROUGH 22.1 ug/mL (10.0-20.0); eGFR NON AFRICAN AMERICAN 75 mL/min (90-120)
[2018-11-03 07:03] LABS: GLUCOSE 206 mg/dL (74-106)
--- NOTE | 2018-11-03 07:30 | NUR ---
PATIENT RESTLESS AT TIMES, THEN WILL BE STILL AND QUIET AND WILL HAVE APNEA UP TO 40 SEC. HEART RATE DECREASE INTO 60'S. CARDIZEM TURNED DOWN TO 5 MG/HOUR. PATIENT START BREATHING ON HIS OWN RATE IN THE 30'S. AND BECOMES RESTLESS AGAIN. ASKING FOR HELP. ASKED WHAT WE NEED TO HELP HIM WITH CAN NOT UNDERSTAND HIS ANSWER. STATES HIS LEGS ARE HURTING. TOLERATING TURNING AND REPOSITIONING VERY POORLY. NG TO LOW INTERMITTENT SUCTION RIGGINS PATENT.
--- NOTE | 2018-11-03 11:30 | NUR ---
DR. BALDERAS HERE TALKED WITH SON AND DR. BURCIAGA. PATIENT GIVEN COMPLETE HIBCLENS BED BATH. LINEN CHANGED. NO SKIN BREAKDOWN NOTED. PATIENT TOLERATES TURNING AND REPOSITIONING POORLY. MOANS ALOT WHEN REPOSITIONING. FAMILY AT BEDSIDE. HEELS BRIDGED WITH PILLOW. DR. BALDERAS AND WALDO NOTIFIED OF 30-40 SEC PERIODS OF APNEA. BIPAP ORDERED FOR PATIENT PER DR. HAAS
--- NOTE | 2018-11-03 13:00 | NUR ---
REPOSITIONED. RESTLESS AFTER RESPOSITIONING FAMILY AT BEDSIDE.
--- NOTE | 2018-11-03 14:00 | NUR ---
DR. GARCIA NOTIFIED OF CONSULT. WANTS TO KEEP PTT 45-60
--- NOTE | 2018-11-03 15:00 | NUR ---
RESTING COMFORTABLY ON BIPAP, NO RESTLESSNESS WHILE ON BIPAP. OPENS EYES TO NAME.
[2018-11-03 15:22] LABS: HEMATOCRIT 33.1 % (42.0-54.0); HEMOGLOBIN 10.5 g/dL (13.5-17.5); MCH 31.1 pg (26.0-34.0); MCHC 31.7 g/dL (31.0-37.0); MEAN PLATELET VOLUME 10.7 fL (7.4-10.4); RBC 3.38 10x6/uL (4.20-6.10); RDW 15.4 % (11.5-14.5); WBC 12.2 10x3/uL (4.8-10.8)
[2018-11-03 15:28] LABS: MCV 97.9 fL (80.0-100.0)
[2018-11-03 15:35] LABS: APTT 29.7 SECONDS (22.8-39.4); INR 1.4 (0.85-1.17); PROTIME 16.6 SECONDS (11.6-15.0)
--- NOTE | 2018-11-03 16:15 | NUR ---
HEPARIN BOLUS GIVEN AND HEPARIN GTT STARTED AT 800 UNITS CONTINOUS GTT STARTED. FAMILY IN ROOM EXPLAIN SIDE EFFECTS AND WHY WE ARE STARTING HEPARIN HERE UPDATE GIVEN. PATIENT STILL HAVING SPELLS OF APNEA ON BIPAP. PULSE OX STILL ABOVE 96%. HEART DROPS INTO 60'S. UP IN 80'S AND 90'S WHEN BREATHING. NO SKIN DISCOLORATION WITH APNEA. RESTING WELL ON BIPAP. NOT FIGHT MASK. HALDOL EFFECTIVE
--- NOTE | 2018-11-03 17:00 | NUR ---
RESTING COMFORTABLY ON BIPAP. STILL HAVING PERIODS OF APNEA. OPENS EYES TO NAME. AT BEDSIDE. NO DISTRESS
--- NOTE | 2018-11-03 18:44 | NUR ---
IV RIGHT FOREARM WITHOUT REDNESS OR SWELLING INFUSING WITH PROCALAMINE AT 75 ML HOUR.
--- NOTE | 2018-11-03 19:30 | NUR ---
ASSESSMENT COMPLETED, PT CONFUSED, BIPAP IN USE, HAVING PERIODS OF APNEA, L PIV INTACT WITH HEPARIN GTT @ 8CC/HR AND NS @ KVO, R PIV WITH PROCALAMINE @75CC/HR, BILAT SWR IN USE, @ BEDSIDE
--- NOTE | 2018-11-03 21:30 | NUR ---
NO CHANGE IN STATUS
--- NOTE | 2018-11-03 22:10 | NUR ---
DISCUSSED CODE STATUS WITH , PT HAS LIVING WILL ON CHART, SHE WILL DISCUSS WITH HER SON IN AM
--- NOTE | 2018-11-03 23:00 | NUR ---
HEPARIN GTT ON HOLD FOR 30 MINUTES PER PROTOCOL
--- NOTE | 2018-11-03 23:30 | NUR ---
RESTARTED HEPARIN GTT @ 600UNITS/HR PER PROTOCOL
[2018-11-04] VITALS (25 sets, daily range): BP systolic 113–171; BP diastolic 54–119
--- NOTE | 2018-11-04 01:30 | NUR ---
PT BATHED, GIVEN TYLENOL SUPP FOR TEMP
--- NOTE | 2018-11-04 03:30 | NUR ---
PT RESTING QUIETLY, NO APNEA NOTED AT THIS TIME
[2018-11-04 05:25] LABS: BASOPHILS 0 % (0-2); EOSINOPHILS 0 % (0-7); HEMATOCRIT 32.2 % (42.0-54.0); HEMOGLOBIN 10.2 g/dL (13.5-17.5); IMMATURE GRANULOCYTES 1.1 % (0-5); LYMPHOCYTES 4.4 % (15-50); MCH 30.7 pg (26.0-34.0); MCHC 31.7 g/dL (31.0-37.0); MEAN PLATELET VOLUME 10.5 fL (7.4-10.4); MONOCYTES 4.3 % (2-11); NEUTROPHILS 90.2 % (40-80); PLATELET COUNT 115 10x3/uL (130-400); RBC 3.32 10x6/uL (4.20-6.10); RDW 15.3 % (11.5-14.5); WBC 10.8 10x3/uL (4.8-10.8)
--- NOTE | 2018-11-04 05:30 | NUR ---
SPOUSE AT BEDSIDE, PT RESTING ON BIPAP, NO FURTHER APNEA NOTED
[2018-11-04 06:07] LABS: ALBUMIN 1.5 g/dL (3.4-5.0); ANION GAP 11.2 mmol/L (8-16); BILIRUBIN - TOTAL 0.41 mg/dL (0.2-1.3); CALCIUM 8.2 mg/dL (8.5-10.1); CREATININE - SERUM 1.2 mg/dL (0.6-1.3); PROTEIN - SERUM 5.4 g/dL (6.4-8.2)
[2018-11-04 06:10] LABS: POTASSIUM - SERUM 4.2 mmol/L (3.5-5.1)
--- NOTE | 2018-11-04 09:52 | NUR ---
0800 AM ASSESMENT COMPLETE SEE FLOW SHEET FOR FINDINGS.. PT IS AWAKE MAKING GARBLED VERBAL NOISES. BIPAP O2 IN PLACE.. SAT IS 98%.. IS AT THE BEDSIDE.. 0830 BIPAP TAKEN OFF AND NASAL CANNULA PLACED ON PT AT 3 L.. SAT REMAINS AT 98%.. ORAL CARE GIVEN AND SPEECH IS MUCH EASIER TO UNDERSTAND.. PT IS C/O BACK PAIN , REPOSITIONED AND TYLENOL GIVEN VIA NGT.. 0900 PT IS NOT C/O MUCH ABOUT PAIN.. OTHER FAMILY MEMEBERS IN WITH SEEING PT.. 924 DR WHITE IN TO SEE PT AND SPEAKING WITH FAMILY PT REMAINS ON NASAL O2
--- NOTE | 2018-11-04 10:57 | NUR ---
NUTRITION F/U PT REMAINS NPO WITH NG TUBE TO SUCTION. CURRENTLY HAS PROCALAMINE INFUSING AT 75 CC/HR. PROVIDING ~440 KCAL, 54 GM PROTEIN PER DAY. RECOMMEND TRANSITION TO TUBE FEEDS MEDICALLY FEASIBLE. RD FOLLOWING
--- NOTE | 2018-11-04 18:07 | NUR ---
1100 GONE FROM BEDSIDE AND SISTER THERE PT REMAINS UN RESTRAINED.. 1345 DR BALDERAS IN TO SEE PT UPDATE IS GIVEN.. SPOKE WITH FAMILY PT ABLE TO CONVERSE WITH HIM AT THIS TIME.. PT IS WITH A PRODUCTIVE COUGH AND SUCTIONING DONE TO REMOVE FROM BACK OF PT THROAT.. 1350 DR WHITE SPEAKING WITH DR BALDERAS.. 1410 CONTINUES WIHTOUT OTHER CHANGES OCCASSIONAL SUCTIONING DONE .. TYLENOL GIVEN FOR C/O PAIN... 1500 BACK AT BEDSIDE WITH HEADEND TECHNICIAN 1630 MEDS ARE GIVEN.. 1800 INSULIN COVER PT IS WITHOUT CHANGES
[2018-11-04 19:08] LABS: AEROBE ID Final report (())
--- NOTE | 2018-11-04 19:30 | NUR ---
PT AWAKE WITH BIPAP IN USE, FAMILY AT BEDSIDE, ASSESSMENT COMPLETED
--- NOTE | 2018-11-04 21:30 | NUR ---
REMAINS ON BIPAP, OCCASSIONAL PERIODS OF APNEA NOTED, PRESENT
--- NOTE | 2018-11-04 23:30 | NUR ---
PT RESTING QUIETLY, CARDENE DRIP INFUSING, B/P STABLE
[2018-11-05] VITALS (23 sets, daily range): BP systolic 76–165; BP diastolic 50–112
--- NOTE | 2018-11-05 01:30 | NUR ---
PT RESTING QUIETLY ON BIPAP, CARDENE GTT INFUSING, B/P STABLE IN RANGE
--- NOTE | 2018-11-05 03:30 | NUR ---
PT BATHED, TOLERATED WELL, SPOUSE ASLEEP AT BEDSIDE
[2018-11-05 04:47] LABS: HEMATOCRIT 31.3 % (42.0-54.0); HEMOGLOBIN 10.5 g/dL (13.5-17.5); LYMPHOCYTES 6.8 % (15-50); MCHC 33.5 g/dL (31.0-37.0); MCV 95.4 fL (80.0-100.0); MEAN PLATELET VOLUME 10.5 fL (7.4-10.4); NEUTROPHILS 86.3 % (40-80); PLATELET COUNT 140 10x3/uL (130-400); RBC 3.28 10x6/uL (4.20-6.10); RDW 14.6 % (11.5-14.5); WBC 9.4 10x3/uL (4.8-10.8)
[2018-11-05 04:48] LABS: POTASSIUM - SERUM 3.6 mmol/L (3.5-5.1)
[2018-11-05 05:01] LABS: ALBUMIN 1.6 g/dL (3.4-5.0); BILIRUBIN - TOTAL 0.48 mg/dL (0.2-1.3); CALCIUM 8.4 mg/dL (8.5-10.1); CARBON DIOXIDE 25.6 mmol/L (21.0-32.0); CREATININE - SERUM 1.1 mg/dL (0.6-1.3); PROTEIN - SERUM 5.7 g/dL (6.4-8.2)
--- NOTE | 2018-11-05 06:38 | NUR ---
PT ALERT, BIPAP REMOVED, O2 @ 3L VIA N/C, AT BEDSIDE TALKING WITH PT
--- NOTE | 2018-11-05 09:05 | NUR ---
0700 RESTING QUIETLY AWAKENS TO VOICE SPOUSE REMAINS AT BEDSIDE ASSESSMENT COMPLETE HEPARIN 700 UNITS AT 7ML/HR, CARDENE 5MG AT 25ML/HR, PROCALAMINE AT 75/ML, AND NS AT 50/HR INFUSING TO PEREFERAL IVS. SITES SATISFACTORY EMOTIONAL SUPPORT GIVEN
--- NOTE | 2018-11-05 09:10 | NUR ---
0900 MAURA BALDERAS AND CHRISTOPHER ROUNDING AT BEDSIDE NEW ORDER NOTED DECREASED NS TO 30ML/HR
--- NOTE | 2018-11-05 14:05 | NUR ---
1100 WENT HOME, FAMILY MEMBER REMAINS AT BEDSIDE PT CONTINIOUS MUMBLING
--- NOTE | 2018-11-05 14:20 | NUR ---
1300 PLACED BACK ON BPAP
--- NOTE | 2018-11-05 15:26 | NUR ---
1500 RESTING QUIETLY VOICES NO COMPLAINTS AT THIS TIME
--- NOTE | 2018-11-05 15:29 | NUR ---
1520 CALLED REPORT TO DERIC ON MED II FOR ROOM 210
--- NOTE | 2018-11-05 16:09 | NUR ---
1520 CALLED REPORT TO DERIC PERSAUD ON MED II
--- NOTE | 2018-11-05 16:10 | NUR ---
1530 TRANSPORTED PT TO 2102 WITHOUT COMPLICATIONS. RECEIVED BY 2 RNS
--- NOTE | 2018-11-05 17:00 | NUR ---
PATIENT RESTING. FAMILY AT BEDSIDE. PATIENT CONFUSED. ON BIPAP. WILL CONTINUE TO MONITOR.
--- NOTE | 2018-11-05 20:00 | NUR ---
PT AWAKE, BIPAP IN USE, NGT-LIS, BILAT SOFT WRIST RESTRAINTS IN USE, NO DISTRESS NOTED
--- NOTE | 2018-11-05 21:15 | NUR ---
D/C'D BIPAP, PT PLACED ON O2 @ 3L VIA N/C
--- NOTE | 2018-11-05 23:00 | NUR ---
RESTING QUIETLY, REMAINS ON N/C, SPO2 96%
[2018-11-06] VITALS (26 sets, daily range): BP systolic 106–152; BP diastolic 54–99
--- NOTE | 2018-11-06 01:08 | NUR ---
STANDING AT BEDSIDE, PT AWAKE, SPEECH GARBLED, NO DISTRESS NOTED
--- NOTE | 2018-11-06 02:01 | NUR ---
STARTED 20 GAUGE IV IN RIGHT HAND, MOVED L HAND IV FLUIDS TO R HAND IV
--- NOTE | 2018-11-06 04:15 | NUR ---
PT CONFUSED, AWAKE WITH NO DISTRESS, SPOUSE PRESENT IN ROOM
[2018-11-06 06:15] LABS: HEMATOCRIT 31.4 % (42.0-54.0); HEMOGLOBIN 10.4 g/dL (13.5-17.5); MCH 30.8 pg (26.0-34.0); MCHC 33.1 g/dL (31.0-37.0); MEAN PLATELET VOLUME 10.6 fL (7.4-10.4); RBC 3.38 10x6/uL (4.20-6.10); RDW 14.7 % (11.5-14.5)
[2018-11-06 06:23] LABS: MCV 92.9 fL (80.0-100.0); PLATELET COUNT 195 10x3/uL (130-400); WBC 13.1 10x3/uL (4.8-10.8)
[2018-11-06 06:35] LABS: ALBUMIN 1.7 g/dL (3.4-5.0); ANION GAP 12.5 mmol/L (8-16); BILIRUBIN - TOTAL 0.49 mg/dL (0.2-1.3); CALCIUM 8.5 mg/dL (8.5-10.1); CARBON DIOXIDE 25.4 mmol/L (21.0-32.0); CREATININE - SERUM 1.1 mg/dL (0.6-1.3); POTASSIUM - SERUM 3.9 mmol/L (3.5-5.1); PROTEIN - SERUM 5.9 g/dL (6.4-8.2); VANCOMYCIN - TROUGH 27.8 ug/mL (10.0-20.0)
--- NOTE | 2018-11-06 06:50 | NUR ---
SELIN MÁRQUEZ HELD DUE TO HIGH VANC LEVEL
[2018-11-06 08:59] LABS: LYMPHOCYTES 11 % (15-50); MONOCYTES 9 % (2-11); NEUTROPHILS 77 % (40-80); PLATELET ESTIMATE NORMAL
[2018-11-06 09:00] LABS: ROULEAUX OCC
--- NOTE | 2018-11-06 09:14 | NUR ---
0700 ASSESSMENT COMPLETE ASLEEP SNORING AWAKENS TO VOICE ASNWERS QUESTIONS APPROPRIATELY
--- NOTE | 2018-11-06 09:18 | NUR ---
0700 ASSESSMENT COMPLETE ORAL AND FACIAL CARE GIVEN HEPARIN 1100 UNITS AT 11ML/HR, CARDENE 5MG AT 25ML/HR, NS AT 30ML/HR, PROCALAMINE AT 75ML/HR. AWAKE IN BED REPOSITIONED FOR COMFORT WITH EXTREMETIES X 4 ELEVATED UP ON PILLOWS, REMAINS IN CONTROLLED AFIB AT 91
--- NOTE | 2018-11-06 09:54 | NUR ---
Nutrition follow-up: ProcalAmine PPN @ 75 ml/hr Pt with ileus Labs reviewed NGT->LIWS Wt: 242# Will need to start TPN within 24-48 hours to better meet pts estimated energy needs if ileus continues. RDN following.
--- NOTE | 2018-11-06 14:43 | NUR ---
0739 TYLENOL 650 LIQUID GIVEN DOWN NGT FOR SIGNS OF PAIN IN BACK
--- NOTE | 2018-11-06 14:44 | NUR ---
0900 REPOSITIONED TO LEFT SIDE SPOUSE REMAINS AT BED SIDE EMOTIONAL SUPPORT PROVIDED
--- NOTE | 2018-11-06 14:44 | NUR ---
1100 RESTING QUIETLY REPOSITIONED TO BACK ORAL CARE PROVIDED
--- NOTE | 2018-11-06 14:45 | NUR ---
1300 REPOSITIONED TO RIGHT SIDE NO CHANGES IN HEPARIN INFUSION REMAINS AT 1100 UNITS /HR NEXT APTT IN AM
--- NOTE | 2018-11-06 14:51 | NUR ---
1424 TYLENOL 650 LIQUID GIVEN DOWN NGT FOR BACK PAIN CLAMPED NGT FOR NOW
--- NOTE | 2018-11-06 15:02 | NUR ---
1500 NOTIFIED ESTUARDO VASCULAR ACCESS NURSE FOR PICC LINE PLACEMENT PER DR LEACH REQUEST
--- NOTE | 2018-11-06 15:03 | NUR ---
1515 VASCULAR ACCESS NURSE AT BEDSIDE FOR PICC LINE PLACEMENT
--- NOTE | 2018-11-06 15:24 | NUR ---
1510 NOTIFIED SPOUSE FOR PHONE CONSENT FOR PICC LINE PLACEMENT WITH 2 RNS
--- NOTE | 2018-11-06 17:49 | NUR ---
1700 R UPPER ARM PICC CLEARED BY XRAY FOR USE NEW TUBING USED NS AT 30ML/HR
--- NOTE | 2018-11-06 18:31 | NUR ---
1974 INQUIRED OF PHARMACIST BEFORE HANGING VANCOMYCIN IVPB. WAS INSTRUCTED TP HANG JEFF
--- NOTE | 2018-11-06 19:15 | NUR ---
PT RR-32, MILD STRUGGLING NOTED WITH RESPIRATIONS, PLACED BACK ON BIPAP
--- NOTE | 2018-11-06 21:35 | NUR ---
CHECKED FOR RECTAL IMPACTION, REMOVED APPROX 50CC HARD FORMED STOOL, REPOSITIONED FOR COMFORT
--- NOTE | 2018-11-06 23:30 | NUR ---
PT ASLEEP, BIPAP IN USE, NO DISTRESS NOTED
[2018-11-07] VITALS (25 sets, daily range): BP systolic 94–143; BP diastolic 61–91
--- NOTE | 2018-11-07 01:30 | NUR ---
RESTING QUIETLY, LARGE LIQUID BM, CLEANED PER STAFF, REPOSITIONED
--- NOTE | 2018-11-07 03:30 | NUR ---
PT SLEEPING, REMAINS ON BIPAP WITH NO DISTRESS
[2018-11-07 04:54] LABS: BASOPHILS 0.2 % (0-2); EOSINOPHILS 0.1 % (0-7); HEMATOCRIT 33.2 % (42.0-54.0); IMMATURE GRANULOCYTES 7.1 % (0-5); LYMPHOCYTES 7.4 % (15-50); MCH 30.8 pg (26.0-34.0); MCHC 33.1 g/dL (31.0-37.0); MEAN PLATELET VOLUME 10.2 fL (7.4-10.4); MONOCYTES 3.9 % (2-11); NEUTROPHILS 81.3 % (40-80); PLATELET COUNT 212 10x3/uL (130-400); RBC 3.57 10x6/uL (4.20-6.10); RDW 14.6 % (11.5-14.5); WBC 12.9 10x3/uL (4.8-10.8)
[2018-11-07 05:27] LABS: ALBUMIN 1.6 g/dL (3.4-5.0); ALKALINE PHOSPHATASE 103 U/L (46-116); CALCIUM 8.3 mg/dL (8.5-10.1); CARBON DIOXIDE 26.7 mmol/L (21.0-32.0); CHLORIDE - SERUM 113 mmol/L (98-107); POTASSIUM - SERUM 3.8 mmol/L (3.5-5.1); PROTEIN - SERUM 5.5 g/dL (6.4-8.2); SODIUM 146 mmol/L (136-145); UREA NITROGEN 59 mg/dL (7-18); eGFR NON AFRICAN AMERICAN 75 mL/min (90-120)
--- NOTE | 2018-11-07 05:36 | NUR ---
PT AROUSES EASILY, HAD LIQUID BM, VITALS STABLE
[2018-11-07 05:50] LABS: ALT (SGPT) 53 U/L (10-68); CALC OSMOLALITY 309 mosm/kg (275-300); GLUCOSE 138 mg/dL (74-106)
--- NOTE | 2018-11-07 07:00 | NUR ---
PATIENT RESTING IN BED AWAKE AND ALERT BUT CONFUSED. ON BIPAP. VSS. A-FIB CONTROLLED. WILL CONTINUE TO MONITOR
--- NOTE | 2018-11-07 09:00 | NUR ---
PATIENT RESTING IN BED C VSS. WILL CONTINUE TO MONITOR
--- NOTE | 2018-11-07 13:12 | NUR ---
PULLED UP IN BED AND TURNED TO RIGHT SIDE. IN ROOM. VSS.
--- NOTE | 2018-11-07 15:56 | NUR ---
AFTER IBUPROFEN PATIENT STILL REFUSED TO LAY FLAT DUE TO PAIN, SO MRI POSTPONED.
--- NOTE | 2018-11-07 17:47 | NUR ---
TALKED TO FAMILY ABOUT CODE STATUS. RIGHT NOW THEY HAVE DECIDED TO TAKE ALL MEASURES EXCEPT CHEST COMPRESSIONS. CALLED DR. BALDERAS TO LET HIM KNOW. STATED THATS FINE WITH HIM AND TO GO AHEAD AND PUT ORDER IN COMPUTER.
--- NOTE | 2018-11-07 19:30 | NUR ---
PT RESTING QUIETLY, O2 @ 3L VIA N/C, NG TUBE INTACT, R PICC INTACT WITH NS @ 30 CC/HR, GENERALIZED EDEMA, NO DISTRESS NOTED
--- NOTE | 2018-11-07 21:30 | NUR ---
PT ASLEEP ON BIPAP, VITALS STABLE
--- NOTE | 2018-11-07 23:30 | NUR ---
PT SLEEPING, BIPAP IN USE, NO DISTRESS
[2018-11-08] VITALS (24 sets, daily range): BP systolic 96–135; BP diastolic 7–93
--- NOTE | 2018-11-08 01:30 | NUR ---
AROUSES EASILY, PT BATHED, BILAT ARMS WITH WEEPING EDEMA
--- NOTE | 2018-11-08 03:30 | NUR ---
RESTING QUIETLY WITHOUT DISTRESS
--- NOTE | 2018-11-08 05:30 | NUR ---
PT ASLEEP WITH NO CHANGES NOTED
[2018-11-08 07:16] LABS: CALC OSMOLALITY 307 mosm/kg (275-300); CALCIUM 8.1 mg/dL (8.5-10.1); CARBON DIOXIDE 25.3 mmol/L (21.0-32.0); CHLORIDE - SERUM 114 mmol/L (98-107); CREATININE - SERUM 0.8 mg/dL (0.6-1.3); GLUCOSE 161 mg/dL (74-106); POTASSIUM - SERUM 3.7 mmol/L (3.5-5.1); SODIUM 146 mmol/L (136-145); UREA NITROGEN 52 mg/dL (7-18); eGFR NON AFRICAN AMERICAN > 90 mL/min (90-120)
--- NOTE | 2018-11-08 09:33 | NUR ---
NUTRITION F/U CHART REVIEWED, PT CONTINUES WITH NG TUBE. ORDER RECEIVED TO START TUBE FEEDS. GLUCERNA 1.0 STARTED WITH GOAL RATE 75 CC/HR. WILL MONITOR PT PROGRESS, TRANSITION TO ORAL NUTRITION WHEN APPROPRIATE. RD FOLLOWING
--- NOTE | 2018-11-08 10:26 | NUR ---
0700 AWAKE, ALERT ANSWERS QUESTIONS APPROPRIATELY ASSESSMENT COMPLETE NS INFUSING AT 30ML/HR ORAL FACE AND RIGGINS CARE PROVIDED
--- NOTE | 2018-11-08 12:14 | NUR ---
0900 DR CHRISTOPHER DODGE AT BEDSIDE NGT D/Cd
--- NOTE | 2018-11-08 12:15 | NUR ---
1100 SPOUSE AT BEDSIDE ASSISTING WITH CLEAR LIQUID TRAY TOTAL FEEDER
--- NOTE | 2018-11-08 13:43 | NUR ---
1101 PHYSICAL THERAPIST AT BEDSIDE PERFORMING THERAPY UNABLE TO GET PATIENT UP IN CHAIR NOTIFIED DR WHITE THAT PATIENT IS A MECHANICAL LIFT ONLY PERFORMED ADLS IN BED
--- NOTE | 2018-11-08 13:51 | NUR ---
1300 SPOUSE AND SON AT BEDSIDE PATIENT SPEAKING CLEARLY APPETITE GOOD
--- NOTE | 2018-11-08 17:57 | NUR ---
1500 RESTING QUIETLY AWAKENS QUICKLLY TO VOICE VOICES NO COMPLAINTS
--- NOTE | 2018-11-08 17:59 | NUR ---
9458 SPOUSE AT BEDSIDE FEEDING PATIENT CLEALR LIQUID DIET TOLERATED WELL APPETITE GOOD
--- NOTE | 2018-11-08 18:00 | NUR ---
1745 C/O HEADACHE TYLENLOL 650 LIQUID PO GIVEN
--- NOTE | 2018-11-08 22:01 | NUR ---
1900 PATIENT ASSESSMENT COMPLETED AT [facility] TIME. NO DISTRESS NOTED. PT DENIES COMPLAINTS. WILL MONITOR OF CHANGES 2100 PT GIVEN MEDICINE AT THIS TIME. PT TOOK MEDS WITHOUT PROBLEMS. PT REQUESTING B-PAP TO BE ON SO HE CAN GO TO SLEEP. WILL CONTIUNE TO MONITOR FOR CHANGES
--- NOTE | 2018-11-08 23:28 | NUR ---
2300 PT REASSESSMENT COMPLETED AT THIS TIME. PT RESTING WITH EYES CLOSED, AND AWAKES TO NAME. NO DISTRESS NOTED AT THSI TIME. WILL MONITOR FOR CHANGES
[2018-11-09] VITALS (16 sets, daily range): BP systolic 94–142; BP diastolic 58–98
--- NOTE | 2018-11-09 01:16 | NUR ---
0100 PT RESTING WITH EYES CLOSED, RESP. EVEN NON LABORED. WILL MONITOR FOR CHANGES IN COND.
--- NOTE | 2018-11-09 07:30 | NUR ---
REC'ED REPORT FROM OUT GOING RN - PT RESTING WITH EYES CLOSED, WITH BIPAP MASK ON - RESPIRATINS REG RATE AND RHYTHM - CPOC
--- NOTE | 2018-11-09 07:56 | NUR ---
0300 PT REASSESSMENT COMPLETED AT THIS TIME, NO CHANGES IN PT COND. NOTED. WILL MON. FOR CHANGES 0500 PT I&O COLLECTED, AND DALIT WEIGHT DONE. NO CHANGES NOTED, WILL WATCH FOR CHANGES
--- NOTE | 2018-11-09 08:10 | NUR ---
ASSESSMENT COMPLETE - BREAKFAST TRAY GIVEN TO PATIENT - PATIENT ASKED FOR ASSISTANCE WITH JELLO - PATIENT ASKED TO BE PUT BACK ON BIPAP - COMPLETED PT WANTED TO NAP
--- NOTE | 2018-11-09 08:57 | NUR ---
PATIENT SUPINE IN BED - BIPAP ON - RESPIRATIONS REG RATE AND RHYTHM
--- NOTE | 2018-11-09 09:54 | NUR ---
PT RESTING WITH EYES CLOSED ON BIPAP - AWOKEN WITH TACTILE STIMULI - MEDICAITONS GIVEN - SEE MAR - PATIENT ASKED FOR ICE WATER - NO OTHER C/O OR CONCERNS VERBALIZED
--- NOTE | 2018-11-09 10:00 | NUR ---
DR. WHITE AT BEDSIDE FOR ASSESSMENT - ANSWERED QUESITNOS TO MDs SATISFACTION - MD ORDERED BMP - AWAITING RESULTS
--- NOTE | 2018-11-09 11:27 | NUR ---
LARGE LIQUID STOOL - BATHED PT - CHANGED BED CLOTHES/LINENS - PHYSICAL THERAPIST ASSISTED WITH PROCEDURE, P.T. WILL CONTINUE TO FOLLOW PATIENT'S STATUS. WILL NOT GET PT UP TO CHAIR AT THIS TIME - SEE P.T. FLOW SHEET
[2018-11-09 11:40] LABS: CALC OSMOLALITY 301 mosm/kg (275-300); CALCIUM 7.9 mg/dL (8.5-10.1); CARBON DIOXIDE 27.6 mmol/L (21.0-32.0); CHLORIDE - SERUM 110 mmol/L (98-107); CREATININE - SERUM 0.7 mg/dL (0.6-1.3); GLUCOSE 204 mg/dL (74-106); POTASSIUM - SERUM 3.5 mmol/L (3.5-5.1); SODIUM 144 mmol/L (136-145); eGFR NON AFRICAN AMERICAN > 90 mL/min (90-120)
[2018-11-09 11:44] LABS: UREA NITROGEN 38 mg/dL (7-18)
--- NOTE | 2018-11-09 11:45 | NUR ---
MEDICTIONS GIVEN - SEE MAR - CPOC
--- NOTE | 2018-11-09 12:00 | NUR ---
SPOUSE AT BEDSIDE - OFFERED TO ASSIST TO FEEDING PATIENT - PATIENT ATE ~1/2 LUNCH TRAY - CPOC
--- NOTE | 2018-11-09 14:00 | NUR ---
DR. WHITE CALLED TO GIVE TRANSFER TO TELEMETRY ORDER -
--- NOTE | 2018-11-09 14:30 | NUR ---
DR. BALDERAS AT BEDSIDE FOR ASSESSMENT - AGREED TO TRANSFERR TO TELEMETRY - CPOC
--- NOTE | 2018-11-09 14:52 | NUR ---
CALLED REPORT TO letitia RN - PT TO TRANSFER TO 3027
--- NOTE | 2018-11-09 15:07 | NUR ---
ATTEMPTED TO NOTIFY SPOUSE OF PT'S TRANSFER TO ROOM 2207 - CALLED [phone] CONTACTED A ISRAELI RESTURANT - CALLED SPOUSES CELL PHONE [phone] BUT WAS NOT SETUP FOR TAKING MESSAGES. UNABLE TO CONTACT PATIENT
--- NOTE | 2018-11-09 15:18 | NUR ---
CORRECT PHONE NUMBER REC'ED FROM PATIENT - [phone] - CALLED SPOUSE TO INFORM OF TRANSFER TO 2207 - SPOUSE THANKED FOR PHONE CALL AND CARE OF PATIENT (CHANGED NUER ONCOVER SHEET)
--- NOTE | 2018-11-09 16:00 | NUR ---
RECEIVED TO ROOM 2207 VIA BED FROM ICU. A/O X3. EDEMA NOTED TO ALL EXTREMETIES AND PENIS. THIS APPEARS TO BE DIMINISHING, MUCH LESS TIGHT. WILL MONITOR. DENIES NEEDS.
--- NOTE | 2018-11-09 16:03 | NUR ---
TRANSFERRED PT WITH ALL BELONGINGS VIA BED TO ROOM 220
--- NOTE | 2018-11-09 17:00 | NUR ---
FSSBS 152. GIVEN 2 UNITS REGULAR SUBQ PER SS. FAMILY IN ROOM.
--- NOTE | 2018-11-09 18:00 | NUR ---
SITTING UP IN BED EATING CL SUPPER. NO C/O AT THIS TIME. DENIES NEEDS. FAMILY AT BEDSIDE.
--- NOTE | 2018-11-09 19:15 | NUR ---
PT ALERT. FAMILY IN ROOM. PT ORIENTED TO SELF AND SITUATION. AWARE OF BEING IN THE HOSPITAL BUT LACKS DETAILS OF SPECIFIC PLACE AND TIME. BILATERAL UPPER AND LOWER EDEMA. DRY, REDDENDED AREAS TO BILATERAL LOWER LEGS. BILATERAL UPPER LOBES CLEAR TO AUSCULTATION BILATERAL LOWER LOBES DIMINISHED. RIGHT UPPER ARM PICC THAT IS PATENT AND FLUSHES WELL. DENIES FURTHER ISSUES AT THIS TIME. CALL LIGHT IN REACH. BED ALARM ON. CPOC.
[2018-11-10] VITALS: BP 137/58
[2018-11-10 04:00] VITALS: BP 140/62
[2018-11-10 09:08] VITALS: BP 124/75
[2018-11-10 11:36] VITALS: BP 144/76
[2018-11-10 16:31] VITALS: BP 136/71
--- NOTE | 2018-11-10 19:15 | NUR ---
PT ALERT AND ORIENTED TO SELF AND SITUATION. PT CONVERSING WITH THIS NURSE WHEN HE BEGAN TO ASK "WHERE ARE THE KEYS?" "HOW DO WE START THIS THING?" PT REFERRED TO HOSPITAL BED A CAR SEVERAL TIMES. EASILY REORIENTED. HAS RIGHT UPPER ARM PICC LINE THAT IS PATENT AND FLUSHES WELL. UPPER AND LOWER EXTREMETY EDEMA STILL PRESENT. PENIS SWOLLEN WHERE RIGGINS IS INSERTED. ELEVEVATED WITH SLING. DENIES PAIN OR DISCOMFORT. STATES SEVERAL TIMES "THIS IS THE BEST I HAVE FELT IN A LONG TIME." CALL LIGHT WITHIN REACH OF PATIENT. CLOSE TO NURSES DESK FOR MONITORING. CPOC.
[2018-11-10 20:00] VITALS: BP 131/81
--- NOTE | 2018-11-11 03:00 | NUR ---
I have reviewed this patient and I concur with the Shift Assessment completed by the Licensed Practical Nurse today this shift.
[2018-11-11 04:00] VITALS: BP 143/80
--- NOTE | 2018-11-11 04:55 | NUR ---
BED BATH GIVEN. SHEETS CHANGED. RIGGINS CARE AND ORAL CARE PROVIDED. PT TOLERATED WELL.
--- NOTE | 2018-11-11 07:51 | NUR ---
PATIENT RESTING IN BED WITH EYES CLOSED, AROUSED EASILY TO VOICE. PATIENT DENIES PAIN AND NO SHORTNESS OF BREATH AT THIS TIME. PATIENT ORIENTED WITH CONFUSION REPORTED AT TIMES. NO NEEDS VOICED, CL IN REACH
[2018-11-11 08:52] VITALS: BP 110/86
--- NOTE | 2018-11-11 11:17 | MORECARE ---
CASE MANAGEMENT DISCHARGE SUMMARY PATIENT: CHRISTIAN GRAF UNIT: [id number] ADM DATE: 11/01/18 AGE: 83 : 33 SEX: M ROOM/BED: D.2207 AUTHOR: ASHELY MARIE PHYSICIAN: REFERRING PHYSICIAN: ROSEANNE BALDERAS MD DATE OF SERVICE: 11/11/18 Discharge Plan Patient Name: CHRISTIAN GRAF Facility: [facility]:[place] : 1935 Planned Disposition: Shelter Facility Anticipated Discharge Date: Discharge Date: Expected LOS: Initial Reviewer: [email or web address] Initial Review Date: 11/01/2018 Generated: 11/11/18 12:17 pm Comments DCP- Discharge Planning Updated by [email or web address]: Sherice Petty on 11/11/18 10:[address] Patient did not want to go back to [facility] he stated that "they froze me to " patient and would like to go to [facility] if he could be accepted, referral sent DCP- Discharge Planning Updated by [id number]: Una Wolf on 11/01/18 6:[address] Patient Name: CHRISTIAN GRAF Admission Status: ER Accout number: [id number] Admission Date: 11-01-2018 : 1935 Admission Diagnosis:SEPSIS, UNSPECIFIED ORGANISM Attending: ROSEANNE BALDERAS Current LOS: 1 Anticipated DC Date: Planned Disposition: Shelter Facility Primary Insurance: MEDICARE A & B Discharge Planning Comments: CM met with patient's spouse (MARLEY) at bedside after explaining CM role and obtaining verbal consent. Patient has been at [facility] for Rehab was suppose to discharge from there Nov 11. plans to return there upon discharge. CM discussed availability / needs of home health and medical equipment. Spouse is uncertain of discharge needs at this time. CM will continue to follow and assist as needed with discharge planning / needs. Diesel Technician: Una Wolf Last DP export: 11/01/18 6:42 p Patient Name: CHRISTIAN GRAF Page [id number] at 1117 All edits/amendments must be made on the electronic document DICTATION DATE: 11/11/181116 TARRING MACHINE OPERATOR: SANTY 11/11/181116 RPT#: [id number] DC DATE: STATUS: ADM IN [facility] [address] [place] [address] END OF REPORT
--- NOTE | 2018-11-11 11:26 | MORECARE ---
CASE MANAGEMENT DISCHARGE SUMMARY PATIENT: CHRISTIAN GRAF UNIT: [id number] ADM DATE: 11/01/18 AGE: 83 : 33 SEX: M ROOM/BED: D.2207 AUTHOR: ASHELY MARIE PHYSICIAN: REFERRING PHYSICIAN: ROSEANNE BALDERAS MD DATE OF SERVICE: 11/11/18 Discharge Plan Patient Name: CHRISTIAN GRAF Facility: [facility]:[place] : 1935 Planned Disposition: Retirement Facility Anticipated Discharge Date: Discharge Date: Expected LOS: Initial Reviewer: [id number] Initial Review Date: 11/01/2018 Generated: 11/11/18 12:26 pm Comments DCP- Discharge Planning Updated by [email or web address]: Sherice Petty on 11/11/18 10:[address] Patient did not want to go back to [facility] he stated that "they froze me to " patient and would like to go to [facility] if he could be accepted, referral sent DCP- Discharge Planning Updated by [email or web address]: Una Wolf on 11/01/18 6:[address] Patient Name: CHRISTIAN GRAF Admission Status: ER Accout number: [id number] Admission Date: 11-01-2018 : 1935 Admission Diagnosis:SEPSIS, UNSPECIFIED ORGANISM Attending: ROSEANNE BALDERAS Current LOS: 1 Anticipated DC Date: Planned Disposition: Retirement Facility Primary Insurance: MEDICARE A & B Discharge Planning Comments: CM met with patient's spouse (MARLEY) at bedside after explaining CM role and obtaining verbal consent. Patient has been at [facility] for Rehab was suppose to discharge from there Nov 11. plans to return there upon discharge. CM discussed availability / needs of home health and medical equipment. Spouse is uncertain of discharge needs at this time. CM will continue to follow and assist as needed with discharge planning / needs. Drafter Apprentice: Una Wolf External Providers External Provider: [facility] Next Contact Date: Service Request Date: Service Type: Resolution: Reviewer: Comments: Last DP export: 11/11/18 10:17 am Patient Name: CHRISTIAN GRAF Page 16032 at 1126 All edits/amendments must be made on the electronic document DICTATION DATE: 11/11/181125 SHINGLE BOLT CUTTER: SANTY 11/11/181125 RPT#: [id number] DC DATE: STATUS: ADM IN [facility] [address] [place] [address] END OF REPORT
[2018-11-11 12:23] VITALS: BP 124/77
--- NOTE | 2018-11-11 13:55 | EC ---
PATIENT:CHRISTIAN GRAF DATE OF SERVICE: 11/01/18 SEX: M MEDICAL RECORD: [id number] DATE OF : 31 LOCATION:[facility] AGE OF PATIENT: 83 ADMISSION DATE: 11/01/18 REFERRING PHYSICIAN: INTERPRETING PHYSICIAN: BRITTANY LAN MD ECHOCARDIOGRAM REPORT ECHO CHARGES 4 ECHO COMPLETE Date: 11/02/18 CLINICAL DIAGNOSIS: CHF ECHOCARDIOGRAPHIC MEASUREMENTS (adult normal given) AC root (d.<3.7cm) 0 cm LV Septum d (<1.2 cm> 0 cm Valve Excursion 0 cm LV Septum (systole) 0 cm Left Atria (s.<4.0cm> 0 cm LVPW d(<1.2cm) 0 cm RV (d.<2.3cm) 0 cm LVPW (sytole) 0 cm LV diastole(<5.6CM) 0 cm MV E-F(>70mm/sec) 0 cm LV systole 0 cm LVOT Diameter 0 cm MV exc.(>10mm) cm Est.ejection fraction (50-75%) % DOPPLER: LVIT cm/sec A 0 cm/sec E 0 cm/sec LA cm/sec RVSP 32.7 mmHg LVOT 0 cm/sec AOP1/2T m/s Asc. Ao 00 cm/sec RVOT 0 cm/sec RA 0 cm/sec PA 0 cm/sec AV Gradient Peak 0 mmHg AV Mean 0 mmHg AV Area 0 cm MV Gradient Peak 0 mmHg MV Mean 0 mmHg MV Area 0 cm COMMENTS: Laborer/Key Man: Tyson JOSHI Income Auditor: 3 Dr. Song TAPE# PACS Pericardial Effusion N DATE OF SERVICE: This is a 2D, color flow, limited study. Grossly LVH appears present. LV internal dimension is normal. Wall motion is normal. EF is greater than or equal to 55%. Aortic valve has good valve excursion via 2D. Left atrium grossly appears normal. Mitral valve has good valve excursion and mild MR. Right-sided chambers are grossly normal. Mild TR. PA pressure is estimated at 32 mmHg via the continuity equation. ECHOCARDIOGRAM REPORT [id number] CHRISTIAN GRAF TRANSINT:[id number] Voice Confirmation ID: [id number] DOCUMENT ID: [id number] BRITTANY LAN MD at 1641 CC: [id number] DICTATION DATE: 11/02/18 1532 LANDSCAPER HELPER: 11/03/18 0027 ADM IN [facility] [address] [facility]
[2018-11-11 16:35] VITALS: BP 128/80
--- NOTE | 2018-11-11 19:45 | NUR ---
SITTING UP IN BED TALKING TO SON. ALERT AND ORIENTED TO SELF. CONFUSED. BED ALARM IN USE FOR PT SAFETY. STATES HE IS STILL HAVING DIFF SWALLOWING. CAMPO. RESP EVEN AND NONLABORED. PICC LINE NOTED TO RUE IS SALINE LOCKED. DENIES PAIN. NO DISTRESS. SR ELEVATED X2. CL IN REACH.
[2018-11-11 20:00] VITALS: BP 160/77
--- NOTE | 2018-11-12 02:37 | NUR ---
HAS SLEPT WELL SO FAR THIS SHIFT. NO DISTRESS. CL IN REACH. BED ALARM ON.
[2018-11-12 04:00] VITALS: BP 161/74
[2018-11-12 06:02] LABS: ALBUMIN 1.5 g/dL (3.4-5.0); ALKALINE PHOSPHATASE 95 U/L (46-116); ALT (SGPT) 20 U/L (10-68); BILIRUBIN - TOTAL 0.46 mg/dL (0.2-1.3); CALC OSMOLALITY 288 mosm/kg (275-300); CARBON DIOXIDE 28.3 mmol/L (21.0-32.0); CHLORIDE - SERUM 105 mmol/L (98-107); CREATININE - SERUM 0.7 mg/dL (0.6-1.3); GLUCOSE 201 mg/dL (74-106); MAGNESIUM - SERUM 1.9 mg/dL (1.8-2.4); PHOSPHOROUS 2.6 mg/dL (2.5-4.9); POTASSIUM - SERUM 3.1 mmol/L (3.5-5.1); PROTEIN - SERUM 5.5 g/dL (6.4-8.2); SODIUM 140 mmol/L (136-145); UREA NITROGEN 24 mg/dL (7-18); eGFR NON AFRICAN AMERICAN > 90 mL/min (90-120)
[2018-11-12 06:36] LABS: BASOPHILS 0.1 % (0-2); EOSINOPHILS 1.6 % (0-7); HEMATOCRIT 32.8 % (42.0-54.0); IMMATURE GRANULOCYTES 1.2 % (0-5); LYMPHOCYTES 9.6 % (15-50); MCH 30.6 pg (26.0-34.0); MCHC 33.5 g/dL (31.0-37.0); MCV 91.4 fL (80.0-100.0); MEAN PLATELET VOLUME 11.3 fL (7.4-10.4); MONOCYTES 3.5 % (2-11); PLATELET COUNT 254 10x3/uL (130-400); RBC 3.59 10x6/uL (4.20-6.10); RDW 14.9 % (11.5-14.5); WBC 12.1 10x3/uL (4.8-10.8)
--- NOTE | 2018-11-12 07:39 | NUR ---
AWAKE AND ALERT. ORIENTED TO SELF. ATTEMPTS TO REORIENT WITHOUT SUCCESS. LUNGS ARE CLEAR BUT DIMINISHED. NON PRODUCTIVE COUGH NOTED. SKIN IS INTACT WITH EDEMA NOTED TO ALL EXTREMETIES. ARMS ARE WEEPING SOME THIS AM. LEGS HAVE SOME SCALY AREAS NOTED ON LEFT AND EDEMA NOTED. PICC TO RIGHT UPPER ARM IS PATENT WITHOUT REDNESS AT INSERTION SITE. RIGGINS PATENT WITH CLEAR YELOW URINE. DENIES NEEDS.
[2018-11-12 08:24] VITALS: BP 153/84
--- NOTE | 2018-11-12 10:30 | NUR ---
ATE OVER HALF OF BREAKFAST. INCONTINENT OF STOOL WHILE UP IN CHIAR AT BEDSIDE. SKIN CARE PER STAFF. REPOSITIONED IN BED FOR COMFORT. BLOOD DRAWN FROM PICC AND SENT TO LAB.
[2018-11-12 11:54] VITALS: BP 135/83
--- NOTE | 2018-11-12 12:00 | NUR ---
FSBS 178. GIVEN 2 UNITS REGULAR SUBQ PER SS. DENIES NEEDS.
--- NOTE | 2018-11-12 13:39 | NUR ---
RIGGINS D/C WITH TIP INTACT WITHOUT DIFFICULTY. DENIES NEEDS.
--- NOTE | 2018-11-12 15:37 | NUR ---
OT NOTE: PT COMPLETED BED MOB AND SIT TO STAND WITH MOD A. PT COMPLETED HYGIENE TASKS WITH MAX A. PT VERY MOTIVATED TO INCREASE FUNCTIONAL I. PTS AT BEDSIDE. THANK YOU, PETER DOS SANTOS
[2018-11-12 15:45] VITALS: BP 122/66
--- NOTE | 2018-11-12 17:00 | NUR ---
FSBS 176. GIVEN 2 UNITS REGUALR SUBQ PER SS. DENIES NEEDS. UNABLE TO VOID AT THIS TIME.
--- NOTE | 2018-11-12 19:32 | NUR ---
ATE ABOUT 25% OF MEAL. AT BEDSIDE. UNABLE TO VOID AT THIS TIME. STATED HE HAD NO SENSATION OF NEED TO VOID. WILL MONITOR. NO CHANGES NOTED.
[2018-11-12 20:00] VITALS: BP 166/80
[2018-11-13] VITALS: BP 109/54
--- NOTE | 2018-11-13 07:21 | MORECARE ---
CASE MANAGEMENT DISCHARGE SUMMARY PATIENT: CHRISTIAN GRAF UNIT: [id number] ADM DATE: 11/01/18 AGE: 83 : 33 SEX: M ROOM/BED: D.2207 AUTHOR: ASHELY MARIE PHYSICIAN: REFERRING PHYSICIAN: ROSEANNE BALDERAS MD DATE OF SERVICE: 11/13/18 Discharge Plan Patient Name: CHRISTIAN GRAF Facility: [facility]:[place] : 1935 Planned Disposition: Nursing Home Facility Anticipated Discharge Date: Discharge Date: Expected LOS: Initial Reviewer: [email or web address] Initial Review Date: 11/01/2018 Generated: 11/13/18 8:20 am Comments DCP- Discharge Planning Updated by [email or web address]: Sherice Petty on 11/11/18 10:[address] Patient did not want to go back to [facility] he stated that "they froze me to " patient and would like to go to [facility] if he could be accepted, referral sent DCP- Discharge Planning Updated by [id number]: Una Wolf on 11/01/18 6:[address] Patient Name: CHRISTIAN GRAF Admission Status: ER Accout number: [id number] Admission Date: 11-01-2018 : 1935 Admission Diagnosis:SEPSIS, UNSPECIFIED ORGANISM Attending: ROSEANNE BALDERAS Current LOS: 1 Anticipated DC Date: Planned Disposition: Nursing Home Facility Primary Insurance: MEDICARE A & B Discharge Planning Comments: CM met with patient's spouse (MARLEY) at bedside after explaining CM role and obtaining verbal consent. Patient has been at [facility] for Rehab was suppose to discharge from there Nov 11. plans to return there upon discharge. CM discussed availability / needs of home health and medical equipment. Spouse is uncertain of discharge needs at this time. CM will continue to follow and assist as needed with discharge planning / needs. Assistant District Attorney: Una Wolf Last DP export: 11/11/18 10:26 am Patient Name: CHRISTIAN GRAF Page [id number] at 0721 All edits/amendments must be made on the electronic document DICTATION DATE: 11/13/18719 MANAGER GAME: DM 11/13/18719 RPT#: [id number] DC DATE: STATUS: ADM IN [facility] [address] [place] [address] END OF REPORT
[2018-11-13 09:20] VITALS: BP 124/80
--- NOTE | 2018-11-13 11:41 | NUR ---
OT NOTE: BED MOB TO INCLUDE ROLLING FROM SIDE TO SIDE WITH MOD ASSIST; SUPINE TO SIT WITH MAX ASSIST; STATIC SITTING ON EOB WITH SBA X 5 MIN; UE/LE AROM EXS WITH MODERATE REST BREAKS. UNABLE TO PERFORM AROM WITH R SHOULDER. MAX ASSIST X 2 FOR TRANSFER FROM BED TO CHAIR. SET UP BREAKFAST TRAY AND PT WAS ABLE TO FEED SELF WITH SET UP USING L HAND. ENCOURAGED PT TO PERFORM ALL FEEDING WITHOUT ASSIST FROM . REQUIRES INCREASED TIME BUT PT ABLE TO FEED SELF WITH L HAND. RAFIQ CRUZ, OTR/L
[2018-11-13 12:24] VITALS: BP 137/44
--- NOTE | 2018-11-13 12:48 | NUR ---
NUTRITION F/U PT TOLERATING REG [facility] SOFT DIET WITH NECTAR THICK LIQUIDS. ~50% INTAKE RECENT MEALS. WILL CONTINUE TO PROVIDE DIET, MONITOR PO INTAKE. RD FOLLOWING
--- NOTE | 2018-11-13 15:05 | MORECARE ---
CASE MANAGEMENT DISCHARGE SUMMARY PATIENT: CHRISTIAN GRAF UNIT: [id number] ADM DATE: 11/01/18 AGE: 83 : 33 SEX: M ROOM/BED: D.2207 AUTHOR: ASHELY MARIE PHYSICIAN: REFERRING PHYSICIAN: ROSEANNE BALDERAS MD DATE OF SERVICE: 11/13/18 Discharge Plan Patient Name: CHRISTIAN GRAF Facility: [facility]:[place] : 1935 Planned Disposition: Residential Facility Anticipated Discharge Date: Discharge Date: Expected LOS: Initial Reviewer: [email or web address] Initial Review Date: 11/01/2018 Generated: 11/13/18 4:04 pm Comments DCP- Discharge Planning Updated by [email or web address]: Sherice Petty on 11/11/18 10:[address] Patient did not want to go back to [facility] he stated that "they froze me to " patient and would like to go to [facility] if he could be accepted, referral sent DCP- Discharge Planning Updated by [id number]: Una Wolf on 11/01/18 6:[address] Patient Name: CHRISTIAN GRAF Admission Status: ER Accout number: [id number] Admission Date: 11-01-2018 : 1935 Admission Diagnosis:SEPSIS, UNSPECIFIED ORGANISM Attending: ROSEANNE BALDERAS Current LOS: 1 Anticipated DC Date: Planned Disposition: Residential Facility Primary Insurance: MEDICARE A & B Discharge Planning Comments: CM met with patient's spouse (MARLEY) at bedside after explaining CM role and obtaining verbal consent. Patient has been at [facility] for Rehab was suppose to discharge from there Nov 11. plans to return there upon discharge. CM discussed availability / needs of home health and medical equipment. Spouse is uncertain of discharge needs at this time. CM will continue to follow and assist as needed with discharge planning / needs. Rubber Stamp Die Inspector: Una Wolf Last DP export: 11/13/18 6:21 am Patient Name: CHRISTIAN GRAF Page 54464 at 1505 All edits/amendments must be made on the electronic document DICTATION DATE: 11/13/18 1504 JACKER FEEDER: DM 11/13/18 1504 RPT#: [id number] DC DATE: STATUS: ADM IN [facility] [address] [place] [address] END OF REPORT
--- NOTE | 2018-11-13 15:14 | MORECARE ---
CASE MANAGEMENT DISCHARGE SUMMARY PATIENT: CHRISTIAN GRAF UNIT: [id number] ADM DATE: 11/01/18 AGE: 83 : 33 SEX: M ROOM/BED: D.2207 AUTHOR: CYNTHIA,DOC PHYSICIAN: REFERRING PHYSICIAN: ROSEANNE BALDERAS MD DATE OF SERVICE: 11/13/18 Discharge Plan Patient Name: CHRISTIAN GRAF Facility: [facility]:[place] : 1935 Planned Disposition: Fdc Facility Anticipated Discharge Date: Discharge Date: Expected LOS: Initial Reviewer: [id number] Initial Review Date: 11/01/2018 Generated: 11/13/18 4:13 pm Comments DCP- Discharge Planning Updated by [email or web address]: Sherice Petty on 11/13/18 2:[address] PATIENT IS BEING DISCHARGING TO INPATIENT REHAB AT [facility], I CALLED HIS TO LET HER KNOW ABOUT HIM BEING ACCEPTED, IMM EXPLAINED OVER THE PHONE WITH HER. WILL AWAIT FOR ROOM NUMBER. CM WILL CONTINUE TO FOLLOW AND ASSIST WITH DC PLANNING NEEDED DCP- Discharge Planning Updated by [email or web address]: Sherice Petty on 11/11/18 10:[address] Patient did not want to go back to [facility] he stated that "they froze me to " patient and would like to go to [facility] if he could be accepted, referral sent DCP- Discharge Planning Updated by [email or web address]: Una Wolf on 11/01/18 6:[address] Patient Name: CHRISTIAN GRAF Admission Status: ER Accout number: [id number] Admission Date: 11-01-2018 : 1935 Admission Diagnosis:SEPSIS, UNSPECIFIED ORGANISM Attending: ROSEANNE BALDERAS Current LOS: 1 Anticipated DC Date: Planned Disposition: Fdc Facility Primary Insurance: MEDICARE A & B Discharge Planning Comments: CM met with patient's spouse (MARLEY) at bedside after explaining CM role and obtaining verbal consent. Patient has been at [facility] for Rehab was suppose to discharge from there Nov 11. plans to return there upon discharge. CM discussed availability / needs of home health and medical equipment. Spouse is uncertain of discharge needs at this time. CM will continue to follow and assist as needed with discharge planning / needs. Commodity Broker: Una Landers DP export: 11/13/18 2:05 pm Patient Name: CHRISTIAN GRFA Page [phone] at 1514 All edits/amendments must be made on the electronic document DICTATION DATE: 11/13/181512 RIGGING UP MAN: SANTY 11/13/181512 RPT#: [id number] DC DATE: STATUS: ADM IN [facility] [address] [place] [address] END OF REPORT
--- NOTE | 2018-11-13 17:23 | NUR ---
OT NOTE: PT COMPLETED ADL MOB WITH CGA.PT COMPLETED SIT TO STAND WITH MIN A. PT COMPLETED HYGIENE TASK WITH MOD/MAX . PT COMPLETED UE AROM AXS. THANK YOU, PETER DOS SANTOS
--- NOTE | 2018-11-13 17:25 | NUR ---
CALLED TO DC PICC LINE. DR. BALDERAS CALLED FOR ORDER TO DC LINE. DR BALDERAS GAVE THE ORDER FOR DC. VASCULAR NURSE HAD CHARTED LINE IS 47CM LONG AT TIME OF INSERTION. PROCEDURE EXPLAINED TO PT AND FAMILY. HANDS WASHED AND CLEAN GLOVES DONNED. PICC LINE IS IN R UPPER ARM. NO SIGNS OF INFECTION AT SITE. PT PLACED IN SUPINE POSITION WITH R ARM AT 45 DEGREES FROM BODY. DRESSING REMOVED WITH SAFETY GUARD. NO SUTURES. SITE CLEANED WITH CHLORA-PREP CLEANSER. PT INSTRUCTED TO TAKE A DEEP BREATH HOLD AND BEAR DOWN. CATHETER REMOVED SLOWLY AT 1 CM INCREMENTS. CATHETER REMOVED WITH TIP INTACT AT 47 CMS. NO SIGNS OF INFECTION ON TIP. PRESSURE HELD FOR 5 MINS. BETADINE OINT APPLIED WITH 4X4 AND TEGADERM. PT AND FAMILY INSTRUCTED TO KEEP DRESSING CLEAND AND DRY AND TO LOOK FOR SIGNS OF INFECTION.
--- NOTE | 2018-11-15 07:24 | MORECARE ---
CASE MANAGEMENT DISCHARGE SUMMARY PATIENT: CHRISTIAN GRAF UNIT: [id number] ADM DATE: 11/01/18 AGE: 83 : 33 SEX: M ROOM/BED: D.2207 AUTHOR: ASHELY MARIE PHYSICIAN: REFERRING PHYSICIAN: ROSEANNE BALDERAS MD DATE OF SERVICE: 11/15/18 Discharge Plan Patient Name: CHRISTIAN GRAF Facility: [facility]:[place] : 1935 Planned Disposition: Long Term Facility Anticipated Discharge Date: Discharge Date: 11/13/2018 Expected LOS: 0 Initial Reviewer: [email or web address] Initial Review Date: 11/01/2018 Generated: 11/15/18 8:23 am Comments DCP- Discharge Planning Updated by [email or web address]: Sherice Petty on 11/13/18 2:[address] PATIENT IS BEING DISCHARGING TO INPATIENT REHAB AT [facility] AT [facility], I CALLED HIS TO LET HER KNOW ABOUT HIM BEING ACCEPTED, IMM EXPLAINED OVER THE PHONE WITH HER. WILL AWAIT FOR ROOM NUMBER. CM WILL CONTINUE TO FOLLOW AND ASSIST WITH DC PLANNING NEEDED DCP- Discharge Planning Updated by [id number]: Sherice Petty on 11/11/18 10:[address] Patient did not want to go back to [facility] he stated that "they froze me to " patient and would like to go to [facility] if he could be accepted, referral sent DCP- Discharge Planning Updated by [email or web address]: Una Wolf on 11/01/18 6:[address] Patient Name: CHRISTIAN GRAF Admission Status: ER Accout number: [id number] Admission Date: 11-01-2018 : 1935 Admission Diagnosis:SEPSIS, UNSPECIFIED ORGANISM Attending: ROSEANNE BALDERAS Current LOS: 1 Anticipated DC Date: Planned Disposition: Long Term Facility Primary Insurance: MEDICARE A & B Discharge Planning Comments: CM met with patient's spouse (MARLEY) at bedside after explaining CM role and obtaining verbal consent. Patient has been at [facility] for Rehab was suppose to discharge from there Nov 11. plans to return there upon discharge. CM discussed availability / needs of home health and medical equipment. Spouse is uncertain of discharge needs at this time. CM will continue to follow and assist as needed with discharge planning / needs. Rigging Engineer: Una Wolf Coverage Notice Reviewer: [email or web address] Josefa Petty Notice Issued Date-Time: 11/13/2018 14:00 Notice Type: IM Discharge Notice Notice Delivered To: Family Member Relationship to Patient: Spouse [employer]pper [employer] Name: MRS ELDRIDGE VIA PHONE Delivery Method: HAND - Hand Delivered Kary Days: Prior Verbal Notification: Recipient Understood Notice: Yes Recipient Signature: Yes Med Rec Note Co-signed by Attending: Coverage Notice Comment: Last DP export: 11/13/18 2:14 pm Patient Name: CHRISTIAN GRAF Page [id number] at 0724 All edits/amendments must be made on the electronic document DICTATION DATE: 11/15/18722 TUBE MOLDER FIBERGLASS: SANTY 11/15/18722 RPT#: [id number] DC DATE:11/13/18 STATUS: DIS IN [facility] [address] [place] [address] END OF REPORT
== END 2018-11-13 18:02 | DRG 871 ==
LOC: D.ER 02:29 → D.ICU 03:37 → D.MS 11-09 16:03
PROVIDERS: Family Medicine; Internal Medicine Pulmonary Disease; Urology; ADMIT Family Medicine; ATTEND Family Medicine
PROC: 0TCB8ZZ Extirpation of Matter from Bladder, Via Natural or Artificial Opening Endoscopic (ICD-10-PCS; principal; 2018-11-01 17:22)
PROC: 05HY33Z Insertion of Infusion Device into Upper Vein, Percutaneous Approach (ICD-10-PCS; 2018-11-06)
DX: A41.9 Sepsis, unspecified organism (principal); J18.1 Lobar pneumonia, unspecified organism; G93.41 Metabolic encephalopathy; E87.2 Acidosis; E46 Unspecified protein-calorie malnutrition; I10 Essential (primary) hypertension; K21.9 Gastro-esophageal reflux disease without esophagitis; I48.91 Unspecified atrial fibrillation; E11.65 Type 2 diabetes mellitus with hyperglycemia; D64.9 Anemia, unspecified; K57.90 Diverticulosis of intestine, part unspecified, without perforation or abscess without bleeding

== ENCOUNTER 2018-12-23 19:14 | Inpatient (IN) | payer MEDICARE, OTHER ==
[~2018-12-23] VITALS: Ht 177.8 cm; Wt 94.1 kg
--- NOTE | ~2018-12-23 | HEMODYNAMI ---
PATIENT:CHRISTIAN GRAF MEDICAL RECORD: [id number] : 31 LOCATION:[facility] D.2109 ADMISSION DATE: 12/24/18 Generatedon:12/24/201818:01 Patient name: CHRISTIAN GRAF Patient #: [id number] SSN: [id number] : 1935 Date of study: 12/24/2018 Page: Of Hemodynamic Procedure Report Patient Data Patient Demographics Procedure consent was obtained First Name: CHRISTIAN Gender: Male Last Name: LESIA : 1935 Patient #: [id number] Age: 83 year(s) Race: SSN: [id number] Additional ID: [id number] Contact details Address: [address] [place] [address] State: [place] City: [place] Zip code: [address] Past Medical History Allergies: No known allergies Admission Admission Data Admission Date: 12/24/2018 Admission Time: 16:04 Arrival Date: 12/24/2018 Arrival Time: 0:00 Admit Source: Emergency Insurance Payor: Medicare, department Private health insurance Room #: D.2109 [facility] #: [id number] Height (in.): 69.69 BSA: 2.2 (m2) Height (cm.): 177 BMI: 33.2 (kg/m2) Weight (lbs.): 229.28 Weight (kg.): 104 Lab Results Lab Result Date: 12/24/2018 Lab Result Time: 4:23 Biochemistry Name Units Result Min Max BUN mg/dl 18 --(---*)-- 7 18 Creatinine mg/dl 1.1 --(--*-)-- 0.6 1.3 CBC Name Units Result Min Max Hematocrit % 33.1 *-(----)-- 42 54 Hemoglobin g/dl 10.8 *-(----)-- 13.5 17.5 Procedure Procedure Types Cath Procedure Diagnostic Procedure C C w/Coronaries FFR/IVUS FFR Initial Sedation Charges Moderate Sedation up to 15 minutes Procedure Description Procedure Date Procedure Date: 12/24/2018 Procedure Start Time: 17:45 Procedure End Time: 17:59 Procedure Staff Name Function Guero Greenfield MD Performing Physician Carmen Denson RT Monitor Jd Brink RT Scrub Jimmy Malcolm RN Nurse Procedure Data Cath Procedure Fluoroscopy Diagnostic fluoroscopy Total fluoroscopy Time: 3.5 time: 3.5 min min Diagnostic fluoroscopy Total fluoroscopy dose: 665 dose: 665 mGy mGy Contrast Material Contrast Material Type Amount (ml) Isovue 300 66 Entry Location Entry Primary Successful Side Size Upsize Upsize Entry Closure Serrano ccessful Closure Location (Fr) 1 (Fr) 2 (Fr) Remarks Device Remarks Radial Right 6 Fr Mechanical artery Short Compression Estimated blood loss: 3 ml Diagnostic catheters Device Type Used For End Catheter Placement DIAGNOSTIC Ryan 110cm 5 Multi-vessel Fr catheter ([id number]) Angiography Procedure Complications No complications Procedure Medications Medication Administration Route Dosage Oxygen etCO2 Nasal cannula 2 l/min Heparin Flush Bag added to field 2 bags (1000units/500ml NS) 0.9% NaCl I.V. 100 ml/hr Lidocaine 2% added to field 20 Radial Cocktail added to field 1 syringe (Verapamil 2mg/Nitro 400mcg/Heparin 1500units) Fentanyl I.V. 50 mcg Versed I.V. 1 mg Radial Cocktail I.A. 1 syringe (Verapamil 2mg/Nitro 400mcg/Heparin 1500units) Fentanyl I.V. 50 mcg Versed I.V. 1 mg Hemodynamics Rest BSA: 2.2 (m2) O2 Consumption: Estimated: 243.78 (ml/min) O2 Consumption indexed: Estimated:110.81 (ml/min/m) Heart Rate: 63 (bpm) Snapshots Pre Cath Intra NCS Post Cath Vital Signs Time Heart Resp SPO2 etCO2 NIBP Rhythm Pain Sedation Rate (ipm) (%) (mmHg) (mmHg) Status Level (bpm) 17:40:55 62 16 100 30.6 113/64(85) NSR 0 (11) 10(A) , No pain 17:45:03 62 17 100 29.9 108/62(83) NSR 0 (11) 10(A) , No pain 17:49:13 63 16 99 24.3 83/44(59) NSR 0 (11) 9(A) , No pain 17:53:10 68 17 96 23.7 86/58(71) NSR 0 (11) 9(A) , No pain 17:57:10 68 17 96 23.9 104/57(86) NSR 0 (11) 9(A) , No pain 17:58:51 69 17 95 0 104/64(87) NSR 0 (11) 9(A) , No pain Medications Time Medication Route Dose Verified Delivered Reason Notes Effectiveness by by 17:42:42 Oxygen etCO2 2 l/min Guero Marquez Per Nasal Gin Malcolm RN physician cannula 17:42:50 Heparin Flush added 2 bags Guero Marquez used for Bag to Gin Malcolm RN procedure (1000units/500ml field NS) 17:42:59 0.9% NaCl I.V. 100 Guero Marquez Per ml/hr Gin Malcolm RN physician 17:43:11 Lidocaine 2% added 20ml Guero Marquez for local to vial Gin Malcolm RN anesthetic field 17:43:44 Radial Cocktail added 1 Guero Marquez used for (Verapamil to syringe Gin Malcolm RN procedure 2mg/Nitro field 400mcg/Heparin 1500units) 17:43:50 Fentanyl I.V. 50 mcg Guero Marquez for sedation Gin Malcolm RN 17:43:57 Versed I.V. 1 mg Guero Marquez for sedation Gin Malcolm RN 17:45:48 Radial Cocktail I.A. 1 Guero Marquez for (Verapamil syringe Gin Malcolm RN vasodilation 2mg/Nitro 400mcg/Heparin 1500units) 17:46:28 Fentanyl I.V. 50 mcg Guero Marquez for sedation Gin Malcolm RN 17:46:31 Versed I.V. 1 mg Guero Marquez for sedation Gin Malcolm RN Procedure Log Time Note 17:15:20 Jimmy Malcolm RN sent for patient. Start room use. 17:20:50 H&P Date Dictated: 12/24/2018 Within 30 days and on chart.. 17:20:54 Admit Source: Emergency department 17:21:47 ACC Patient presents with Unstable Angina CCS Anginal Class 4--Inability to carry out any physical activity w/o angina. Angina may occur at rest. 17:23:16 ACCPatient has been prescribed/administered the following anti-anginal medication within the last 2 weeks: None 17:23:18 Procedure Status Urgent Heart Cath (IP). 17::27 Time tracking: Regular hours (M-F 7:00 - 5:00) 17::29 Plan of Care:Hemodynamics will remain stable., Cardiac rhythm will remain stable., Comfort level will be maintained., Respiratory function will remain adequate., Patient/ family verbilizes understanding of procedure., Procedure tolerated without complication., Recovers from procedure without complications.. 17:24:06 Lab Result : BUN 18 mg/dl 17:24:06 Lab Result : Creatinine 1.1 mg/dl 17:24:06 Lab Result : Hemoglobin 10.8 g/dl 17:24: Lab Result : Hematocrit 33.1 % 17:24:08 Lab results completed and on chart. 17:24:37 Patient Weight : 229.28 lbs 17:24:41 Patient Height : 69.69 inches 17:25:02 Insurance Payor : Private health insurance, Medicare 17:25:24 Arrival Date: 12/24/2018 12:00:00 AM 17:26:01 Diagnostic Cath Status : Urgent 17::29 Informed consent obtained and on chart 17:26:50 Patient received from Med II to CCL 2 Alert and oriented. Tansferred to table in Supine position. 17:26:51 Warm blankets applied, and loren hugger turned on for patient comfort. 17:26:51 Correct patient and procedure confirmed by team. 17:26:52 ECG and BP/O2 sat monitors applied to patient. 17:26:53 Pre-procedure instructions explained to patient. 17:26:54 Pre-op teaching completed and patient verbalized understanding. 17:26:55 Family in patients room. 17:26:57 Patient NPO since Midnight. 17:39:02 Vital chart was started 17:41:55 Is the patient allergic to Iodine/contrast media? No. 17:41:56 Was the patient premedicated? No 17:42:08 Is patient on blood thinner?No 17:42:15 Patient diabetic? No. 17:42:16 Previous problem with sedation/anesthesia? No ? 17:42:18 Snore? Yes 17:42:19 Sleep apnea? No 17:42:19 Deviated septum? No 17:42:20 Opens mouth fully? Yes 17:42:22 Sticks out tongue? Yes 17:42:25 Airway obstruction? No ? 17:42:28 Dentures? No ? 17:42:42 Oxygen 2 l/min etCO2 Nasal cannula was administered by Jimmy Malcolm RN; Per physician; 17:42:50 Heparin Flush Bag (1000units/500ml NS) 2 bags added to field was administered by Jimmy Malcolm RN; used for procedure; 17:42:59 0.9% NaCl 100 ml/hr I.V. was administered by Jimmy Malcolm RN; Per physician; 17:43:02 Pre procedure: right dorsailis pedis pulse 1+ Palpable, but thready & weak; easily obliterated 17:43:03 Pre procedure: left dorsailis pedis pulse 1+ Palpable, but thready & weak; easily obliterated 17:43:05 Patient pain scale 0/10 ?. 17:43:11 Lidocaine 2% 20ml vial added to field was administered by Jimmy Malcolm RN; for local anesthetic; 17:43:11 IV patent on arrival in left forearm with 0.9% NaCl at [facility]. 17:43:13 Lab results completed and on chart. 17:43:25 Right Radial & Right Groin area was prepped with chlora-prep and draped in sterile fashion 17:43:25 Alarms reviewed by R. N. 17:43:26 Sharps counted by scrub and verified by R.N. 17:43:27 Physician arrived 17:43:28 --------ALL STOP TIME OUT------ 17:43:28 Final Timeout: patient, procedure, and site verified with staff and physician. All members of the team are in agreement. 17:43:30 Right Radial & Right Groin site verified by team. 17:43:39 Fire Safety Assessment: A--An alcohol-based skin anteseptic being used preoperatively., C--Open oxygen or nitrous oxide is being used., D--An ESU, laser, or fiber-optic light is being used. 17:43:43 Physical assessment completed. ASA score P 2 - A patient with mild systemic disease as per Guero Greenfield MD. 17:43:44 Radial Cocktail (Verapamil 2mg/Nitro 400mcg/Heparin 1500units) 1 syringe added to field was administered by Jimmy Malcolm RN; used for procedure; 17:43:50 Fentanyl 50 mcg I.V. was administered by Jimmy Malcolm RN; for sedation; 17:43:51 2) 60-89 Mildly reduced kidney function, and other findings (as for stage 1) point to kidney disease. 17:43:57 Versed 1 mg I.V. was administered by Jimmy Malcolm RN; for sedation; 17:44:03 Maximum allowable contrast dose (3.7 X eGFR X 0.75)186 ml. 17:44:06 Sedation plan: IV Moderate Sedation Medication:Versed, Fentanyl 17:44:10 Use device set Femoral Dx 17:44:11 ACIST Syringe (60384) opened to sterile field. 17:44:11 Bag Decanter (2002S) opened to sterile field. 17:44:12 Medline Cath Pack ([id number]) opened to sterile field. 17:44:13 ACIST Hand Control (41910) opened to sterile field. 17:44:13 ACIST Manifold (67016) opened to sterile field. 17:44:14 Tegaderm 4 x 4 (1626W) opened to sterile field. 17:44:16 EMERALD Guide Wire (670-878) opened to sterile field. 17:44:20 Procedure started. 17:44:20 Full Disclosure recording started 17:45:12 Baseline sample Acquired. 17:45:26 Rhythm: atrial fibrillation 17:45:37 Local anesthetic to right radial artery with Lidocaine 2% by Guero Greenfield MD.INITIAL ACCESS ONLY 17:45:43 A 6 Fr Short sheath was inserted into the Right Radial artery 17:45:48 Radial Cocktail (Verapamil 2mg/Nitro 400mcg/Heparin 1500units) 1 syringe I.A. was administered by Jimmy Malcolm RN; for vasodilation; 17:45:49 A DIAGNOSTIC Ryan 110cm 5 Fr catheter (874654) was advanced over the wire and used for Multi-vessel Angiography. 17:46:28 Fentanyl 50 mcg I.V. was administered by Jimmy Malcolm RN; for sedation; 17:46:31 Versed 1 mg I.V. was administered by Jimmy Malcolm RN; for sedation; 17:48:04 LCA angiography performed. 17:48:07 Injector settings: Ml/sec: 3, Volume: 6, 17:49:02 RCA angiography performed. 17:49:05 Injector settings: Ml/sec: 3, Volume: 6, 17:50:10 Catheter removed. 17:50:51 INFLATOR Merit Van (FK8128) opened to sterile field. 17:50:52 SHEATH 6FR RAIN (4489215) opened to sterile field. 17:52:10 ACCDominant side:Right 17:52:53 GUIDE 6FR XBLAD 3.5 catheter ([id number]) opened to sterile field. 17:53:14 [place] Verrata Plus pressure wire (81530V) opened to sterile field. 17:54:21 ACC Pre-intervention STEPHEN Flow is 3. 17:55:28 6 Fr xblad 3.5 guide catheter was inserted over the wire 17:55:35 FFR/IFR wire advanced. 17:55:38 Baseline FFR 1. 17:55:40 Wire advanced across lesion. 17:55:47 mCirc lesion measured at 0.98 with IFR 17:55:55 Wire removed. 17:56:07 ZEPHYR REGULAR TR BAND (445834) opened to sterile field. 17:56:19 Sheath removed intact; hemostasis achieved with Mechanical Compression to the Right Radial artery. 17:57:19 Procedure ended.(Physican Out) 17:57:34 Fluoroscopy time 03.50 minutes. 17:57:37 Fluoroscopy dose: 665 mGy 17:57:37 Flurop Dose total: 665 17:57:43 Dose Area Product 18970 mGy/cm. 17:58:40 Contrast amount:Isovue 300 66ml. 17:58:41 Sharps counted by scrub and verified by R.N. 17:58:44 Paterson band inflated with 10cc of air. 17:58:45 Insertion/operative site no bleeding no hematoma. 17:58:51 Post procedure rhythm: unchanged. 17:58:54 Estimated blood loss: 3 ml 17:58:55 Post procedure instruction explained to patient.Patient verbalizes understanding. 17:58:56 Patient needs reinforcement of post procedure teaching. 17:59:09 Procedure type changed to Cath procedure, Diagnostic procedure, LHC, LHC w/Coronaries, FFR/IVUS, FFR Initial, Sedation Charges, Moderate Sedation up to 15 minutes 17:59:10 Procedure and supply charges have been captured, reviewed, submitted and are correct. 17:59:14 Procedure Complication : No complications 17:59:16 Vital chart was stopped 17:59:17 See physician's report for complete and final results. 17:59:20 Report given to [facility]. 17:59:22 Patient transfered to [facility] with Stretcher. 17:59:24 Procedure ended. 17:59:24 Full Disclosure recording stopped 17:59:28 End room use (Document Last) Device Usage Item Name Manufacture Quantity Catalog Hospital Part Current Minima l Lot# / Number Charge Number Stock Stock Serial# Code ACIST Acist 1 60958 839044 451997 539559 20 Syringe Medical (59719) Systems Inc Bag Microtek 1 2001S 780332 03884 739297 5 Decanter Medical Inc. () Medline Medline 1 [id number] 864451 39549 754000 5 Cath Pack ([id number]) ACIST Hand Acist 1 87196 100083 323830 239650 5 Control Medical (64273) Systems Inc ACIST Acist 1 11259 302856 610717 960660 5 Manifold Medical (65860) Systems Inc Tegaderm 4 3M 1 1626W 445829 821974 149702 5 x 4 (1626W) EMERALD Cardinal 1 502-455 591803 788420 906313 5 Guide Wire Health (502-455) DIAGNOSTIC Terumo 1 40-5013 213634 356390 393409 5 Ryan 110cm 5 Fr catheter (780126) INFLATOR Merit 1 NG4460 465856 237041 179767 15 [facility] BasixCompak (KM1192) SHEATH 6FR Cardinal 1 1044059 620106 5077415 893352 5 Knowrom Health (9238598) GUIDE 6FR Cardinal 1 88796367 408090 621484 200224 10 XBLAD 3.5 Health catheter (70445566) [place] 1 30251W 978012 [id number] 072654 5 Verrata Plus pressure wire (13281G) ZEPHYR Cardinal 1 436054 799064 3641871 706363 5 REGULAR TR Health BAND (406374) Signature Audit Durand Stage Time Signature Unsigned Intra-Procedure 12/24/2018 Carmen Denson 6:01:22 PM RT(R) Signatures Performing Physician : Signature : Guero Greenfield MD Date : Time : Monitor : Carmen Denson RT Signature : Date : Time : Nurse : Jimmy Malcolm RN Signature : Date : Time : [id number] [place] [address]
[~2018-12-23 19:14] MED LIST changes: -CALCIUM 500 +1 EAC3; +CALCIUM 600 +1 EAC3 PO; +FUROSEMIDE40 MG PO; +GLUCOTROL 5 MG T5 MG PO; +K-DUR20 MEQ PO
[2018-12-23 19:57] LABS: BASOPHILS 0.4 % (0-2); EOSINOPHILS 2.6 % (0-7); HEMATOCRIT 34.4 % (42.0-54.0); HEMOGLOBIN 11.3 g/dL (13.5-17.5); IMMATURE GRANULOCYTES 0.6 % (0-5); LYMPHOCYTES 10.5 % (15-50); MCH 30.6 pg (26.0-34.0); MCHC 32.8 g/dL (31.0-37.0); MCV 93.2 fL (80.0-100.0); MEAN PLATELET VOLUME 9.9 fL (7.4-10.4); MONOCYTES 5.7 % (2-11); NEUTROPHILS 80.2 % (40-80); RBC 3.69 10x6/uL (4.20-6.10); RDW 15.1 % (11.5-14.5)
[2018-12-23 19:58] LABS: PLATELET COUNT 174 10x3/uL (130-400)
[2018-12-23 20:05] LABS: INR 1.1 (0.85-1.17); PROTIME 13.7 SECONDS (11.6-15.0)
[2018-12-23 20:06] LABS: APTT 32.9 SECONDS (22.8-39.4)
[2018-12-23 20:14] LABS: ALBUMIN 2.4 g/dL (3.4-5.0); ALKALINE PHOSPHATASE 57 U/L (46-116); ALT (SGPT) 20 U/L (10-68); BILIRUBIN - TOTAL 0.34 mg/dL (0.2-1.3); CALC OSMOLALITY 283 mosm/kg (275-300); CALCIUM 8.2 mg/dL (8.5-10.1); CARBON DIOXIDE 28.9 mmol/L (21.0-32.0); CHLORIDE - SERUM 102 mmol/L (98-107); CREATININE - SERUM 1.1 mg/dL (0.6-1.3); GLUCOSE 178 mg/dL (74-106); POTASSIUM - SERUM 3.8 mmol/L (3.5-5.1); PROTEIN - SERUM 6.2 g/dL (6.4-8.2); SODIUM 139 mmol/L (136-145); UREA NITROGEN 18 mg/dL (7-18); eGFR NON AFRICAN AMERICAN 67 mL/min (90-120)
[2018-12-23 20:25] LABS: CKMB 1.2 U/L (0.0-3.6); CREATINE KINASE 39 UL (21-232)
[2018-12-23 20:26] LABS: TROPONIN-I < 0.017 ng/mL (0.000-0.060)
[2018-12-23 20:30] VITALS: BP 139/75
--- NOTE | 2018-12-23 20:30 | NUR ---
PT RESTING ON BED. PT FAMILY AT BEDSIDE. NO S/S OF ACUTE DISTRESS NOTED AT THIS TIME.
[2018-12-23 21:30] VITALS: BP 158/65
[2018-12-23 22:15] VITALS: BP 162/56
--- NOTE | 2018-12-23 22:15 | NUR ---
PT FAMILY NO LONGER AT BEDSIDE. PT AWAKE AND ALERT. NO S/S OF ACUTE DISTRESS NOTED.
--- NOTE | 2018-12-23 23:15 | NUR ---
PT ASSISTED WITH URINAL. URINE SPECIMEN SENT TO LAB.
[2018-12-23 23:22] LABS: APPEARANCE CLEAR (CLEAR); BILIRUBIN NEGATIVE (NEGATIVE); COLOR YELLOW (YELLOW); GLUCOSE 250 mg/dL (NEGATIVE); KETONE NEGATIVE (NEGATIVE); NITRITE NEGATIVE (NEGATIVE); PROTEIN NEGATIVE (NEGATIVE); SPECIFIC GRAVITY 1.015 (1.005-1.020); UROBILINOGEN NORMAL (NORMAL)
[2018-12-23 23:31] LABS: UDS - AMPHET NEGATIVE QUAL (NEGATIVE); UDS - BARB NEGATIVE QUAL (NEGATIVE); UDS - BENZO NEGATIVE QUAL (NEGATIVE); UDS - COCAINE NEGATIVE QUAL (NEGATIVE); UDS - OPIATE NEGATIVE QUAL (NEGATIVE); UDS - PCP NEGATIVE QUAL (NEGATIVE); UDS - THC NEGATIVE QUAL (NEGATIVE)
--- NOTE | 2018-12-24 00:10 | NUR ---
PT RECIEVED VIA STRETCHER, A/O X4, MARSHALL, STATES HE CANT STAND TO WEAR HEARING AIDES, LEFT PIV INTACT AND SL, WEARING BRIEF, USES URINAL, NO C/O @ THIS TIME
[2018-12-24 00:29] VITALS: BP 114/54; BMI 32.9
[2018-12-24 04:30] VITALS: BP 109/52
[2018-12-24 04:53] LABS: BASOPHILS 0.6 % (0-2); EOSINOPHILS 1.9 % (0-7); HEMATOCRIT 33.1 % (42.0-54.0); HEMOGLOBIN 10.8 g/dL (13.5-17.5); IMMATURE GRANULOCYTES 0.4 % (0-5); MCH 30.3 pg (26.0-34.0); MCHC 32.6 g/dL (31.0-37.0); MCV 92.7 fL (80.0-100.0); MEAN PLATELET VOLUME 9.9 fL (7.4-10.4); MONOCYTES 8.3 % (2-11); NEUTROPHILS 68.8 % (40-80); PLATELET COUNT 185 10x3/uL (130-400); RBC 3.57 10x6/uL (4.20-6.10); RDW 15.1 % (11.5-14.5); WBC 5.4 10x3/uL (4.8-10.8)
[2018-12-24 05:22] LABS: ALBUMIN 2.3 g/dL (3.4-5.0); ALKALINE PHOSPHATASE 55 U/L (46-116); ALT (SGPT) 19 U/L (10-68); BILIRUBIN - TOTAL 0.28 mg/dL (0.2-1.3); CALC OSMOLALITY 285 mosm/kg (275-300); CALCIUM 8.2 mg/dL (8.5-10.1); CARBON DIOXIDE 29.6 mmol/L (21.0-32.0); CHLORIDE - SERUM 105 mmol/L (98-107); CKMB 1.3 U/L (0.0-3.6); CREATINE KINASE 36 UL (21-232); CREATININE - SERUM 1.1 mg/dL (0.6-1.3); GLUCOSE 147 mg/dL (74-106); POTASSIUM - SERUM 3.6 mmol/L (3.5-5.1); SODIUM 141 mmol/L (136-145); UREA NITROGEN 18 mg/dL (7-18); eGFR NON AFRICAN AMERICAN 67 mL/min (90-120)
[2018-12-24 05:32] LABS: TROPONIN-I < 0.017 ng/mL (0.000-0.060)
--- NOTE | 2018-12-24 07:31 | NUR ---
REPORT RECEIVED. WILL CONTINUE WITH POC. PT CURRENTLY LYING SUPINE. CALL LIGHT W/I REACH. RR EVEN AND UNLABORED ON RA. L.FOR PIV IS SALINE LOCKED. NO S/S OF DISTRESS NOTED. PT DENIES ANY NEEDS. WILL CTM.
[2018-12-24 10:03] VITALS: BP 118/59
--- NOTE | 2018-12-24 10:10 | CN ---
PATIENT NAME:CHRISTIAN GRAF MEDICAL RECORD: [id number] : 31 LOCATION:D. D.2109 ADMIT DATE: 12/23/18 ACCOUNT: [id number] CONSULTING PHYSICIAN: FATOUMATA REED MD REFERRING PHYSICIAN: ROSEANNE BALDERAS MD DATE OF CONSULTATION: 12/24/2018 DIAGNOSES: 1. Unstable angina. 2. Syncope. 3. New onset atrial fibrillation. 4. Hypertension. 5. Hyperlipidemia. 6. Insulin-dependent diabetes. 7. Coronary artery disease. HISTORY OF PRESENT ILLNESS: Mr. Graf has had his third presentation this year for syncope. He was at rest last evening, developed chest pain, chest pressure, and then had an episode of syncope. He did this in August as well as in September. He was in sinus rhythm the last 2 times, he is now in atrial fibrillation with controlled ventricular response. He is on metoprolol for blood pressure. This is the first time he has had a dysrhythmia in association with this. He has no acute ST-T abnormalities and troponin is normal; however, he has been having episodes of chest pain and chest pressure, not associated with the syncope as well. He does have a history of coronary artery disease in the distant past, no recent intervention. He has risk factors of hypertension, hyperlipidemia, and diabetes. PHYSICAL EXAMINATION: CONSTITUTIONAL/GENERAL APPEARANCE: Well nourished, well developed, appears stated age. EYES: Lids and conjunctivae noninjected. No discharge. No pallor. ENT: Lips within normal limit. No cyanosis. No pallor. NECK: Carotid arteries, bilateral normal upstroke. No bruits. No thrills. No jugular venous pressure or distention. CERVICAL LYMPH NODES: Nontender. Nonenlarged. THYROID: Not enlarged. No nodules. CARDIOVASCULAR: Irregularly irregular with atrial fibrillation, rates in the 80s. RESPIRATORY: Respiratory effort, unlabored. Normal curvature. No thoracic deformity. No chest wall tenderness. Percussion, resonant. Auscultation, clear. No wheezes, no rales, no rhonchi. ABDOMEN: Soft, nondistended, nontender. No abdominal pain, no vomiting and normal appetite. MUSCULOSKELETAL: No joint tenderness, normal gait, normal tone. SKIN: Warm and dry. OVERALL IMPRESSION: 1. Atrial fibrillation. At this time, we will discontinue the metoprolol, put him on sotalol 80 mg b.i.d. 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 He did not take his Pradaxa yesterday or today. 2. Unstable angina. Clearly, he has had increasing episodes of chest pain and chest pressure. He had an episode of chest pressure at rest leading to syncope, which is concerning for a significant cardiac arrhythmia. We will proceed with CONSULT REPORT [id number] CHRISTIAN GRAF coronary angiography as he has a history of known coronary artery disease and now having pain at rest leading to syncope. TRANSINT:[id number] Voice Confirmation ID: [id number] DOCUMENT ID: [id number] FATOUMATA REED MD at 1010 CC: [id number] DICTATION DATE: 12/24/18833 WIRER PASSENGER CAR: 12/24/18 0908 ADM IN [facility] [address] [place] [id number]
[2018-12-24 12:00] VITALS: BP 95/51
[2018-12-24 14:09] VITALS: Ht 177.8 cm; Wt 94.1 kg
--- NOTE | 2018-12-24 17:23 | NUR ---
PT PREOP MEDICATIONS ADMININSTERED PER STEPHEN PERSAUD. PT TRANSFERED TO SWEET PICKLE MAKER. PT DENIES ANY NEEDS. WILL CTM.
--- NOTE | 2018-12-24 18:16 | NUR ---
RECEIVED PT FROM MANAGER MED SURG. PT IS RESTING AT THIS TIME. RIGHT ZEPHER BAND IS C/D/I WITH NO S/S OF HEMATOMA PRESENT. PT DENIES ANY NEEDS. PERIPHERAL PULSES EVEN AND BILATERAL. WILL CTM.
--- NOTE | 2018-12-24 19:40 | NUR ---
REPORT RECIEVED AND ROUNDING COMPLETE. PATIENT IS LAYING IN BED. PATIENT HAD A HEART CATH TODAY. PATIENT HAS A RIGHT RADIAL WRIST BAND ON. NO BLEEDING NOTED. PATIENT HAS A LEFT FOREARM WITH NORMAL SALINE RUNNING AT KVO, PIV HAS NO S/SX OF INFILTRATION OR INFECTION. PATIENT IS ORIENTED X4. PATIENT IS SHOWING NO S/SX OF DISTRESS AT THIS TIME. CALL LIGHT WITHIN REACH AND BED IN LOWEST LOCKED POSITION. PATIENT STATES HE HAS NO NEEDS AT THIS TIME.
[2018-12-24 20:00] VITALS: BP 105/54
--- NOTE | 2018-12-24 21:32 | NUR ---
BOWLING FLOOR DESK CLERK JOSE ASSISTED IN WITHDRAWING 5ML OF AIR OUT OF TBAND RIGHT RADIAL NO BLEEDING NOTED
[2018-12-25 00:30] VITALS: BP 98/56
--- NOTE | 2018-12-25 02:51 | NUR ---
I have reviewed this patient and I concur with the Shift Assessment completed by the Licensed Practical Nurse today this shift.
[2018-12-25 04:30] VITALS: BP 100/40
--- NOTE | 2018-12-25 07:10 | NUR ---
AM ROUNDS- PT IS RESTING COMFORTABLY IN BED WITH EYES CLOSED, BREATHING EVEN AND UNLABORED. NO S/S OF DISTRESS NOTED AT THIS TIME. WILL CTM. PT IS ON ROOM AIR, HAS AN IV TO THE LEFT FOREARM (SALINE LOCKED), POST HEART CATH TO THE RIGHT RADIAL, BEDFAST, HARD OF HEARING, ACHS FINGERSTICK BLOODSUGAR, RUNS CONTROLLED AFIB ON THE MONITOR.
--- NOTE | 2018-12-25 08:34 | HP ---
PATIENT: CHRISTIAN GRAF MEDICAL RECORD: [id number] ACCOUNT: [id number] LOCATION:[address] : [birth year] ADMISSION DATE: 12/24/18 PCP: ROSEANNE BALDERAS MD HISTORY AND PHYSICAL EXAMINATION CHIEF COMPLAINT: Syncope. HISTORY OF PRESENT ILLNESS: This is an 83-year-old white male, who reportedly had multiple syncopal episodes at home. Today, he was sitting in his recliner when he reportedly "passed out." He basically was not responsive to his family. These episodes lasted maybe 10-15 seconds. He also had a syncopal episode about a week ago. He did report some chest tightness following the episodes today. He was brought in for further evaluation of these syncopal episodes. PAST MEDICAL HISTORY: He does have a history of paroxysmal atrial fibrillation. He has diabetes, arthritis, obesity, peripheral neuropathy, remote history of myasthenia gravis. He had a remote history of PE years ago. He was diagnosed with a left lower extremity DVT on 09/17/2018. The patient suffered a fall in August of 2018 when he had a syncopal episode and he suffered a transverse process fracture in his lumbar spine. He spent a good deal of time in jail rehab. Also, after that fall, he was admitted back to [place] with sepsis, most likely from skin infection. PAST SURGICAL HISTORY: Cholecystectomy, inferior vena cava filter. ALLERGIES: PENICILLIN. HOME MEDICATIONS: Include Pradaxa 75 mg once a day, simvastatin 20 mg at bedtime, [place] 5/325 p.r.n. back pain, trazodone 150 mg 1 p.o. at bedtime, calcium carbonate plus vitamin D once a day, furosemide 40 mg twice a day, potassium chloride 20 mEq once a day, sliding scale of Humulin R insulin with a low resistance scale, pioglitazone 30 mg once a day, glipizide 5 mg twice a day. SOCIAL HISTORY: He is . 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 FAMILY HISTORY: Father is . He had renal cell cancer. Mother is , she had pneumonia. HABITS: No tobacco, alcohol, or drugs. REVIEW OF SYSTEMS: GENERAL: No major weight changes. HEENT: No particular sinus or allergy problems. RESPIRATORY: No diagnosis of COPD or asthma. CARDIAC: He has paroxysmal atrial fibrillation. GASTROINTESTINAL: He has occasional heartburn. GENITOURINARY: He had a bladder stone removed from the bladder in the summer of [address] Limon. NEUROLOGIC: No migraines or seizures. PSYCHIATRIC: Denies depression or melancholia. PHYSICAL EXAMINATION: VITAL SIGNS: Temperature 98.1, pulse 83, respirations 15, blood pressure 124/70, O2 sat 97%. HISTORY AND PHYSICAL [id number] CHRISTIAN GRAF GENERAL: He is awake and alert. He has had no further episodes of syncope since he is admitted into the hospital. HEENT: Shows no JVD or bruit. HEART: Irregularly irregular with controlled rate. LUNGS: Fairly clear. ABDOMEN: Soft, obese, nontender. EXTREMITIES: 1+ lower extremity edema. LABORATORY DATA: Urinalysis is normal. Urine drug screen is negative. CBC with white count of 7000, hemoglobin 11.3, hematocrit 34.4, platelets are normal at 174,000. Basic metabolic panel is all normal. Glucose is 178, magnesium 2.0. Liver functions are all normal. Troponin less than 0.017. Albumin is 2.4. Ammonia level is 7. DIAGNOSTIC DATA: Chest x-ray showed no acute process. CT of the head shows no acute process. There is chronic small vessel disease. ASSESSMENT: 1. Syncopal episodes. 2. History of paroxysmal atrial fibrillation. 3. Diabetes. PLAN: He is admitted. Cardiology is consulted. He is on telemetry. Other tests and procedures as warranted. TRANSINT:[id number] Voice Confirmation ID: [id number] DOCUMENT ID: [id number] ROSEANNE BALDERAS MD at 0834 CC: [id number] DICTATION DATE: 12/24/182337 ENVIRONMENTAL FIELD TEAM MEMBER: 12/25/18 0000 ADM IN [facility] [address] [id number]
[2018-12-25 08:35] VITALS: BP 107/63
--- NOTE | 2018-12-25 09:21 | NUR ---
ADMINISTERED MORNING MEDICATION AT THIS TIME, NO TROUBLE SWALLOWING. PT IS ALERT AND ORIENTED X4. RECALLS EPSIDOE OF CONFUSION FROM LAST NIGHT. PROVIDED WITH FRESH DRINK. DENIES ANY OTHER NEEDS AT THIS TIME. WILL CTM.
--- NOTE | 2018-12-25 12:35 | NUR ---
ADMINISTERED INSULIN PER SLIDING SCALE FOR BLOOD SUGAR OF 157. TOLERATED WELL. ASSISTED LUGGAGE MAKER IN CHANGING PT FOR EPISODE OF BOWEL INCONT. LEFT RESTING COMFORTABLY. FAMILY AT BEDSIDE. FAMILY UNDER THE IMPRESSION THAT PT IS GOING HOME TODAY. EXPLAINED THAT CARDIOLOGY HAS TO EXAMINE AND CLEAR PATIENT BEFORE DISCHARGE. WILL CTM.
[2018-12-25 12:45] VITALS: BP 94/55
--- NOTE | 2018-12-25 14:27 | NUR ---
I have reviewed this patient and I concur with the Shift Assessment completed by the Licensed Practical Nurse today this shift.
--- NOTE | 2018-12-25 14:41 | NUR ---
PT IS RESTING COMFORTABLY IN BED, FAMILY AT BEDSIDE. DENIES ANY NEEDS AT THIS TIME. WILL CTM.
[2018-12-25 16:45] VITALS: BP 95/54
--- NOTE | 2018-12-25 18:22 | NUR ---
PT RESTING COMFORTABLY IN BED, LEFT FOR THE NIGHT. PT DENIES ANY NEEDS. WILL CTM.
[2018-12-25 20:54] VITALS: BP 98/53
--- NOTE | 2018-12-25 21:00 | NUR ---
AWAKE,ALERT.NO COMPLAITNS VOICED. RESP EVEN AND UNALBORED. SL TO LFA INTACT WITH NO REDNESS OR EDEMA NOTED. SPLINT INTACT TO RIGHT WRIST. TURNED AND POSITIONED FOR COMFORT. CL IN REACH
[2018-12-26 01:14] VITALS: BP 116/56
[2018-12-26 05:07] VITALS: BP 109/67
--- NOTE | 2018-12-26 07:40 | NUR ---
AM ROUNDS- PT SHOP MANAGER LIGHT, ANSWERED. ASSISTED PT IN USING URINAL IN BED. PT IS RESTING COMFORTABLY DENIES ANY NEEDS AT THIS TIME. BED IN LOWEST POSITION, BED RAILS X2, CALL LIGHT WITHIN REACH. WILL CTM. PT IS ALERT WITH SLIGHT CONFUSION THIS MORNING, PT WAS RE-ORIENTED TO PLACE/TIME THIS MORNING. PT HAS AN IV TO THE LEFT FOREARM (SALINE LOCKED), ON ROOM AIR, BEDFAST, HARD OF HEARING AND RUNS CONTROLLED AFIB ON TELEMETRY.
[2018-12-26 08:47] VITALS: BP 93/46
--- NOTE | 2018-12-26 09:03 | NUR ---
MORNING MEDICATION GIVEN AT THIS TIME, NO TROUBLE SWALLOWING. AIDE AT BEDSIDE COLLECTING MORNING VITALS. DENIES ANY NEEDS AT THIS TIME. PT HAS SLIGHT CONFUSION AT THIS TIME, RE-ORIENTED TO PLACE AND SITUATION. BED IN LOWEST POSITION, BED RAILS X2, CALL LIGHT WITHIN REACH. WILL CTM. PLAN FOR DISCHARGE TODAY, GOING TO CONTACT TO PLAN HOW TO GET PT HOME.
[2018-12-26] MEDS ORDERED: BETAPACE 80 MG80 MG PO (09:16)
--- NOTE | 2018-12-26 11:18 | NUR ---
I have reviewed this patient and I concur with the Shift Assessment completed by the Licensed Practical Nurse today this shift.
[2018-12-26 12:30] VITALS: BP 106/57
--- NOTE | 2018-12-26 12:45 | MORECARE ---
CASE MANAGEMENT DISCHARGE SUMMARY PATIENT: CHRISTIAN GRAF UNIT: [id number] ADM DATE: 12/24/18 AGE: 83 : 33 SEX: M ROOM/BED: D.210 AUTHOR: ASHELY MARIE PHYSICIAN: REFERRING PHYSICIAN: ROSEANNE BALDERAS MD DATE OF SERVICE: 12/26/18 Discharge Plan Patient Name: CHRISTIAN GRAF [facility] [facility] 1935 Planned Disposition: Home with Home Health Anticipated Discharge Date: 12/26/18 Discharge Date: Expected LOS: 2 Initial Reviewer: [email or web address] Initial Review Date: 12/26/2018 Generated: 12/26/18 1:44 pm Coverage Notice Reviewer: [email or web address] Josefa Gonzalez Notice Issued Date-Time: 12/24/2018 9:32 Notice Type: Medicare Outpatient Observation Notice Notice Delivered To: Patient Relationship to Patient: Self Front Line Supervisor Name: Delivery Method: HAND - Hand Delivered Akry Days: Prior Verbal Notification: Recipient Understood Notice: Yes Recipient Signature: Yes Med Rec Note Co-signed by Attending: Coverage Notice Comment: BOLTON DISCUSSED WITH PATIENT, HIS MARLEY AND HIS SISTER IN LAW JOAQUIM, AFTER VERBAL CONSENT OBTAINED FROM PATIENT. PER PATIENTS REQUEST, SIGNED BOLTON. Patient Name: CHRISTIAN GRAF Page [phone] at 1245 All edits/amendments must be made on the electronic document DICTATION DATE: 12/26/18 124 COMMUTATOR OPERATOR: SANTY 12/26/18 1244 RPT#: [id number] DC DATE: STATUS: ADM IN [facility] [address] [place] [address] END OF REPORT
--- NOTE | 2018-12-26 12:52 | MORECARE ---
CASE MANAGEMENT DISCHARGE SUMMARY PATIENT: CHRISTIAN GRAF UNIT: [id number] ADM DATE: 12/24/18 AGE: 83 : 33 SEX: M ROOM/BED: D.2109 AUTHOR: CYNTHIA,DOC PHYSICIAN: REFERRING PHYSICIAN: ROSEANNE BALDERAS MD DATE OF SERVICE: 12/26/18 Discharge Plan Patient Name: CHRISTIAN GRAF Facility: [facility]:[place] : 1935 Planned Disposition: Home with Home Health Anticipated Discharge Date: 12/26/18 Discharge Date: Expected LOS: 2 Initial Reviewer: [id number] Initial Review Date: 12/26/2018 Generated: 12/26/18 1:52 pm DCPIA - Discharge Planning Initial Assessment Updated by [email or web address]: Monty Fried on 12/26/18 12:46 pm * Is the patient Alert and Oriented? Yes * How many steps to enter\exit or inside your home? RAMP * PCP DR. BALDERAS * [facility] * Preadmission Environment Home with Family * ADLs Independent * Equipment Bedside [facility] Bed Hiwot Lift Power Chair or Electric Scooter * Other Equipment [employer] - MEDICAL EQUIPMENT PROVIDER * List name and contact numbers for known caregivers / representatives who currently or will assist patient after discharge: MARLEY GRAF, SPOUSE, * Verbal permission to speak to the caregivers and representatives has been obtained from the patient. Yes * Community resources currently utilized Home Health Private Duty Care * Please name any agencies selected above. [facility]; HOME HEALTH SERVICES 24 HOUR PRIVATE DUTY CARE, PT NOR SPOUSE CAN REMEMBER AGENCY NAME. * Additional services required to return to the preadmission environment? No * Can the patient safely return to the preadmission environment? Yes * Has this patient been hospitalized within the prior 30 days at any hospital? No Coverage Notice Reviewer: [id number] Josefa Maldonado Winston Notice Issued Date-Time: 12/24/2018 9:32 Notice Type: Medicare Outpatient Observation Notice Notice Delivered To: Patient Relationship to Patient: Self Wigs Salesperson Name: Delivery Method: HAND - Hand Delivered Kary Days: Prior Verbal Notification: Recipient Understood Notice: Yes Recipient Signature: Yes Med Rec Note Co-signed by Attending: Coverage Notice Comment: CHE DISCUSSED WITH PATIENT, HIS MARLEY AND HIS SISTER IN LAW JOAQUIM, AFTER VERBAL CONSENT OBTAINED FROM PATIENT. PER PATIENTS REQUEST, SIGNED BOLTON. Last DP export: 12/26/18 11:45 a Patient Name: CHRISTIAN GRAF Page [phone] at 1252 All edits/amendments must be made on the electronic document DICTATION DATE: 12/26/18 125 SUPERVISOR TUBING: SANTY 12/26/18 1252 RPT#: [id number] DC DATE: STATUS: ADM IN [facility] [address] [place] [address] END OF REPORT
--- NOTE | 2018-12-26 13:00 | MORECARE ---
CASE MANAGEMENT DISCHARGE SUMMARY PATIENT: CHRISTIAN GRAF UNIT: [id number] ADM DATE: 12/24/18 AGE: 83 : 33 SEX: M ROOM/BED: D.2106 AUTHOR: ASHELY MARIE PHYSICIAN: REFERRING PHYSICIAN: ROSEANNE BALDERAS MD DATE OF SERVICE: 12/26/18 Discharge Plan Patient Name: CHRISTIAN GRAF Facility: [facility]:[place] : 1935 Planned Disposition: Home with Home Health Anticipated Discharge Date: 12/26/18 Discharge Date: Expected LOS: 2 Initial Reviewer: [email or web address] Initial Review Date: 12/26/2018 Generated: 12/26/18 2:00 pm Comments DCP- Discharge Planning Updated by [email or web address]: Monty Fried on 12/26/18 11:[address] Patient Name: CHRISTIAN GRAF Admission Status: ER Accout number: [id number] Admission Date: 12-24-2018 : 1935 Admission Diagnosis:SYNCOPE AND COLLAPSE Attending: ROSEANNE BALDERAS Current LOS: 2 Anticipated DC Date: 12-26-2018 Planned Disposition: Home with Home Health Primary Insurance: MEDICARE A & B PLANNED EXTERNAL PROVIDER: [facility] Discharge Planning Comments: CM MET WITH PT IN ROOM TO DISCUSS DISCHARGE PLANNING AND NEEDS. PT REPORTS LIVING AT HOME DEPENDENTLY ON SPOUSE AND 24 HOUR CAREGIVERS. PT IS ABLE TO FEED HIMSELF AND AMBULANTES WITH ELECTRIC WHEELCHAIR. PT USES BEDSIDE COMMODE AND TRANSFERS FROM HOSPITAL BED TO ELECTRIC WHEELCHAIR WITH HIWOT LIFT. PT'S MEDICAL EQUIPMENT PROVIDER IS [facility]. PT HAS PERSONAL CARE 24 HOURS PER DAY, CANNOT REMEMBER THE NAME OF PRIVATE DUTY CARE AGENCY. PT HAS HOME HEALTH FOR NURSING AND THERAPY FROM [facility]. CHOICE SIGNED. CM DISCUSSED AVAILABILITY OF HOME HEALTH, REHAB SERVICES AND MEDICAL EQUIPMENT. PT DENIES DISCHARGE NEEDS, AND WILL DISCHARGE HOME WITH SPOUSE. PT WILL TRANSPORT HOME VIA MODIFIED MOBILE ARRANGED BY HIS SPOUSE. . IMPORTANT MESSAGE FROM MEDICARE PROVIDED AND EXPLAINED. CM CALLED [facility], , SPOKE TO SERGIO WHO PLACED PT ON SCHEDULE FOR RESUMPTION OF HOME HEALTH. CM FAXED DISCHARGE INFORMATION TO [facility], . PT AND SPOUSE NOTIFIED IN ROOM. KENNEL ASSISTANT NOTIFIED. Tube Cutter Operator: Monty Corky DCPIA - Discharge Planning Initial Assessment Updated by [email or web address]: Monty Fried on 12/26/18 12:46 pm * Is the patient Alert and Oriented? Yes * How many steps to enter\exit or inside your home? RAMP * PCP DR. BALDERAS * [facility]acy [facility] * Preadmission Environment Home with Family * ADLs Independent * Equipment Bedside [facility] Bed Hiwot Lift Power Chair or Electric Scooter * Other Equipment [employer] - MEDICAL EQUIPMENT PROVIDER * List name and contact numbers for known caregivers / representatives who currently or will assist patient after discharge: MARLEY GRAF, SPOUSE, * Verbal permission to speak to the caregivers and representatives has been obtained from the patient. Yes * Community resources currently utilized Home Health Private Duty Care * Please name any agencies selected above. [facility]; HOME HEALTH SERVICES 24 HOUR PRIVATE DUTY CARE, PT NOR SPOUSE CAN REMEMBER AGENCY NAME. * Additional services required to return to the preadmission environment? No * Can the patient safely return to the preadmission environment? Yes * Has this patient been hospitalized within the prior 30 days at any hospital? No External Providers [facility] Next Contact Date: 12/26/2018 Service Request Date: Service Type: Resolution: Reviewer: Comments: Coverage Notice Reviewer: [id number] Josefa Gonzalez Notice Issued Date-Time: 12/24/2018 9:32 Notice Type: Medicare Outpatient Observation Notice Notice Delivered To: Patient Relationship to Patient: Self Extension Worker Name: Delivery Method: HAND - Hand Delivered Kary Days: Prior Verbal Notification: Recipient Understood Notice: Yes Recipient Signature: Yes Med Rec Note Co-signed by Attending: Coverage Notice Comment: CHE DISCUSSED WITH PATIENT, HIS MARLEY AND HIS SISTER IN LAW MARCH, AFTER VERBAL CONSENT OBTAINED FROM PATIENT. PER PATIENTS REQUEST, SIGNED CHE. Last DP export: 12/26/18 11:52 a Patient Name: CHRISTIAN GRAF Page [phone] at 1300 All edits/amendments must be made on the electronic document DICTATION DATE: 12/26/18 125 CATTLE TESTER: SANTY 12/26/181258 RPT#: [id number] DC DATE: STATUS: ADM IN [facility] [address] [facility] [place] [address] END OF REPORT
--- NOTE | 2018-12-26 13:08 | NUR ---
PER LESIA, PHARMACY IS [facility]. CALLED IN SOTAL[facility] 80MG BID #[phone] WITH 6 REFILLS TO PHARMACY. SPOKE WITH MARIO ALBERTO/PHARMACIST
--- NOTE | 2018-12-26 13:19 | MORECARE ---
CASE MANAGEMENT DISCHARGE SUMMARY PATIENT: CHRISTIAN GRAF UNIT: [id number] ADM DATE: 12/24/18 AGE: 83 : 33 SEX: M ROOM/BED: D.2100 AUTHOR: ASHELY MARIE PHYSICIAN: REFERRING PHYSICIAN: ROSEANNE BALDERAS MD DATE OF SERVICE: 12/26/18 Discharge Plan Patient Name: CHRISTIAN GRAF Facility: [facility]:[place] : 1935 Planned Disposition: Home with Home Health Anticipated Discharge Date: 12/26/18 Discharge Date: Expected LOS: 2 Initial Reviewer: [email or web address] Initial Review Date: 12/26/2018 Generated: 12/26/18 2:18 pm DCP- Discharge Planning Updated by [email or web address]: Monty Fried on 12/26/18 11:[address] Patient Name: CHRISTIAN GRAF Admission Status: ER Accout number: [id number] Admission Date: 12-24-2018 : 1935 Admission Diagnosis:SYNCOPE AND COLLAPSE Attending: ROSEANNE BALDERAS Current LOS: 2 Anticipated DC Date: 12-26-2018 Planned Disposition: Home with Home Health Primary Insurance: MEDICARE A & B PLANNED EXTERNAL PROVIDER: [facility] Discharge Planning Comments: CM MET WITH PT IN ROOM TO DISCUSS DISCHARGE PLANNING AND NEEDS. PT REPORTS LIVING AT HOME DEPENDENTLY ON SPOUSE AND 24 HOUR CAREGIVERS. PT IS ABLE TO FEED HIMSELF AND AMBULANTES WITH ELECTRIC WHEELCHAIR. PT USES BEDSIDE COMMODE AND TRANSFERS FROM HOSPITAL BED TO ELECTRIC WHEELCHAIR WITH HIWOT LIFT. PT'S MEDICAL EQUIPMENT PROVIDER IS Edwin[facility]HAJ[facility]. PT HAS PERSONAL CARE 24 HOURS PER DAY, CANNOT REMEMBER THE NAME OF PRIVATE DUTY CARE AGENCY. PT HAS HOME HEALTH FOR NURSING AND THERAPY FROM [facility]. CHOICE SIGNED. CM DISCUSSED AVAILABILITY OF HOME HEALTH, REHAB SERVICES AND MEDICAL EQUIPMENT. PT DENIES DISCHARGE NEEDS, AND WILL DISCHARGE HOME WITH SPOUSE. PT WILL TRANSPORT HOME VIA MODIFIED MOBILE ARRANGED BY HIS SPOUSE. . IMPORTANT MESSAGE FROM MEDICARE PROVIDED AND EXPLAINED. CM CALLED [facility], , SPOKE TO SERGIO WHO PLACED PT ON SCHEDULE FOR RESUMPTION OF HOME HEALTH. CM FAXED DISCHARGE INFORMATION TO [facility], . PT AND SPOUSE NOTIFIED IN ROOM. BPO SPECIALIST NOTIFIED. Helper/Driver: Monty Fried DCPIA - Discharge Planning Initial Assessment Updated by [email or web address]: Monty Fried on 12/26/18 12:46 pm * Is the patient Alert and Oriented? Yes * How many steps to enter\exit or inside your home? RAMP * PCP DR. BALDERAS * Pharmacy [facility] * Preadmission Environment Home with Family * ADLs Independent * Equipment Bedside [facility] Bed Hiwot Lift Power Chair or Electric Scooter * Other Equipment [employer] - MEDICAL EQUIPMENT PROVIDER * List name and contact numbers for known caregivers / representatives who currently or will assist patient after discharge: MARLEY GRAF, SPOUSE, * Verbal permission to speak to the caregivers and representatives has been obtained from the patient. Yes * Community resources currently utilized Home Health Private Duty Care * Please name any agencies selected above. [facility]; HOME HEALTH SERVICES 24 HOUR PRIVATE DUTY CARE, PT NOR SPOUSE CAN REMEMBER AGENCY NAME. * Additional services required to return to the preadmission environment? No * Can the patient safely return to the preadmission environment? Yes * Has this patient been hospitalized within the prior 30 days at any hospital? No Coverage Notice Reviewer: [email or web address] Josefa Gonzalez Notice Issued Date-Time: 12/24/2018 9:32 Notice Type: Medicare Outpatient Observation Notice Notice Delivered To: Patient Relationship to Patient: Self Tuckpointer Cleaner Caulker Name: Delivery Method: HAND - Hand Delivered Kary Days: Prior Verbal Notification: Recipient Understood Notice: Yes Recipient Signature: Yes Med Rec Note Co-signed by Attending: Coverage Notice Comment: BOLTON DISCUSSED WITH PATIENT, HIS MARLEY AND HIS SISTER IN [facility] JOAQUIM, AFTER VERBAL CONSENT OBTAINED FROM PATIENT. PER PATIENTS REQUEST, SIGNED BOLTON. Reviewer: [id number] - Monty Fried Notice Issued Date-Time: 12/26/2018 12:25 Notice Type: Patient Choice Letter Notice Delivered To: Patient Relationship to Patient: Tuckpointer Cleaner Caulker Name: Delivery Method: HAND - Hand Delivered Kary Days: Prior Verbal Notification: Recipient Understood Notice: Yes Recipient Signature: Yes Med Rec Note Co-signed by Attending: Coverage Notice Comment: [facility] Last DP export: 12/26/18 12:00 p Patient Name: CHRISTIAN GRAF Page [id number] at 1319 All edits/amendments must be made on the electronic document DICTATION DATE: 12/26/181317 BALLOON SANDER: SANTY 12/26/181317 RPT#: [id number] DC DATE: STATUS: ADM IN [facility] [address] [place] [address] END OF REPORT
--- NOTE | 2018-12-26 13:55 | NUR ---
PT SIGNED DISCHARGE PAPERS, CALLED AND INFORMED . LANRE WILL BE HERE AFTER 1400 SOMETIME.
--- NOTE | 2018-12-31 13:38 | OP ---
PATIENT NAME: CHRISTIAN GRAF MEDICAL RECORD: [id number] :31 LOCATION:D.M2 D.2109 ADMISSION DATE:12/24/18 SURGEON: FATOUMATA REED MD DATE OF OPERATION: 12/24/2018 PROCEDURES: 1. Left heart catheterization. 2. Selective coronary angiography. 3. Left ventriculogram. 4. IFR. INDICATION: Angina, syncope, atrial fibrillation, hypertension, hyperlipidemia, diabetes, and coronary artery disease. PROCEDURE IN DETAIL: After informed consent was obtained and after a detailed description of risks, benefits as well as alternative therapies, the patient elected to proceed with angiogram and heart catheterization. The right radial area was prepped and draped in normal sterile fashion. Right radial artery was cannulated via modified Seldinger technique with placement of a 6-Azerbaijani sheath. All catheters exchanged through this sheath. FINDINGS: Left ventriculogram was performed in standard 30-degree WHEELER view reveals preserved cardiac wall motion, ejection fraction 55%. SELECTIVE CORONARY ANGIOGRAPHY: 1. Left main is with no significant angiographic disease. 2. Left anterior descending has moderate irregularities, but no flow-limiting stenosis. 3. The left circumflex has moderate irregularities, but IFR was normal. 4. Right coronary has moderate irregularities, but no flow-limiting stenosis. OVERALL IMPRESSION: No significant coronary artery disease is present. Center medical management on treatment of the dysrhythmia. TRANSINT:[id number] Voice Confirmation ID: [id number] DOCUMENT ID: [id number] FATOUMATA REED MD at 1338 CC: [id number] DICTATION DATE: 12/24/181800 CONE CHOCOLATE DIPPER: 12/24/182134 DIS IN 12/26/18 [facility] [address] [place] [address]
--- NOTE | 2018-12-31 13:38 | EC ---
PATIENT:CHRISTIAN GRAF DATE OF SERVICE: 12/23/18 SEX: M MEDICAL RECORD: [id number] DATE OF : [birth year] LOCATION:D.M2 D.210 AGE OF PATIENT: 83 ADMISSION DATE: 12/24/18 REFERRING PHYSICIAN: INTERPRETING PHYSICIAN: FATOUMATA GREENFIELD MD ECHOCARDIOGRAM REPORT ECHO CHARGES 4 ECHO COMPLETE Date: 12/24/18 CLINICAL DIAGNOSIS: UNSTABLE ANGINA/SYNCOPE ECHOCARDIOGRAPHIC MEASUREMENTS (adult normal given) AC root (d.<3.7cm) 3.0 cm LV Septum d (<1.2 cm> 1.6 cm Valve Excursion 1.5 cm LV Septum (systole) 1.7 cm Left Atria (s.<4.0cm> 3.8 cm LVPW d(<1.2cm) 1.3 cm RV (d.<2.3cm) 2.9 cm LVPW (sytole) 1.4 cm LV diastole(<5.6CM) 5.1 cm MV E-F(>70mm/sec) cm LV systole 4.2 cm LVOT Diameter 1.9 cm MV exc.(>10mm) cm Est.ejection fraction (50-75%) % DOPPLER: LVIT cm/sec A 36.0 cm/sec E 90.0 cm/sec LA cm/sec RVSP 22.4 mmHg LVOT 82 cm/sec AOP1/2T m/s Asc. Ao 124 cm/sec RVOT 75 cm/sec RA cm/sec PA 88 cm/sec AV Gradient Peak 6.2 mmHg AV Mean 3.2 mmHg AV Area 1.9 cm MV Gradient Peak 4.2 mmHg MV Mean 1.5 mmHg MV Area cm COMMENTS: Grading Machine Feeder: Tyson JOSHI Embossing Machine Tender: 1 Dr. Greenfield TAPE# PACS Pericardial Effusion Y DATE OF SERVICE: FINDINGS: 1. Left ventricular chamber size is within normal limits. Left ventricular systolic function is normal at 55%. 2. Left atrium is within normal limits. Right atrium and right ventricular chamber sizes are mildly dilated. 3. Valvular structures have normal structure and motion. 4. Doppler interrogation reveals trace mitral regurgitation, mild tricuspid regurgitation, no other valvular insufficiency or stenosis. Pulmonary systolic ECHOCARDIOGRAM REPORT [id number] CHRISTIAN GRAF pressure is estimated at 23 mmHg. 5. No evidence of pericardial effusion or left ventricular thrombus. TRANSINT:[id number] Voice Confirmation ID: [id number] DOCUMENT ID: [id number] FATOUMATA GREENFIELD MD at 1338 CC: [id number] DICTATION DATE: 12/24/18 1211 CREW SCHEDULER: 12/24/18 1243 DIS IN 12/26/18 [id number] [place] [id number]
== END 2018-12-26 15:59 | disposition home health service (06) | DRG 287 ==
LOC: D.ER 19:14 → D.M2 23:25 → OBSVTIME 23:25 → D.M2 12-24 16:04
PROVIDERS: Family Medicine; Internal Medicine Interventional Cardiology; ADMIT Family Medicine; ATTEND Family Medicine
PROC: B2151ZZ Fluoroscopy of Left Heart using Low Osmolar Contrast (ICD-10-PCS; 2018-12-24)
PROC: 4A023N7 Measurement of Cardiac Sampling and Pressure, Left Heart, Percutaneous Approach (ICD-10-PCS; 2018-12-24)
PROC: 4A033BC Measurement of Arterial Pressure, Coronary, Percutaneous Approach (ICD-10-PCS; 2018-12-24)
PROC: B2111ZZ Fluoroscopy of Multiple Coronary Arteries using Low Osmolar Contrast (ICD-10-PCS; principal; 2018-12-24 17:45)
DX: I48.0 Paroxysmal atrial fibrillation (principal); I25.110 Atherosclerotic heart disease of native coronary artery with unstable angina pectoris; R55 Syncope and collapse; E11.40 Type 2 diabetes mellitus with diabetic neuropathy, unspecified; E66.9 Obesity, unspecified; E78.5 Hyperlipidemia, unspecified; I11.0 Hypertensive heart disease with heart failure; I50.9 Heart failure, unspecified; Z86.711 Personal history of pulmonary embolism; Z86.718 Personal history of other venous thrombosis and embolism

== ENCOUNTER 2019-01-02 16:32 | Emergency (ER) | payer MEDICARE, OTHER ==
[~2019-01-02] VITALS: Ht 177.8 cm; Wt 102.3 kg
[~2019-01-02 16:32] MED LIST changes: +BETAPACE 80 MG80 MG PO
[2019-01-02 16:35] VITALS: Ht 177.8 cm; Wt 102.3 kg
[2019-01-02] MEDS ORDERED: BETAPACE 80 MG80 MG PO ×2 (16:52→19:18)
[2019-01-02] MEDS ORDERED: COLACE100 MG PO (16:53)
[2019-01-02] MEDS ORDERED: PIOGLITAZONE15 MG PO (16:54)
[2019-01-02] MEDS ORDERED: ACETAMINOPHEN500 M1 PO (16:55)
[2019-01-02] MEDS ORDERED: CENTRUM COMPLE1 EACH PO (16:56)
[2019-01-02 17:24] LABS: BASOPHILS 0.6 % (0-2); EOSINOPHILS 2.8 % (0-7); HEMATOCRIT 34.7 % (42.0-54.0); HEMOGLOBIN 10.9 g/dL (13.5-17.5); IMMATURE GRANULOCYTES 0.4 % (0-5); LYMPHOCYTES 20.3 % (15-50); MCH 30.6 pg (26.0-34.0); MCHC 31.4 g/dL (31.0-37.0); MCV 97.5 fL (80.0-100.0); MEAN PLATELET VOLUME 9.9 fL (7.4-10.4); MONOCYTES 7.6 % (2-11); NEUTROPHILS 68.3 % (40-80); PLATELET COUNT 169 10x3/uL (130-400); RBC 3.56 10x6/uL (4.20-6.10); RDW 14.8 % (11.5-14.5); WBC 5.3 10x3/uL (4.8-10.8)
[2019-01-02 17:39] LABS: ALBUMIN 2.4 g/dL (3.4-5.0); ALKALINE PHOSPHATASE 54 U/L (46-116); ALT (SGPT) 15 U/L (10-68); BILIRUBIN - TOTAL 0.28 mg/dL (0.2-1.3); CALC OSMOLALITY 280 mosm/kg (275-300); CALCIUM 8.7 mg/dL (8.5-10.1); CARBON DIOXIDE 32.3 mmol/L (21.0-32.0); CHLORIDE - SERUM 102 mmol/L (98-107); CREATININE - SERUM 1.2 mg/dL (0.6-1.3); GLUCOSE 122 mg/dL (74-106); POTASSIUM - SERUM 4.2 mmol/L (3.5-5.1); PROTEIN - SERUM 6.3 g/dL (6.4-8.2); SODIUM 139 mmol/L (136-145); UREA NITROGEN 17 mg/dL (7-18); eGFR NON AFRICAN AMERICAN 61 mL/min (90-120)
[2019-01-02 17:43] LABS: APPEARANCE CLEAR (CLEAR); BILIRUBIN NEGATIVE (NEGATIVE); COLOR YELLOW (YELLOW); GLUCOSE NEGATIVE (NEGATIVE); KETONE NEGATIVE (NEGATIVE); NITRITE NEGATIVE (NEGATIVE); PROTEIN NEGATIVE (NEGATIVE); UROBILINOGEN NORMAL (NORMAL)
[2019-01-02 17:45] LABS: APTT 32.6 SECONDS (22.8-39.4); INR 1.11 (0.85-1.17); PROTIME 13.8 SECONDS (11.6-15.0)
[2019-01-02 18:09] LABS: PRO BNP 779 pg/mL (0-450)
[2019-01-02 18:10] LABS: TROPONIN-I < 0.017 ng/mL (0.000-0.060)
[2019-01-02 20:20] VITALS: BP 122/74
== END 2019-01-02 20:21 | disposition home or self-care (01) ==
LOC: D.ER 16:32
PROVIDERS: Family Medicine
DX: I48.91 Unspecified atrial fibrillation (principal); I95.0 Idiopathic hypotension; R55 Syncope and collapse; I11.0 Hypertensive heart disease with heart failure; I50.9 Heart failure, unspecified

== ENCOUNTER 2019-02-12 08:56 | Emergency (ER) | payer MEDICARE, OTHER ==
[~2019-02-12] VITALS: Ht 177.8 cm; Wt 100.0 kg
[~2019-02-12 08:56] MED LIST changes: +ACETAMINOPHEN500 M1 PO; +CENTRUM COMPLE1 EACH PO; +COLACE100 MG PO
[2019-02-12 09:01] VITALS: Ht 177.8 cm; Wt 100.0 kg
[2019-02-12] MEDS ORDERED: VIBRAMYCIN 100100 MG PO (09:26)
[2019-02-12 10:10] VITALS: BP 124/49
== END 2019-02-12 09:43 | disposition home or self-care (01) ==
LOC: D.ER 08:56
DX: L89.91 Pressure ulcer of unspecified site, stage 1 (principal); I10 Essential (primary) hypertension; E11.9 Type 2 diabetes mellitus without complications

== ENCOUNTER 2019-03-11 11:12 | Outpatient (CLI) | payer MEDICARE, OTHER ==
[~2019-03-11] VITALS: Ht 177.8 cm; Wt 100.7 kg
--- NOTE | ~2019-03-11 | OP ---
PATIENT NAME: CHRISTIAN GRAF MEDICAL RECORD: [id number] :31 LOCATION:D. D.2116 ADMISSION DATE: SURGEON: BRITTANY LAN MD DATE OF OPERATION: 03/11/2019 PROCEDURE: Lead portion of permanent pacer placement. INDICATION: Sick sinus syndrome with martha escape rhythm pauses. SURGEON: Suman Solomon MD DESCRIPTION OF PROCEDURE: After the left subclavian was cannulated via modified Seldinger technique via Dr. Solomon first under fluoroscopic guidance, I placed the RV lead into the RV apex without difficulty. After adequate thresholds and R waves were obtained, again under fluoroscopic guidance, I placed the right atrial lead in the right atrial appendage without difficulty. After adequate P-waves were obtained, the leads were attached to the appropriate poles of the generator and the pocket was closed via Dr. Solomon. IMPRESSION: Successful lead portion of permanent pacemaker placement. COMPLICATIONS: None. ESTIMATED BLOOD LOSS: Minimal. DISPOSITION: To the floor, stable. TRANSINT:[id number] Voice Confirmation ID: [id number] DOCUMENT ID: [id number] BRITTANY LAN MD CC: [id number] DICTATION DATE: 03/11/19 1445 INDUSTRIAL HIRE SALES ASSISTANT: 03/11/19 2133 [facility] [address] [place] [id number]
--- NOTE | ~2019-03-11 | HEMODYNAMI ---
PATIENT:CHRISTIAN GRAF MEDICAL RECORD: [id number] : 31 LOCATION:DJEAN-PIERRE ADMISSION DATE: 03/11/19 Generatedon:03/11/201914:59 Patient name: CHRISTIAN GRAF Patient #: [id number] SSN: [id number] : 1935 Date of study: 03/11/2019 Page: Of Hemodynamic Procedure Report Patient Data Patient Demographics Procedure consent was obtained First Name: CHRISTIAN Gender: Male Last Name: LESIA : 1935 Patient #: [id number] Age: 83 year(s) Race: SSN: [id number] Additional ID: [id number] Contact details Address: [address] [place] [address] State: [place] City: [place] Zip code: [address] Past Medical History Allergies: No known allergies Admission Admission Data Admission Date: 03/11/2019 Admission Time: 11:12 Lab Results Lab Result Date: 03/11/2019 Lab Result Time: 0:00 Biochemistry Name Units Result Min Max BUN mg/dl 15 --(--*-)-- 7 18 Creatinine mg/dl 1.1 --(--*-)-- 0.6 1.3 eGFR ml/min 67.43806 *-(----)-- 90 120 NONAFRICAN CBC Name Units Result Min Max Hematocrit % 35.5 *-(----)-- 42 54 Hemoglobin g/dl 11.1 *-(----)-- 13.5 17.5 Procedure Procedure Types Cath Procedure Diagnostic Procedure PPM/ICD PPM Dual Implant Sedation Charges Moderate Sedation up to 15 minutes Procedure Description Procedure Date Procedure Date: 03/11/2019 Procedure Start Time: 14:21 Procedure End Time: 14:53 Procedure Staff Name Function Sina Welch MD Performing Physician Suman Solomon MD Assisting physician Sahara Tristan RT Monitor Humberto Coleman RN Nurse Laura Eldridge RT Scrub Archie Still RT Monitor Indication Sick Sinus Syndrome Procedure Data Cath Procedure Fluoroscopy Diagnostic fluoroscopy Total fluoroscopy Time: 1.9 time: 1.9 min min Diagnostic fluoroscopy Total fluoroscopy dose: dose: 82.4 mGy 82.4 mGy Contrast Material Contrast Material Type Amount (ml) Isovue 300 0 Estimated blood loss: 5 ml Procedure Complications No complications Procedure Medications Medication Administration Route Dosage 0.9% NaCl I.V. 100 ml/hr Oxygen etCO2 Nasal cannula 3 l/min Lidocaine 1% added to field 20 Vancomycin I.V.P.B 1 g Vancomycin 1 g Irrigation Versed I.V. 2 mg Fentanyl I.V. 100 mcg Versed I.V. 1 mg Versed I.V. 1 mg Hemodynamics Rest HGB: 11.1 (g/dl) Heart Rate: 73 (bpm) Snapshots Pre Cath Intra NCS Post Cath Vital Signs Time Heart Resp SPO2 etCO2 NIBP (mmHg) Rhythm Pain Sedation Rate (ipm) (%) (mmHg) Status Level (bpm) 14:02:51 63 19 96 37.3 166/88(136) A-Fib 0 (11) 10(A) , No pain 14:07:11 68 17 98 31.3 159/91(139) A-Fib 0 (11) 10(A) , No pain 14:11:31 64 14 98 33.6 141/83(131) A-Fib 0 (11) 10(A) , No pain 14:15:43 70 15 97 0.7 149/86(120) A-Fib 0 (11) 10(A) , No pain 14:20:01 62 16 98 1.4 143/79(119) A-Fib 0 (11) 10(A) , No pain 14:24:13 300 11 98 0 135/88(126) A-Fib 0 (11) 9(A) , No pain 14:28:23 90 18 97 0.7 145/81(131) A-Fib 0 (11) 9(A) , No pain 14:33:38 75 14 97 11.2 171/103(143) A-Fib 0 (11) 9(A) , No pain 14:38:46 61 22 96 4.4 146/85(117) A-Fib 0 (11) 9(A) , No pain 14:42:59 64 13 96 11.9 147/84(126) A-Fib 0 (11) 10(A) , No pain 14:47:50 68 19 96 3.7 145/85(113) A-Fib 0 (11) 10(A) , No pain 14:52:00 66 15 97 29.8 145/82(126) A-Fib 0 (11) 10(A) , No pain Medications Time Medication Route Dose Verified Delivered Reason Notes Effectiv eness by by 14:04:20 0.9% NaCl I.V. 100 Humberto Humberto Per ml/hr Virginia Coleman physician RN RN 14:04:31 Oxygen etCO2 3 Humberto Humberto for low 02 Nasal l/min Gayigan Virginia sats cannula RN RN 14:04:54 Lidocaine added 20ml Humberto Humberto for local 1% to vial Gayigan Lorigan anesthetic field ( X RN RN 2) 14:05:05 Vancomycin I.V.P.B 1 g Humberto Humberto Per Virginia Coleman physician RN RN 14:05:43 Vancomycin Topical 1 g Humberto Humberto used for Irrigation (added Virginia Coleman procedure to RN contractor field hauling) 14:18:15 Versed I.V. 2 mg Humberto Humberto for Lorigan Lorigan sedation RN RN 14:19:35 Fentanyl I.V. 100 Humberto Humberto for mcg Lorigan Lorigan sedation RN RN 14:23:41 Versed I.V. 1 mg Humberto Humberto for Lorigan Lorigan sedation RN RN 14:34:25 Versed I.V. 1 mg Humberto Humberto for Lorigan Lorigan sedation RN recovery coach Log Time Note 13:36:53 Informed consent obtained and on chart 13:37:25 Diagnostic Cath Status : Elective 13:38:24 Indication : Sick Sinus Syndrome 13:38:39 Procedure Status PPM/ Gen Change/ Lead Revision/ Temp. 13:38:43 Humebrto Coleman RN sent for patient. Start room use. 13:38:47 Time tracking: Regular hours (M-F 7:00 - 5:00) 13:38:54 Plan of Care:Hemodynamics will remain stable., Cardiac rhythm will remain stable., Comfort level will be maintained., Respiratory function will remain adequate., Patient/ family verbilizes understanding of procedure., Procedure tolerated without complication., Recovers from procedure without complications.. 13:48:17 Lab Result : Creatinine 1.1 mg/dl 13:48:17 Lab Result : BUN 15 mg/dl 13:48:17 Lab Result : eGFR NONAFRICAN 67.26902 ml/min 13:48:17 Lab Result : Hematocrit 35.5 % 13:48:17 Lab Result : Hemoglobin 11.1 g/dl 13:49:02 H&P Date Dictated: 02/10/2019 Within 30 days and on chart., H&P Addendum completed by physician on day of procedure. (MUST COMPLETE FOR ALL OUTPATIENTS). 13:49:09 Patient allergic to No known allergies 13:49:32 Patient received from Pre/Post Procedure Room to CCL 3 Alert and oriented. Tansferred to table in Supine position. 13:49:33 Warm blankets applied, and loren hugger turned on for patient comfort. 13:49:34 Correct patient and procedure confirmed by team. 13:49:34 ECG and BP/O2 sat monitors applied to patient. 14:01:38 Vital chart was started 14:01:44 Baseline sample Acquired. 14:01:56 Rhythm: atrial fibrillation/sick sinus syndrome 14:02:02 Full Disclosure recording started 14:02:35 - 14:02:36 Pre-procedure instructions explained to patient. 14:02:37 Pre-op teaching completed and patient verbalized understanding. 14:02:52 Family in waiting room. 14:02:55 Patient NPO since Midnight. 14:03:02 Is the patient allergic to Iodine/contrast media? No. 14:03:08 Was the patient premedicated? Yes 14:03:10 Is patient on blood thinner?Yes 14:03:18 ACC The patient was administered the following blood thiners within the last dose 03-09-19: ACCPradaxa 14:04:09 Patient diabetic? Yes. 14:04:12 If diabetic: On Metformin? No 14:04:14 ----Pre-sedation anethsthesia assessment.---- 14:04:18 Previous problem with sedation/anesthesia? No ? 14:04:20 0.9% NaCl 100 ml/hr I.V. was administered by Humberto Coleman RN; Per physician; Verbal order read back and verified. 14:04:20 Snore? Yes 14:04:23 Sleep apnea? No 14:04:25 Deviated septum? No 14:04:27 Opens mouth fully? Yes 14:04:28 Sticks out tongue? Yes 14:04:31 Oxygen 3 l/min etCO2 Nasal cannula was administered by Humberto Coleman RN; for low 02 sats; Verbal order read back and verified. 14:04:33 Airway obstruction? No ? 14:04:42 Dentures? Yes both in tight 14:04:54 Lidocaine 1% 20ml vial ( X 2) added to field was administered by Gregory Coleman RN; for local anesthetic; Verbal order read back and verified. 14:04:55 Patient pain scale 2/10 back pain. 14:05:05 Vancomycin 1 g I.V.P.B was administered by Humberto Coleman RN; Per physician; Verbal order read back and verified. 14:05:13 IV patent on arrival in right forearm with 0.9% NaCl at [facility]. 14:05:21 Lab results completed and on chart. 14:05:43 Vancomycin Irrigation 1 g Topical (added to field) was administered by Humberto Coleman RN; used for procedure; Verbal order read back and verified. 14:05:54 Left chest area was prepped with chlora-prep and draped in sterile fashion 14:05:56 Alarms reviewed by R. N. 14:05:57 Sharps counted by scrub and verified by R.N. 14:09:31 Medtronic bank representative BEBETO LOGAN present for procedure. 14:09:53 Pre sharps counted by scrub and verified by RN: Sutures: 7; Sponges: 5; Stick needles: 2; Skin needles: 2; Blade: 1; Cautery: 1 14:10:01 Grounding pad site Left thigh. 14:10:03 Grounding pad site free from injury. 14:10:14 Use device set SHAMIR PPM 14:10:17 2-0 Ticron Multipack ([id number]) opened to sterile field. 14:10:18 3-0 Vicryl Single Pack [id number] opened to sterile field. 14:10:18 5-0 Monocryl PS2 [id number] opened to sterile field. 14:10:19 Cautery Tip Bookstore Manager opened to sterile field. 14:10:21 Cautery Pushbutton Pencil opened to sterile field. 14:10:22 Mepilex Dressing ([id number]) opened to sterile field. 14:10:30 Immobilizer Large opened to sterile field. 14:10:41 Medtronic 4574-45 PPM Lead opened to sterile field. 14:10:46 Medtronic 4074-52 PPM Lead opened to sterile field. 14:11:[address] Generator [id number] opened to sterile field. 14:16:50 Physician arrived 14:16:51 --------ALL STOP TIME OUT------ 14:16:53 Final Timeout: patient, procedure, and site verified with staff and physician. All members of the team are in agreement. 14:17:02 Left chest site verified by team. 14:17:16 Fire Safety Assessment: A--An alcohol-based skin anteseptic being used preoperatively., B--The operative or invasive procedure is being performed above the xiphoid process or in the oropharynx., C--Open oxygen or nitrous oxide is being used. 14:17:21 Physical assessment completed. ASA score P 2 - A patient with mild systemic disease as per Sian Welch MD. 14:17:31 Sedation plan: IV Moderate Sedation Medication:Versed, Fentanyl 14:18:15 Versed 2 mg I.V. was administered by Humberto Coleman RN; for sedation; Verbal order read back and verified. 14:19:35 Fentanyl 100 mcg I.V. was administered by Humberto Coleman RN; for sedation; Verbal order read back and verified. 14:20:05 Procedure started. 14:21:08 Lidocaine 1% was administered to left subclavicular area by Suman Solomon MD . 14:23:22 Incision made to left subclavicular area. 14:23:32 Generator pocket made/opened. 14:23:41 Versed 1 mg I.V. was administered by Humberto Coleman RN; for sedation; Verbal order read back and verified. 14:25:30 Access obtained with 4Fr micropunture. 14:26:24 Left subclavian vein accessed with 7Fr Peel Away Sheath. 14:26:33 Left subclavian vein accessed with 7Fr Peel Away Sheath. 14:34:25 Versed 1 mg I.V. was administered by Humberto Coleman RN; for sedation; Verbal order read back and verified. 14:37:28 Ventricular lead inserted and advanced. 14:37:52 Ventricular lead positioned. 14:37:57 Ventricular lead tested. 14:38:46 Atrial lead inserted and advanced. 14:39:33 Atrial lead positioned. 14:39:38 Atrial lead tested. 14:41:15 Peel-a-way sheath was split and removed. 14:41:28 Peel-a-way sheath was split and removed. 14:41:39 Atrial lead attachment was completed with 2-0 ticron. 14:41:45 Ventricular lead attachment was completed with 2-0 ticron. 14:42:14 PPM Dual was attached to lead(s) and inserted into pocket. 14:43:20 Device pocket was irrigated with Vancomycin. 14:43:28 Generator was sutured in place with 2-0 ticron. 14:43:48 Subcutaneous closure was completed with 3-0 vicryl plus. 14:43:54 Skin closure was completed with 5-0 monocryl. 14:46:47 Parameters-- Generator: Mode: DDDR. Lower Rate: 60bpm. Upper Rate: 110bpm. 14:47:17 Parameters--Ventricular P/R Wave: 5.8mV. Current: 0.1mA; Threshold: 0.2V; Impedence: 759OHMS. 14:47:52 Parameters--Atrial P/R Wave: 1.1mV. Current: ?mA; Threshold: AFV; Impedence: 634OHMS. 14:48:51 Lt Chest incision was dressed with Mepilex dressing. 14:48:56 Procedure ended.(Physican Out) 14:49:23 Fluoroscopy time 01.90 minutes. 14:49:33 Fluoroscopy dose: 82.4 mGy 14:49:33 Flurop Dose total: 82.4 14:49:48 Dose Area Product 840.90 mGy/cm. 14:49:55 Contrast amount:Isovue 300 0ml. 14:50:01 Sharps counted by scrub and verified by R.NÓscar 14:50:07 Insertion/operative site no bleeding no hematoma. 14:50:16 Post-op/insertion site Left Chest area dressed using a Mepilex dressing . 14:50:39 Post sharps counted by scrub and verified by RN: Sutures: 7; Sponges: 5 ; Stick needles: 2; Skin needles: 2; Blade: 1; Cautery: 1 14:51:14 Post-procedure physical assessment completed. ASA score P 2 - A patient with mild systemic disease as per Sina Welch MD. 14:51:22 Post procedure rhythm: paced 14:51:28 Estimated blood loss: 5 ml 14:51:37 Post procedure instruction explained to patient.Patient verbalizes understanding. 14:51:38 Patient needs reinforcement of post procedure teaching. 14:52:18 Procedure type changed to Cath procedure, Diagnostic procedure, PPM/ICD , PPM Dual Implant, Sedation Charges, Moderate Sedation up to 15 minutes 14:52:24 Procedure and supply charges have been captured, reviewed, submitted an d are correct. 14:52:34 Procedure Complication : No complications 14:52:41 Vital chart was stopped 14:52:46 Operative report dictated upon procedure completion. 14:52:47 See physician's report for complete and final results. 14:52:53 Report given to Med II. 14:52:59 Patient transfered to Med II with Bed. 14:53:02 Procedure ended. 14:53:02 Full Disclosure recording stopped 14:53:04 End room use (Document Last) 14:56:21 Nat Medrano RT(R) was relieved by Archie Still RT(R) as monitoring person Device Usage Item Name Manufacture Quantity Catalog [facility] Lot# / Serial# Number Charge Number Stock Stock Code 2-0 Ticron Ethicon 1 [id number] 979349 29579 [id number] 5 Multipack ([id number]) 3-0 Vicryl Ethicon 1 [id number] 895129 229862 443133 5 Single Pack [id number] 5-0 Monocryl Ethicon 1 Y495G 650852 488120 199497 5 PS2 Y495G Cautery Tip Microtek 1 [id number] 796134 383824 205860 5 [employer]. Cautery Microtek 1 [id number] 130121 37090 187220 5 [employer] Pencil Mepilex Cardinal 1 460574 772116 581250 829676 5 [facility] (347773) Immobilizer Cardinal 1 79-32677 805741 864455 430517 5 Large Health Medtronic Medtronic 1 4574-45 641365 655466 762608 5 [id number] 4574-45 PPM [id number] Lead Medtronic Medtronic 1 4074-52 888909 856189 556849 5 [id number] EXP 4074-52 PPM 12-18-2020 Lead Medtronic Medtronic 1 [id number] 076062 2793309 222846 [id number] [id number] Generator [id number] Signature Audit [place] Stage Time Signature Unsigned Intra-Procedure 03/11/2019 Humberto 2:56:09 PM Virginia PERSAUD Intra-Procedure 03/11/2019 Archie Still 2:57:57 PM RT(R) Intra-Procedure 03/11/2019 Humberto 2:58:25 PM Virginia PERSAUD Intra-Procedure 03/11/2019 Sina Lopez 2:59:00 PM Irving [address] [id number] [place] [id number]
--- NOTE | ~2019-03-11 | OP ---
PATIENT NAME: CHRISTIAN GRAF MEDICAL RECORD: [id number] :31 LOCATION:D.M2 D.2116 ADMISSION DATE: SURGEON: SUMAN BARKSDALE MD DATE OF OPERATION: 03/11/2019 PREOPERATIVE DIAGNOSES: 1. Paroxysmal atrial fibrillation. 2. Hyperlipidemia. 3. Coronary artery disease. POSTOPERATIVE DIAGNOSES: 1. Paroxysmal atrial fibrillation. 2. Hyperlipidemia. 3. Coronary artery disease. PROCEDURE IN DETAIL: Left subclavian vein dual-lead pacemaker placement with fluoroscopic interpretation. SURGEON: Suman Barksdale MD CO-SURGEON: Sina Song MD REPORT OF PROCEDURE: The patient's left chest was prepped and draped in sterile fashion. A 20 mL of 1% lidocaine with epinephrine was infused into the surrounding tissues. A skin incision made on the left superior lateral chest and a subcutaneous pouch was made over the pectoral fascia. The needles were used to cannulate the left subclavian vein and guidewires were advanced under fluoroscopic guidance. Over these wires, dilators were placed. The dilators and wires were removed and the leads were advanced through the trocars. At this point, Dr. Song positioned the leads appropriately in the atrium and ventricle. Once the leads were noted to be in good position, these were sutured into place with 2-0 Ti-Cron, the pacemaker was affixed to the leads and then placed into the subcutaneous pouch. The pacemaker was sutured to the pectoral fascia using interrupted 2-0 Ti-Cron times 1. We irrigated out the wound with antibiotic solution. The subcutaneous tissues were reapproximated with interrupted 3-0 Vicryls and the skin was closed with running subcutaneous 5-0 Monocryl. COMPLICATIONS: None. CONDITION: Stable. ANESTHESIA: Local MAC. BLOOD LOSS: Minimal. TRANSINT:[id number] Voice Confirmation ID: [id number] DOCUMENT ID: [id number] OPERATIVE REPORT [id number] LESIACHRISTIAN SUMAN BARKSDALE MD CC: [id number] DICTATION DATE: 03/11/191451 TAR WORKER: 03/11/192049 [facility] [address] [id number]
[~2019-03-11 11:12] MED LIST changes: +VIBRAMYCIN 100100 MG PO
[2019-03-11 12:43] VITALS: BP 137/80; BMI 31.5
[2019-03-11 13:18] LABS: HEMATOCRIT 35.5 % (42.0-54.0); HEMOGLOBIN 11.1 g/dL (13.5-17.5); MCHC 31.3 g/dL (31.0-37.0); MCV 95.9 fL (80.0-100.0); MEAN PLATELET VOLUME 10.5 fL (7.4-10.4); RBC 3.7 10x6/uL (4.20-6.10); WBC 5.3 10x3/uL (4.8-10.8)
[2019-03-11 13:24] LABS: CALCIUM 9.6 mg/dL (8.5-10.1); CARBON DIOXIDE 31.8 mmol/L (21.0-32.0); CREATININE - SERUM 1.1 mg/dL (0.6-1.3); POTASSIUM - SERUM 3.8 mmol/L (3.5-5.1)
[2019-03-11 13:26] LABS: APTT 33.9 SECONDS (22.8-39.4); INR 1.2 (0.85-1.17); PROTIME 14.7 SECONDS (11.6-15.0)
[2019-03-11 15:19] VITALS: BP 150/70
--- NOTE | 2019-03-11 15:32 | NUR ---
TRANSFER FROM TAXONOMY TEACHER BY BED. VS WNL. LEFT CHEST DRSG CLEAN AND DRY. LEFT ARM IN SLING. FAMILY AT BS. CALL LIGHT IN REACH. WILL CONT. PLAN OF CARE.
[2019-03-11 15:37] VITALS: BP 150/70; Ht 177.8 cm; Wt 100.7 kg
--- NOTE | 2019-03-11 19:03 | NUR ---
RECEIVED BEDSIDE REPORT. PATIENT IS ALERT AND ORIENTED, RESTING COMFORTABLY IN BED. RESPIRATIONS ARE EVEN AND UNLABORED. NO S/S OF DISTRESS. NO C/O PAIN CALL LIGHT WITHIN REACH. WILL CPOC.
[2019-03-11 20:00] VITALS: BP 123/84
--- NOTE | 2019-03-11 22:52 | NUR ---
PATIENT RESTING COMFORTABLY IN BED. RESPIRATIONS ARE EVEN AND UNLABORED. NO S/S OF DISTRESS. NO C/O PAIN. CALL LIGHT WITHIN REACH. WILL CPOC.
[2019-03-12] VITALS: BP 129/64
--- NOTE | 2019-03-12 03:53 | NUR ---
PATIENT CALLED ON LIGHT TO USE RESTROOM. ASSISTED PATIENT TO RESTROOM. PATIENT WAS VERY UPSET. HE STATED THAT HE HAD CALLED EARLIER AND ASKED FOR A PILLOW AND NEVER RECEIVED THE PILLOW FOR HIS LEGS. PATIENT STATED THAT THE LAST THREE TIMES HE HAS BEEN HERE HE WAS NOT HAPPY WITH HIS CARE. PATIENT STATED HIS CARE WAS FINE UP UNTIL NOT RECEIVING HIS PILLOW. PATIENT NOW HAS PILLOW. HIS RIGHT LEG IS ELEVATED. APOLOGIZED TO PATIENT.
[2019-03-12 04:00] VITALS: BP 138/64
[2019-03-12 08:00] VITALS: BP 129/65
--- NOTE | 2019-03-12 09:13 | NUR ---
UPON ADMIT PATIENT HAS NOT HAD A FLU SHOT, WHEN QUESTIONED HE REFUSED TO RECEIVE ONE.
--- NOTE | 2019-03-12 09:40 | NUR ---
PRIMARY NURSE (HUNG RANDHAWA) TO TELL ME PATIENT IS BED BOUND AND NEEDS TO BE TRANSPORTED VIA AMBULANCE. PAPERWORK FILLED OUT,
--- NOTE | 2019-03-12 10:41 | NUR ---
IV AND TELEMETRY DCD. DC PLANS GIVEN TO . UNDERSTANDING VOICED. ESCORTED BY EMS.
== END 2019-03-12 10:42 | disposition home or self-care (01) ==
LOC: D.CATH 11:12 → D.M2 15:00 → D.CATH 03-12 10:42
PROVIDERS: ATTEND Internal Medicine Interventional Cardiology
DX: I48.0 Paroxysmal atrial fibrillation (principal); E78.5 Hyperlipidemia, unspecified; I25.10 Atherosclerotic heart disease of native coronary artery without angina pectoris

== ENCOUNTER → 2019-08-15 11:21 | Outpatient (CLI) | payer MEDICARE, OTHER ==
[2019-03-11 15:37] VITALS: BMI 31.4
--- NOTE | ~2019-08-15 | EC ---
PATIENT:CHRISTIAN GRAF DATE OF SERVICE: 08/15/19 SEX: M MEDICAL RECORD: [id number] DATE OF : 31 LOCATION:[facility] AGE OF PATIENT: 83 ADMISSION DATE: 08/15/19 REFERRING PHYSICIAN: INTERPRETING PHYSICIAN: BRITTANY LAN MD ECHOCARDIOGRAM REPORT ECHO CHARGES 4 ECHO COMPLETE Date: 08/15/19 CLINICAL DIAGNOSIS: A-FIB/EDEMA/SOB H/O HTN/PACEMAKER PLACEMENT ECHOCARDIOGRAPHIC MEASUREMENTS (adult normal given) AC root (d.<3.7cm) 3.3 cm LV Septum d (<1.2 cm> 1.3 cm Valve Excursion 1.8 cm LV Septum (systole) 1.8 cm Left Atria (s.<4.0cm> 5.2 cm LVPW d(<1.2cm) 1.2 cm RV (d.<2.3cm) 2.7 cm LVPW (sytole) 1.7 cm LV diastole(<5.6CM) 5.4 cm MV E-F(>70mm/sec) cm LV systole 3.7 cm LVOT Diameter 2.0 cm MV exc.(>10mm) cm Est.ejection fraction (50-75%) % DOPPLER: LVIT cm/sec A cm/sec E 78.0 cm/sec LA cm/sec RVSP 34.4 mmHg LVOT 63.0 cm/sec AOP1/2T m/s Asc. Ao 102 cm/sec RVOT 50.0 cm/sec RA cm/sec PA 77.0 cm/sec AV Gradient Peak 4.1 mmHg AV Mean 2.2 mmHg AV Area 1.6 cm MV Gradient Peak 4.1 mmHg MV Mean 1.5 mmHg MV Area cm COMMENTS: OP - HC Silica Mixer Operator: 1 AARON RICHMOND Reverberatory Furnace Supervisor: 2 Dr. Webb TAPE# PACS Pericardial Effusion N DATE OF SERVICE: Adequate 2D, color flow imaging, spectral Doppler, and M-Mode. Mild LVH. LV internal dimensions are normal. There is mild septal hypokinesis secondary to underlying paced rhythm. Overall, LV function lower limits of normal, mildly reduced at 45% to 50%. Aortic valve is sclerosed without evidence of stenosis by Doppler interrogation. Left atrium is dilated at 5.2 cm. Mitral valve shows no prolapse. Trace MR. Right-sided chambers are grossly normal. Mild TR. ECHOCARDIOGRAM REPORT [id number] CHRISTIAN GRAF TRANSINT:[id number] Voice Confirmation ID: [id number] DOCUMENT ID: [id number] BRITTANY LAN MD CC: [id number] DICTATION DATE: 08/18/19 1112 SPONGE HOOKER: 08/18/19 1240 DEP CLI 08/15/19 [place] [id number] [place] [id number]
== END | disposition home or self-care (01) ==
LOC: D.HCCECHO 11:21
PROVIDERS: ATTEND Internal Medicine Interventional Cardiology
DX: I10 Essential (primary) hypertension (principal)

== ENCOUNTER 2019-08-29 13:02 | Emergency (ER) | payer MEDICARE, OTHER ==
[~2019-08-29] VITALS: Ht 177.8 cm; Wt 101.8 kg
[2019-08-29 13:07] VITALS: Ht 177.8 cm; Wt 101.8 kg
[2019-08-29 13:28] LABS: BASOPHILS 0.3 % (0-2); EOSINOPHILS 4.6 % (0-7); HEMATOCRIT 39.1 % (42.0-54.0); HEMOGLOBIN 12.2 g/dL (13.5-17.5); IMMATURE GRANULOCYTES 0.3 % (0-5); MCH 30.7 pg (26.0-34.0); MCHC 31.2 g/dL (31.0-37.0); MCV 98.2 fL (80.0-100.0); MEAN PLATELET VOLUME 10.1 fL (7.4-10.4); MONOCYTES 6.2 % (2-11); NEUTROPHILS 75.6 % (40-80); PLATELET COUNT 174 10x3/uL (130-400); RBC 3.98 10x6/uL (4.20-6.10); RDW 14.8 % (11.5-14.5); WBC 7.6 10x3/uL (4.8-10.8)
[2019-08-29 13:37] LABS: CALC OSMOLALITY 281 mosm/kg (275-300); CALCIUM 9.3 mg/dL (8.5-10.1); CARBON DIOXIDE 32.3 mmol/L (21.0-32.0); CHLORIDE - SERUM 101 mmol/L (98-107); CREATININE - SERUM 1.5 mg/dL (0.6-1.3); GLUCOSE 114 mg/dL (74-106); POTASSIUM - SERUM 3.7 mmol/L (3.5-5.1); SODIUM 140 mmol/L (136-145); UREA NITROGEN 18 mg/dL (7-18); eGFR NON AFRICAN AMERICAN 47 mL/min (90-120)
[2019-08-29 13:39] LABS: INR 1.14 (0.85-1.17); PROTIME 14.6 SECONDS (11.6-15.0)
[2019-08-29 13:54] LABS: ALBUMIN 3.1 g/dL (3.4-5.0); ALKALINE PHOSPHATASE 58 U/L (30-120); ALT (SGPT) 19 U/L (10-68); BILIRUBIN - TOTAL 0.38 mg/dL (0.2-1.3); CKMB 1.3 U/L (0.0-3.6); CREATINE KINASE 72 UL (21-232); MAGNESIUM - SERUM 2.1 mg/dL (1.8-2.4); PROTEIN - SERUM 7.7 g/dL (6.4-8.2); TROPONIN-I < 0.017 ng/mL (0.000-0.060)
[2019-08-29 15:03] VITALS: BP 135/71
== END 2019-08-29 15:04 | disposition left against medical advice (07) ==
LOC: D.ER 13:02
PROVIDERS: Family Medicine
DX: R07.9 Chest pain, unspecified (principal); I25.10 Atherosclerotic heart disease of native coronary artery without angina pectoris; E11.9 Type 2 diabetes mellitus without complications; I11.0 Hypertensive heart disease with heart failure; I50.9 Heart failure, unspecified; Z95.0 Presence of cardiac pacemaker; I48.91 Unspecified atrial fibrillation; Z79.84 Long term (current) use of oral hypoglycemic drugs

== ENCOUNTER 2019-09-29 09:32 | Outpatient (CLI) | payer MEDICARE, OTHER ==
[~2019-09-29] VITALS: Ht 182.9 cm; Wt 104.5 kg
[2019-09-29 10:28] LABS: APTT 31.6 SECONDS (22.8-39.4); INR 1.16 (0.85-1.17); PROTIME 14.8 SECONDS (11.6-15.0)
[2019-09-29 10:34] LABS: CALCIUM 9.3 mg/dL (8.5-10.1); CARBON DIOXIDE 37.4 mmol/L (21.0-32.0); CREATININE - SERUM 1.3 mg/dL (0.6-1.3); POTASSIUM - SERUM 4.4 mmol/L (3.5-5.1)
[2019-09-29 10:35] LABS: HEMATOCRIT 37.4 % (42.0-54.0); HEMOGLOBIN 11.5 g/dL (13.5-17.5); LYMPHOCYTES 15.5 % (15-50); MCH 29.6 pg (26.0-34.0); MCHC 30.7 g/dL (31.0-37.0); MCV 96.1 fL (80.0-100.0); MEAN PLATELET VOLUME 9.5 fL (7.4-10.4); NEUTROPHILS 75.6 % (40-80); PLATELET COUNT 162 10x3/uL (130-400); RBC 3.89 10x6/uL (4.20-6.10); RDW 14.4 % (11.5-14.5); WBC 5.9 10x3/uL (4.8-10.8)
[2019-09-29 10:43] VITALS: Ht 182.9 cm; Wt 104.5 kg
[2019-09-29] MEDS ORDERED: LOPRESSOR25 MG PO (11:05)
[2019-09-29] MEDS ORDERED: ULTRAM50 MG PO (11:08)
[2019-09-29 14:55] LABS: PROTEIN - BODY FLUID 2.8 G/DL
--- NOTE | 2019-09-29 15:17 | NUR ---
DC INSTRUCTIONS GIVEN TO PT/SPOUSE. STATE UNDERSTANDING. DC'D IV CATH FULLY INTACT. WILL DC SHORTLY.
--- NOTE | 2019-09-29 15:44 | NUR ---
PT LEFT UNIT VIA WC AT 1534
[2019-09-29 17:04] LABS: EOS BF 13 %; MACROPHAGES BF 7 %; MESOTHELIALS BF 4 %; NEUT - BF 17 %
== END 2019-09-29 15:34 | disposition home or self-care (01) ==
LOC: D.SP 09:32 → D.CT 11:00 → D.SP 15:34 → D.CT 09-30 13:00
PROVIDERS: Radiology Diagnostic Radiology; ATTEND Family Medicine
DX: J91.8 Pleural effusion in other conditions classified elsewhere (principal); R06.02 Shortness of breath; I10 Essential (primary) hypertension; E11.9 Type 2 diabetes mellitus without complications; Z79.84 Long term (current) use of oral hypoglycemic drugs

== ENCOUNTER → 2019-10-08 12:45 | Outpatient (CLI) | payer MEDICARE, OTHER ==
[2019-09-29 10:43] VITALS: BMI 31.2
[~2019-10-08 12:45] MED LIST changes: +LOPRESSOR25 MG PO
== END | disposition home or self-care (01) ==
LOC: D.CT 12:45
PROVIDERS: ATTEND Family Medicine
DX: R06.02 Shortness of breath (principal); J90 Pleural effusion, not elsewhere classified

== ENCOUNTER 2019-12-26 07:22 | Day surgery (SDC) | payer MEDICARE, OTHER ==
[~2019-12-26] VITALS: Ht 182.9 cm; Wt 109.1 kg
[2019-12-26 07:50] LABS: BASOPHILS 0.4 % (0-2); EOSINOPHILS 3.6 % (0-7); HEMATOCRIT 36.1 % (42.0-54.0); HEMOGLOBIN 11.2 g/dL (13.5-17.5); IMMATURE GRANULOCYTES 0.2 % (0-5); LYMPHOCYTES 15.7 % (15-50); MCH 30.2 pg (26.0-34.0); MCV 97.3 fL (80.0-100.0); MEAN PLATELET VOLUME 10.1 fL (7.4-10.4); MONOCYTES 5.9 % (2-11); NEUTROPHILS 74.2 % (40-80); PLATELET COUNT 153 10x3/uL (130-400); RBC 3.71 10x6/uL (4.20-6.10); RDW 15.3 % (11.5-14.5); WBC 4.8 10x3/uL (4.8-10.8)
[2019-12-26 07:58] LABS: ANION GAP 9.5 mmol/L (8-16); APTT 33.4 SECONDS (22.8-39.4); CALCIUM 9.2 mg/dL (8.5-10.1); CARBON DIOXIDE 30.4 mmol/L (21.0-32.0); CREATININE - SERUM 1.3 mg/dL (0.6-1.3); INR 1.12 (0.85-1.17); POTASSIUM - SERUM 3.9 mmol/L (3.5-5.1); PROTIME 14.3 SECONDS (11.6-15.0)
[2019-12-26 10:14] VITALS: Ht 182.9 cm; Wt 109.1 kg
--- NOTE | 2019-12-26 14:50 | NUR ---
DISCHARGE INSTRUCTIONS REVIEWED WITH PATIENT AND SPOUSE, PATIENT DISCHARGED HOME VIA WHEELCHAIR TO PRIVATE VEHICLE WITH FRIEND AND SPOUSE
== END 2019-12-26 14:50 | disposition home or self-care (01) ==
LOC: D.SP 07:22 → D.CT 10:00 → D.SP 10:00
PROVIDERS: Radiology Diagnostic Radiology; ATTEND Family Medicine
DX: J90 Pleural effusion, not elsewhere classified (principal); R07.9 Chest pain, unspecified; R10.9 Unspecified abdominal pain; I10 Essential (primary) hypertension; E11.9 Type 2 diabetes mellitus without complications